=== PATIENT | male | born 1960 | race Two or more races ===

== ENCOUNTER 2024-08-15 16:36 | Inpatient (IN) | payer MEDICAID, OTHER ==
[~2024-08-15] VITALS: Ht 180.3 cm; Wt 87.2 kg
[2024-08-15 18:02] LABS: Basophils # (auto) 0 10 ^3/uL (0-0.2); Basophils % (auto) 0.2 % (0.0-2.0); Eosinophils # (auto) 0.1 10 ^3/uL (0-0.8); Eosinophils % (auto) 0.9 % (0.0-7.0); Hematocrit 41.6 % (41.0-53.0); Hemoglobin 13.6 g/dL (13.5-17.5); Lymphocytes # (auto) 1.8 10 ^3/uL (0.4-5.4); Lymphocytes % (auto) 20.1 % (10.0-50.0); Mean Corpuscular Hemoglobin 27.3 pg (28.0-32.0); Mean Corpuscular Hgb Conc. 32.7 g/dL (32.0-36.0); Mean Corpuscular Volume 83.7 fL (80.0-100.0); Monocytes # (auto) 0.9 10 ^3/uL (0-1.3); Monocytes % (auto) 10.7 % (0.0-12.0); Neutrophils # (auto) 5.9 10 ^3/uL (1.6-8.6); Neutrophils % (auto) 68.1 % (37.0-80.0); Nucleated Red Blood Cells % 0.4 %; Platelet Count (auto) 136 10^3/uL (140-450); Red Blood Cells 4.97 10^6/uL (4.5-5.90); White Blood Cell 8.7 10^3/uL (4.4-10.8)
--- NOTE | 2024-08-15 18:05 | DVH ---
EXAM: XY CHEST PORTABLE TECHNIQUE: Single frontal chest radiograph CLINICAL HISTORY: Shortness of breath COMPARISON: None Findings/Impression: Frontal chest radiograph demonstrates no acute osseous or superficial soft tissue abnormalities. The trachea is midline. The cardiac silhouette and mediastinum are within normal limits. No pneumothorax, pleural effusions, or consolidations.
[2024-08-15 18:17] LABS: Alanine Aminotransferase 30 U/L (7-40); Albumin 3.8 g/dL (3.2-4.8); Alkaline Phosphatase 108 U/L (46-116); Anion Gap 9 (5-15); Aspartate Aminotransferase 27 U/L (13-40); BUN/Creatinine Ratio 26.1 (10.0-20.0); Calcium 9.3 mg/dL (8.7-10.4); Carbon Dioxide 26 mmol/L (20-31); Chloride 103 mmol/L (98-107); Potassium 4.3 mmol/L (3.5-5.1); Sodium 138 mmol/L (136-145)
[2024-08-15 18:18] LABS: Bilirubin, Total 1.1 mg/dL (0.2-1.0); Blood Urea Nitrogen 48 mg/dL (9-23); Glucose 135 mg/dL (74-106); Total Protein 5.9 g/dL (5.7-8.2)
--- NOTE | 2024-08-15 22:53 | ED.PDOC ---
HPI Comments Patient is a obese 63-year-old male who arrives the ED with complaints of chest pain and shortness a breath events that have occurred at night over the past few days. Patient states the daytime the symptoms seemed to resolve. Patient denies any fever nausea or vomiting. Patient denies any history of pulmonary or cardiac concerns. Vital signs were stable on arrival. Chief Complaint: Shortness of Breath Time Seen by MD: 17:34 Reviewed Notes: Nurses Notes Allergies: Coded Allergies: NO KNOWN ALLERGIES (Unverified , 08/15/24) Information Source: Patient Mode of Arrival: Ambulatory Severity: Moderate Timing: Days Duration: Intermittent Prehospital treatment: None Location: Substernal Quality: Pressure, Heavy Onset: At Rest Cardiac Risk Factors: None PE Risk Factors: None History of: None Past Medical History PAST MEDICAL HISTORY: Denies Surgical History: Denies all surgeries Family History Family History: Reviewed,noncontributory to illness, No family hx of Cancer, No family hx of DM, No family hx of Heart pretty, No family hx of HTN, No family hx ofKidney pretty, No family hx of Liver pretty, No family hx of Lung pretty, No family hx of Stroke Social History Smoker: Non-Smoker Alcohol: Denies ETOH Use Drugs: Denies Drug Use Lives In: Home Constitutional: reports: weakness; denies: chills, diaphoresis, fatigue, fever, malaise, sweats, others EENTM: denies: blurred vision, double vision, ear bleeding, ear discharge, ear drainage, ear pain, ear ringing, eye pain, eye redness, hearing loss, mouth pain, mouth swelling, nasal discharge, nose bleeding, nose congestion, nose pain, photophobia, tearing, throat pain, throat swelling, voice changes, others Respiratory: reports: shortness of breath; denies: cough, hemoptysis, orthopnea , SOB at rest, SOB with excertion, stridor, wheezing, others Cardiovascular: reports: chest pain; denies: dizzy spells, diaphoresis, Dyspnea on exertion, edema, irregular heart beat, left arm pain, lightheadedness, palpitations, PND, syncope, others Gastrointestinal: denies: abdomen distended, abdominal pain, blood streaked bowels, constipated, diarrhea, dysphagia, difficulty swallowing, hematemesis, melena, nausea, poor appetite, poor fluid intake, rectal bleeding, rectal pain, vomiting, others Genitourinary: denies: burning, dysuria, flank pain, frequency, hematuria, incontinence, penile discharge, penile sore, pain, testicle pain, testicle swelling, urgency, others Neurological: denies: dizziness, fainting, headache, left sided numbness, left sided weakness, numbness, paresthesia, pre-existing deficit, right sided numbness, right sided weakness, seizure, speech problems, tingling, tremors, weakness, others Musculoskeletal: denies: back pain, gout, joint pain, joint swelling, muscle pain, muscle stiffness, neck pain, others Integumetry: denies: bruises, change in color, change in hair/nails, dryness, laceration, lesions, lumps, rash, wounds, others Allergic/Immunocompromised: denies: Difficulty Healing, Frequent Infections, Hives, Itching, others Hematologic/Lymphatic: denies: anemia, blood clots, easy bleeding, easy bruising, swollen glands, others Endocrine: denies: excessive hunger, excessive sweating, excessive thirst, excessive urination, flushing, intolerance to cold, intolerance to heat, unexplained weight gain, unexplained weight loss, others Psychiatric: denies: anxiety, bipolar disorder, depression, hopeless, panic disorder, schizophrenia, sleepless, suicidal, others Physical Exam General Appearance: Moderate Distress (Patient presents as a tyol-ka-jfecktjviv ill 63-year-old male. Patient does not appear to be in good overall health.), Obese HEENT: Normal ENT Inspection, Pharynx Normal, TMs Normal Neck: Full Range of Motion, Non-Tender, Normal, Normal Inspection Respiratory: Chest Non-Tender, Lungs Clear, No Accessory Muscle Use, No Respiratory Distress, Normal Breath Sounds, Other (Unremarkable auscultation bilateral lung arita.) Cardiovascular: No Edema, No JVD, No Murmur, No Gallop, Normal Peripheral Pulses, Regular Rate/Rhythm, Other (Unremarkable cardiac evaluation.) Breast Exam: Deferred Gastrointestinal: No Organomegaly, Non Tender, No Pulsatile Mass, Normal Bowel Sounds, Soft Genitalia: Deferred Pelvic: Deferred Rectal: Deferred Extremities: No calf tenderness, Normal capillary refill, Normal inspection, Normal range of motion, Non-tender, No pedal edema Neurologic: Alert, No Motor Deficits, Normal Affect, Normal Mood, No Sensory Deficits Cerebellar Function: Normal Reflexes: Normal Skin: Dry, Normal Color, Warm Lymphatic: No Adenopathy Was a procedure done? Was a procedure done?: No CP Differential Dx Differential Diagnosis: A-fib, A-Flutter, Atrial Dysrhythmia, AV Block 1st Degree, Heart Failure, Hyperventilation, DC, Renal Failure Differential Diagnosis: CHF Differential Diagnosis: Angina X-Ray, Labs, Meds, VS Vital Signs Date Time Temp Pulse Resp B/P (MAP) Pulse Ox O2 Delivery O2 Flow Rate FiO2 08/15/24 21:59 98.3 101 19 147/89 (108) 96 98.3 08/15/24 21:59 101 19 96 Room Air 08/15/24 16:54 102 08/15/24 16:49 97.9 109 16 133/74 (93) 96 Lab Test 08/15/24 20:56 08/15/24 18:36 08/15/24 17:36 Range/Units Troponin I High Sensitivity 502 *H 510 *H 495 *H </=54 ng/L White Blood Count 8.7 4.4-10.8 10^3/uL Red Blood Count 4.97 4.5-5.90 10^6/uL Hemoglobin 13.6 13.5-17.5 g/dL Hematocrit 41.6 41.0-53.0 % Mean Corpuscular Volume 83.7 80.0-100.0 fL Mean Corpuscular Hemoglobin 27.3 L 28.0-32.0 pg Mean Corpuscular Hemoglobin Concent 32.7 32.0-36.0 g/dL Red Cell Distribution Width 18.0 H 11.8-14.3 % Platelet Count 136 L 140-450 10^3/uL Mean Platelet Volume 9.0 6.9-10.8 fL Neutrophils (%) (Auto) 68.1 37.0-80.0 % Lymphocytes (%) (Auto) 20.1 10.0-50.0 % Monocytes (%) (Auto) 10.7 0.0-12.0 % Eosinophils (%) (Auto) 0.9 0.0-7.0 % Basophils (%) (Auto) 0.2 0.0-2.0 % Neutrophils # (Auto) 5.9 1.6-8.6 10 ^3/uL Lymphocytes # (Auto) 1.8 0.4-5.4 10 ^3/uL Monocytes # (Auto) 0.9 0-1.3 10 ^3/uL Eosinophils # (Auto) 0.1 0-0.8 10 ^3/uL Basophils # (Auto) 0 0-0.2 10 ^3/uL Nucleated Red Blood Cells 0.4 % Sodium Level 138 136-145 mmol/L Potassium Level 4.3 3.5-5.1 mmol/L Chloride Level 103 98-107 mmol/L Carbon Dioxide Level 26 20-31 mmol/L Anion Gap 9 5-15 Blood Urea Nitrogen 48 H 9-23 mg/dL Creatinine 1.84 H 0.700-1.30 mg/dL Glomerular Filtration Rate Calc 40 >90 mL/min BUN/Creatinine Ratio 26.1 H 10.0-20.0 Serum Glucose 135 H 74-106 mg/dL Calcium Level 9.3 8.7-10.4 mg/dL Total Bilirubin 1.1 H 0.2-1.0 mg/dL Aspartate Amino Transferase (AST) 27 13-40 U/L Alanine Aminotransferase (ALT) 30 7-40 U/L Alkaline Phosphatase 108 46-116 U/L Total Protein 5.9 5.7-8.2 g/dL Albumin 3.8 3.2-4.8 g/dL X-Ray, Labs, Meds, VS Comment All studies performed the ED were evaluated by me personally. Laboratories revealed what appears to be an acute on chronic renal concern as well as an el evated troponin. EKG showed a sinus tachycardia with a rate of 102. Multiple premature complexes in the ventricular and supraventricular areas as well as right bundle-branch block. AR interval of 187 and QT interval 409. Chest x-ray was unremarkable for any consolidation. No pneumothorax or effusions noted. Due to the elevated troponins and questionable EKG, patient will be admitted for cardiac evaluation tomorrow. Time of 1ST Reevaluation: 22:56 Reevaluation 1ST: Improved Consultation: PCP, Cardiology Patient Education/Counseling: Diagnosis, Treatment Family Education/Counseling: Diagnosis, Treatment Departure 1 Departure Time of Disposition: 22:56 Impression: Primary Impression: Acute renal failure superimposed on chronic kidney disease Additional Impressions: Elevated troponin Chest pain Disposition: 09 ADMITTED INPATIENT Condition: Stable Discharged With: Self Critical Care Note Critical Care Time?: No Stability Stability form required: No Heart Score Heart Score: Heart Score Response (Comments) Value History Slightly Suspicious 0 EKG Repolarization Disturb 1 Age 45-64 1 Risk Factors 1 or 2 risk factors 1 Troponin >3 x's Normal limit 2 Total 5 GIANA GRIFFITHS [facility] Aug 15, 2024 22:53
[2024-08-16] MEDS ORDERED: SODIUM CHLORIDE 0.9% 1,000 ML IV SCH (02:00)
[2024-08-16] MEDS ORDERED: ONDANSETRON HCL 4 MG/2 ML VIAL IV PRN (02:00)
[2024-08-16] MEDS ORDERED: DOCUSATE SOD 100 MG CAP PO PRN (02:00)
[2024-08-16] MEDS ORDERED: MORPHINE SULFATE INJ 2 MG/ml SYRG IV PRN ×2 (02:00→02:30)
[2024-08-16] MEDS ORDERED: hydrALAZINE HCL 20 MG/ML VL IV PRN ×2 (02:30→10:00)
[2024-08-16] MEDS ORDERED: NITROGLYCERIN 0.4 MG SL TAB SL PRN (02:30)
[2024-08-16] MEDS ORDERED: DEXTROSE (50%) 50ML SYRG IV PRN (02:30)
--- NOTE | 2024-08-16 02:47 | DVHHP2 ---
History of Present Illness Reason for Visit: Acute chest pain History of Present Illness The patient is a 63 years old male with past medical history of hypertension and diabetes mellitus who presented to [facility] ED with complaint of chest pain. Patient reports symptoms progressively get worse with shortness of b reaths, bilateral lower extremity swelling, generalized weakness, getting worse today that prompted this visit. Patient reports he has been taking Lasix from a friend at home due to lower extremity swelling. Patient was seen and evaluated in the ED, laboratory data shows WBC 8.7, platelets 136, sodium 138, potassium 4.3, BUN 48, creatinine 1.84, GFR 40, glucose 135, troponin 502, blood pressure 147/89, heart rate 101, temperature 98.3 F, O2 saturation 96% on oxygen. Patient was given aspirin 325 mg p.o. x1, please see medication orders section in the computer. On my assessment, patient denied chest pain at this moment, headache, no dizziness, no diaphoresis, no nausea, no vomiting, no fever, no chills. Patient was admitted for further evaluation and medical management. Past Medical History Hypertension, DM Past Surgical History Denies all surgeries Family History Reviewed, noncontributory to the management of this case. Past Social History The patient lives at home, denies smoking, alcohol or illicit drugs abuse. Review of Systems Constitutional: Yes: Weakness; No: Fever, Chills, Sweats, Malaise, Other Eyes: No: Pain, Vision change, Conjunctivae inflammation, Eyelid inflammation, Other, Redness ENT: No: Ear pain, Ear discharge, Nose pain, Nose discharge, Nose congestion, Mouth pain, Mouth swelling, Throat pain, Throat swelling, Other Respiratory: Shortness of breath, SOB with excertion, Other (SOB at rest); No: Cough, Dry, Wheezing, Hemoptysis, Pleuritic Pain, Sputum, Wheezing Cardiovascular: Chest Pain; No: Palpitations, Orthopnea, Paroxysmal Noc. Dyspnea, Edema, Lt Headedness, Other Gastrointestinal: No: Nausea, Vomiting, Abdominal Pain, Diarrhea, Constipation, Melena, Hematochezia, Other Genitourinary: No Dysuria, No Frequency, No Incontinence, No Hematuria, No Retention, No Other Musculoskeletal: No: other, neck pain, shoulder pain, arm pain, back pain, hand pain, leg pain, foot pain Skin: No: Rash, Lesions, Jaundice, Bruising, Other Neurological: No: Weakness, Numbness, Incoordination, Change in speech, Confusion, Seizures, Other Allergies: Coded Allergies: NO KNOWN ALLERGIES (Unverified , 08/15/24) Medications Current Medications Medications Dose Ordered Sig/Luis Armando Route Start Time Stop Time Status Last Admin Dose Admin Aspirin 81 mg DAILY PO 08/16/24 10:00 Atorvastatin Calcium 20 mg HS PO 08/16/24 22:00 Sodium Chloride 1,000 ml @ 60 mls/hr [id number] IV 08/16/24 02:00 Acetaminophen/ Hydrocodone Bitart 1 tab Q4HP PRN PO 08/16/24 02:00 Ondansetron HCl 4 mg Q4HP PRN IV 08/16/24 02:00 Docusate Sodium 100 mg BIDPRN PRN PO 08/16/24 02:00 Acetaminophen 650 mg Q6HP PRN PO 08/16/24 02:00 Morphine Sulfate 2 mg Q4HPRN PRN IV 08/16/24 02:00 Exam Vital Signs Vital Signs Date Time Temp Pulse Resp B/P (MAP) Pulse Ox O2 Delivery O2 Flow Rate FiO2 08/15/24 21:59 98.3 101 19 147/89 (108) 96 98.3 08/15/24 21:59 Room Air General Appearance: Alert, Oriented X3, Cooperative, No acute distress HEENT: Atraumatic, PERRLA, EOMI, Mucous membr. moist/pink Respiratory: Normal air movement, Other (Diminished breath sounds) Cardiovascular: Regular rate, Normal S1, Normal S2, No murmurs Abdominal: Normal bowel sounds, Soft, No tenderness, No hepatospenomegaly, No masses Extremities: No clubbing, No cyanosis, No edema, Normal pulses, No tenderness/swelling Skin: No rashes, No breakdown, No significant lesion Neuro: Normal speech, Normal tone, Sensation intact, Cranial nerves 3-12 NL, Reflexes 2+, Other (Generalized weakness) Psych/Mental Status: Mental status NL, Mood NL Labs/Xrays Labs Test 08/15/24 20:56 08/15/24 17:36 Range/Units Troponin I High Sensitivity 502 *H </=54 ng/L White Blood Count 8.7 4.4-10.8 10^3/uL Red Blood Count 4.97 4.5-5.90 10^6/uL Hemoglobin 13.6 13.5-17.5 g/dL Hematocrit 41.6 41.0-53.0 % Mean Corpuscular Volume 83.7 80.0-100.0 fL Mean Corpuscular Hemoglobin 27.3 L 28.0-32.0 pg Mean Corpuscular Hemoglobin Concent 32.7 32.0-36.0 g/dL Red Cell Distribution Width 18.0 H 11.8-14.3 % Platelet Count 136 L 140-450 10^3/uL Mean Platelet Volume 9.0 6.9-10.8 fL Neutrophils (%) (Auto) 68.1 37.0-80.0 % Lymphocytes (%) (Auto) 20.1 10.0-50.0 % Monocytes (%) (Auto) 10.7 0.0-12.0 % Eosinophils (%) (Auto) 0.9 0.0-7.0 % Basophils (%) (Auto) 0.2 0.0-2.0 % Neutrophils # (Auto) 5.9 1.6-8.6 10 ^3/uL Lymphocytes # (Auto) 1.8 0.4-5.4 10 ^3/uL Monocytes # (Auto) 0.9 0-1.3 10 ^3/uL Eosinophils # (Auto) 0.1 0-0.8 10 ^3/uL Basophils # (Auto) 0 0-0.2 10 ^3/uL Nucleated Red Blood Cells 0.4 % Sodium Level 138 136-145 mmol/L Potassium Level 4.3 3.5-5.1 mmol/L Chloride Level 103 98-107 mmol/L Carbon Dioxide Level 26 20-31 mmol/L Anion Gap 9 5-15 Blood Urea Nitrogen 48 H 9-23 mg/dL Creatinine 1.84 H 0.700-1.30 mg/dL Glomerular Filtration Rate Calc 40 >90 mL/min BUN/Creatinine Ratio 26.1 H 10.0-20.0 Serum Glucose 135 H 74-106 mg/dL Calcium Level 9.3 8.7-10.4 mg/dL Total Bilirubin 1.1 H 0.2-1.0 mg/dL Aspartate Amino Transferase (AST) 27 13-40 U/L Alanine Aminotransferase (ALT) 30 7-40 U/L Alkaline Phosphatase 108 46-116 U/L Total Protein 5.9 5.7-8.2 g/dL Albumin 3.8 3.2-4.8 g/dL PATIENT: ROSALINDA WETZELACCT: [id number] UNIT: [id number] : 1960 LOC: ER ROOM / BED: / AGE / SEX: 63 / M ADM STATUS: REG ER SERVICE [id number] ORDERING PHYSICIAN: GIANA GRIFFITHS PAC PROCEDURE(s): CXRP - CHEST PORTABLE REASON: Shortness of breath ORDER NUMBER(s): [id number], ACCESSION NUMBER(s): [id number] EXAM: XY CHEST PORTABLE TECHNIQUE: Single frontal chest radiograph CLINICAL HISTORY: Shortness of breath COMPARISON: None Findings/Impression: Frontal chest radiograph demonstrates no acute osseous or superficial soft tissue abnormalities. The trachea is midline. The cardiac silhouette and mediastinum are within normal limits. No pneumothorax, pleural effusions, or consolidations. Assessment/Plan Assessment/Plan Elevated troponin Acute chest pain Generalized weakness Acute respiratory distress Acute on chronic renal failure Diabetes mellitus with hyperglycemia Plan 1. Admit to telemetry unit 2. Breathing treatment 3. Pain control management 4. Management of fluids and electrolytes 5. Consultation for cardiology/hospitalist 6. Diagnostic tests chest x-ray 7. DVT prophylaxis on aspirin 8. Repeat labs CBC, CMP in a.m. 9. Continue with current medical management 10. Treatment plan discussed with patient and RN. Patient verbalized understanding. Plan discussed with: Patient, Daughter, Other (RN) My Orders Orders - CHRISTIN DENT DNP Procedure Category Date Status Time Complete Blood Count LAB 08/16/24 Logged 04:00 Comprehensive LAB 08/16/24 Logged Metabolic Panel 04:00 *[facility] CONS 08/16/24 Transmitted -[place] 01:50 * Cardiology Consult CONS 08/16/24 Transmitted 01:50 Aspirin Tablet PHA 08/16/24 In Process 10:00 Atorvastatin (Lipitor) PHA 08/16/24 In Process 22:00 Allergies KATRIN 08/16/24 In Process 01:50 Code Status CODE 08/16/24 Transmitted 01:50 Sodium Chloride 0.9% PHA 08/16/24 In Process 02:00 Oxygen Per Hour RT 08/16/24 Transmitted 01:50 Hydrocodone-Acet PHA 08/16/24 In Process 5/325mg Tab ([place] 02:00 Ondansetron Hcl PHA 08/16/24 In Process (Zofran) 02:00 Docusate Sodium PHA 08/16/24 In Process Capsule (Colace 02:00 Complete Blood Count LAB 08/17/24 Verified 04:00 Comprehensive LAB 08/17/24 Verified Metabolic Panel 04:00 Condition: Serious KATRIN 08/16/24 In Process 01:50 Acetaminophen Tablet PHA 08/16/24 In Process (Tylenol Tablet) 02:00 Bedrest With Bathroom KATRIN 08/16/24 In Process Privileg 01:50 Morphine Sulfate PHA 08/16/24 In Process Injection 02:00 Sequential KATRIN 08/16/24 In Process Compression Device Consistent DIET 08/16/24 Verified Carb(Ccho)Diabetes Breakfast B-Type Natriuretic LAB 08/16/24 Verified Peptide 02:23 Hydralazine Injection PHA 08/16/24 Verified (Apresoline Inject 02:30 Furosemide Injection PHA 08/16/24 Verified (Lasix Injection) 02:30 Furosemide Injection PHA 08/16/24 Verified (Lasix Injection) 10:00 Glucose Blood PHA 08/16/24 Verified (Accu-Chek Comfort 07:00 Mild Sliding Scale PHA 08/16/24 Verified 07:00 Dextrose 50% Syringe PHA 08/16/24 Verified 02:30 Admit ADMIT 08/16/24 Verified 02:23 Sodium Chloride Lock PHA 08/16/24 Verified (Saline Lock Ns) 06:00 Nitroglycerin PHA 08/16/24 Verified Sublingual (Ntrostat 02:30 Morphine Sulfate PHA 08/16/24 Verified Injection 02:30 Notify Md Of Changes [facility] 08/16/24 Verified From Base 02:23 Pilot Can Router For [facility] 08/16/24 Verified 24 Hours 02:23 Emergency Dysrhythmia [facility] 08/16/24 Verified Protocol 02:23 Rhythm Strips Once [facility] 08/16/24 Verified Every Shift 02:23 Oxygen By Nasal RT 08/16/24 Verified Cannula 02:23 Problem List: (1) Acute chest pain (2) Elevated troponin (3) Acute respiratory distress (4) Acute on chronic renal failure (5) Generalized weakness (6) Diabetes mellitus with hyperglycemia Date of Service: Aug 16, 2024 Billing Provider: CHRISTIN DENT DNP Common Visit Codes: [id number] INP/OBS CARE (HIGH) CHRISTIN DENT DNP Aug 16, 2024 02:47
[2024-08-16] MEDS: ASPirin-EC 325mg tab PO ONE (05:25)
[2024-08-16] MEDS: SODIUM CHLOR 0.9% PF (SALINE LOCK) 10ML VIAL/SYR IV SCH (05:43)
[2024-08-16] MEDS: FUROSEMIDE 20 MG/2 ML VIAL IV ONE (05:43)
[2024-08-16] MEDS: InsuLIN REG 1unit/0.01ml Soln (100units/ml) SC SCH (07:00)
[2024-08-16] MEDS: ACCU-CHEK COMFORT CURVE STRIP VI SCH (07:00)
[2024-08-16 07:13] LABS: Basophils # (auto) 0.1 10 ^3/uL (0-0.2); Eosinophils # (auto) 0.1 10 ^3/uL (0-0.8); Eosinophils % (auto) 1.2 % (0.0-7.0); Hematocrit 45.1 % (41.0-53.0); Hemoglobin 14.5 g/dL (13.5-17.5); Lymphocytes # (auto) 1.8 10 ^3/uL (0.4-5.4); Lymphocytes % (auto) 21.6 % (10.0-50.0); Mean Corpuscular Hemoglobin 27.1 pg (28.0-32.0); Mean Corpuscular Hgb Conc. 32.2 g/dL (32.0-36.0); Mean Corpuscular Volume 84.2 fL (80.0-100.0); Monocytes # (auto) 0.8 10 ^3/uL (0-1.3); Monocytes % (auto) 9.9 % (0.0-12.0); Neutrophils # (auto) 5.4 10 ^3/uL (1.6-8.6); Neutrophils % (auto) 66.3 % (37.0-80.0); Nucleated Red Blood Cells % 0.5 %; Platelet Count (auto) 154 10^3/uL (140-450); Red Blood Cells 5.36 10^6/uL (4.5-5.90); Red Cell Distribution Width 18.5 % (11.8-14.3); White Blood Cell 8.2 10^3/uL (4.4-10.8)
[2024-08-16 07:18] LABS: Alanine Aminotransferase 29 U/L (7-40); Alkaline Phosphatase 95 U/L (46-116); Anion Gap 7 (5-15); Aspartate Aminotransferase 30 U/L (13-40); Calcium 9.7 mg/dL (8.7-10.4); Carbon Dioxide 30 mmol/L (20-31); Chloride 101 mmol/L (98-107); Glucose 94 mg/dL (74-106); Potassium 4.2 mmol/L (3.5-5.1); Sodium 138 mmol/L (136-145)
[2024-08-16 07:19] LABS: Total Protein 6.6 g/dL (5.7-8.2)
[2024-08-16 07:21] LABS: Bilirubin, Total 1.4 mg/dL (0.2-1.0); Blood Urea Nitrogen 43 mg/dL (9-23)
--- NOTE | 2024-08-16 08:54 | DVHINCON2 ---
Date Seen: Aug 16, 2024 Referring Physician LIZZIE Tai Reason for Consultation Elevated troponin History of Present Illness This is a 63-year-old male who presented to the emergency room with a chief complaint shortness of breath for two weeks. The patient complains of shortness of breath associated with RIZZO, PND, and bilateral lower extremity edema. Denies orthopnea, chest pain, palpitations, diaphoresis, or syncopal events. He underwent a 12 lead electrocardiogram revealing a sinus rhythm with an associated first-degree atrioventricular block and right bundle branch block. Troponin levels have remained flat in the high 400s- low 500s ng/L. Reports a history of pxi-kgrlzrz-lojxqieek diabetes mellitus and hypertension, nevertheless the patient has not seen a PCP in many years neither taking any home medications in the past three weeks. Past Medical History Past medical history reviewed. No other significant than mentioned above. Past Surgical History Past surgical history reviewed. No other significant than mentioned above. Family History Family history reviewed. Social History Denies the use of illicit drugs, alcohol, or tobacco use. Allergies: Coded Allergies: NO KNOWN ALLERGIES (Unverified , 08/15/24) Home Meds Denies any current home medications. Current Medications Current Medications Medications (Trade) Dose Ordered Sig/Luis Armando Route PRN Reason Start Time Stop Time Status Last Admin Aspirin 81 mg DAILY PO 08/16/24 10:00 Atorvastatin Calcium (Lipitor) 20 mg HS PO 08/16/24 22:00 Sodium Chloride 1,000 ml @ 60 mls/hr [id number] IV 08/16/24 02:00 08/16/24 02:27 DC Acetaminophen/ Hydrocodone Bitart ([place] 5/325MG Tab) 1 tab Q4HP PRN PO MODERATE PAIN (4-6 PAIN SCALE) 08/16/24 02:00 Ondansetron HCl (Zofran) 4 mg Q4HP PRN IV NAUSEA / VOMITING 08/16/24 02:00 Docusate Sodium (Colace Capsule) 100 mg BIDPRN PRN PO FOR CONSTIPATION 08/16/24 02:00 Acetaminophen (Tylenol Tablet) 650 mg Q6HP PRN PO PAIN SCALE 1-3 OR TEMP>100.4 08/16/24 02:00 Morphine Sulfate 2 mg Q4HPRN PRN IV SEVERE PAIN (7-10 PAIN SCALE) 08/16/24 02:00 Hydralazine HCl (Apresoline Injection) 10 mg Q6HP PRN IV SBP>150 08/16/24 02:30 Furosemide (Lasix Injection) 20 mg DAILY IV 08/16/24 10:00 Diagnostic Test (Pha) (Accu-Chek Comfort Curve T) 1 strip ACHS 08/16/24 07:00 08/16/24 07:00 Insulin Human Regular (InsuLIN R) ACHS SC 08/16/24 07:00 Dextrose 50 ml UD PRN IV Blood Sugar LESS THAN 60 08/16/24 02:30 Sodium Chloride (Saline Lock Ns) 10 ml Q8HR IV 08/16/24 06:00 08/16/24 05:43 Nitroglycerin (Ntrostat Sublingual) 0.4 mg Q5MINP PRN SL FOR CHEST PAIN 08/16/24 02:30 Morphine Sulfate 2 mg Q30M PRN IV FOR CHEST PAIN 08/16/24 02:30 Review of Systems Constitutional: No symptom reported Ears, Nose, & Throat: No symptom reported Eyes: No symptom reported Neurological: No symptoms reported Pulmonary/Respiratory: SOB, PND, RIZZO Cardiovascular: BLE edema Gastrointestinal: No symptom reported Genitourinary: No symptom reported Musculoskeletal: No symptom reported Skin: No symptom reported Psychiatric: No symptom reported Endocrine: No symptom reported Hemotologic/Lymphatic: No symptom reported Vital Signs Vital Signs Date Time Temp Pulse Resp B/P (MAP) Pulse Ox O2 Delivery O2 Flow Rate FiO2 08/16/24 08:18 98.7 91 16 130/85 (100) 97 98.7 08/16/24 08:18 Room Air Physical Exam General Appearance: Cooperative. Well developed. Obese. Mild acute distress. Cane at side Head Exam: Normal inspection Neck Exam: Normal inspection. Non-tender. Normal alignment Pulmonary/Respiratory: Chest non-tender. Managed bilateral breath sounds Cardiovascular/Chest: Regular rate and rhythm. S1, S2. Sinus rhythm with first-degree AV block and RBBB. No murmurs. No JVD. Peripheral Pulses: 2+ Radial (R). 2+ Radial (L). 2+ Pedal (R). 2+ Pedal (L) Abdominal Exam: Normal bowel sounds. Soft. Nontender. Ankle Exam: Positive ankle edema Lower extremities: Positive lower extremity edema, L>R Neuro/Mental Status: A&O x4. Coherent Thoughts/Psych: Normal thought pattern. Appropriate mood and affect. Good judgement and insight Appearance: Mild acute distress Skin Exam: Scab to left anterior tibia, erythema present Labs/Diagnostic Data Labs Test 08/16/24 06:28 08/15/24 20:56 Range/Units White Blood Count 8.2 4.4-10.8 10^3/uL Red Blood Count 5.36 4.5-5.90 10^6/uL Hemoglobin 14.5 13.5-17.5 g/dL Hematocrit 45.1 41.0-53.0 % Mean Corpuscular Volume 84.2 80.0-100.0 fL Mean Corpuscular Hemoglobin 27.1 L 28.0-32.0 pg Mean Corpuscular Hemoglobin Concent 32.2 32.0-36.0 g/dL Red Cell Distribution Width 18.5 H 11.8-14.3 % Platelet Count 154 140-450 10^3/uL Mean Platelet Volume 9.8 6.9-10.8 fL Neutrophils (%) (Auto) 66.3 37.0-80.0 % Lymphocytes (%) (Auto) 21.6 10.0-50.0 % Monocytes (%) (Auto) 9.9 0.0-12.0 % Eosinophils (%) (Auto) 1.2 0.0-7.0 % Basophils (%) (Auto) 1.0 0.0-2.0 % Neutrophils # (Auto) 5.4 1.6-8.6 10 ^3/uL Lymphocytes # (Auto) 1.8 0.4-5.4 10 ^3/uL Monocytes # (Auto) 0.8 0-1.3 10 ^3/uL Eosinophils # (Auto) 0.1 0-0.8 10 ^3/uL Basophils # (Auto) 0.1 0-0.2 10 ^3/uL Nucleated Red Blood Cells 0.5 % Sodium Level 138 136-145 mmol/L Potassium Level 4.2 3.5-5.1 mmol/L Chloride Level 101 98-107 mmol/L Carbon Dioxide Level 30 20-31 mmol/L Anion Gap 7 5-15 Blood Urea Nitrogen 43 H 9-23 mg/dL Creatinine 1.87 H 0.700-1.30 mg/dL Glomerular Filtration Rate Calc 40 >90 mL/min BUN/Creatinine Ratio 23.0 H 10.0-20.0 Serum Glucose 94 74-106 mg/dL Calcium Level 9.7 8.7-10.4 mg/dL Total Bilirubin 1.4 H 0.2-1.0 mg/dL Aspartate Amino Transferase (AST) 30 13-40 U/L Alanine Aminotransferase (ALT) 29 7-40 U/L Alkaline Phosphatase 95 46-116 U/L B-Type Natriuretic Peptide 1199.87 0-100 pg/mL Total Protein 6.6 5.7-8.2 g/dL Albumin 4.0 3.2-4.8 g/dL Troponin I High Sensitivity 502 *H </=54 ng/L Assessment Acute on chronic unspecified CHF, NYHA Class III, newly diagnosed NSTEMI, likely type 2 secondary to above Right bundle branch block Suspected cellulitis to LLE Xtz-lcecofc-jyuscfqcl diabetes mellitus Hypertension Likely JAMAR on CKD Obesity Plan/Recommendation (Dr. Fields) The patient presents with newly diagnosed CHF. Obtain a transthoracic echocardiogram to further asses structural function. Initiate preload and afterload reduction as tolerated. Introduce GDMT for CHF as renal function permits. Maintain strict I&Os, daily weight and fluid restriction. Continue with a bilateral lower extremity venous US rule out DVT. Obtain Nephrology and wound care consultations. Initiate broad spectrum abx, consider transition to clindamycin if cellulitis suspected, rest of work-up per primary care team. Monitor ECG changes and notify. Thank you for allowing us to participate in this patient's care. Please call if you have any questions or concerns. This medical document was created using an electronic medical record system with voice recognition software and computerized dictation system. Although this document has been carefully reviewed, there might still be some phonetic and typographical errors. Occasional wrong-word or ``sound-alike substitutions may have occurred due to the inherent limitations of voice recognition software. These areas are purely typographical due to imperfections of the software programs and do not reflect any compromise in the patient's medical care. Please read the chart carefully and recognize, using context, where these substitutions have occurred. Plan discussed with: Patient, Other Date of Service: Aug 16, 2024 Billing Provider: DINESH KRUSE MD Cardiology Common Codes: [id number] INP/OBS CARE (High) ALON AGUILAR LENS BLOCK GAUGER Aug 16, 2024 08:54
[2024-08-16 09:25] VITALS: PULSE 90; RESP 16; O2SAT 97
[2024-08-16 10:27] LABS: Magnesium 2.1 mg/dL (1.6-2.6)
--- NOTE | 2024-08-16 13:57 | DVH ---
Bilateral lower extremity venous duplex Clinical History: Edema Comparison: None Technique: Duplex Doppler evaluation of the deep venous systems of both lower extremities from the common femora l veins to the popliteal veins including color Doppler and spectral/pulsed waveform analysis was perf ormed. Findings: RIGHT SIDE: The common femoral vein demonstrates appropriate compressibility and waveform variability. There is compressibility/patency of the great saphenous vein at the proximal thigh. The femoral vein demonstrates appropriate compressibility and waveform variability. The deep femoral vein demonstrates appropriate compressibility and waveform variability. The popliteal vein demonstrates appropriate compressibility and waveform variability. There is normal compressibility at the tibioperoneal trunk. LEFT SIDE: The common femoral vein demonstrates appropriate compressibility and waveform variability. There is compressibility/patency of the great saphenous vein at the proximal thigh. The femoral vein demonstrates appropriate compressibility and waveform variability. The deep femoral vein demonstrates appropriate compressibility and waveform variability. The popliteal vein demonstrates appropriate compressibility and waveform variability. There is normal compressibility at the tibioperoneal trunk. Impression: 1. No right or left femoropopliteal venous thrombosis. HS:Y
[2024-08-16 14:52] VITALS: BP 118/89; PULSE 80; RESP 18; TEMP 98.4; O2SAT 96
[2024-08-16] MEDS: ASPirin 81 mg TAB PO SCH (16:30)
[2024-08-16] MEDS: FUROSEMIDE 20 MG/2 ML VIAL IV SCH (16:32)
[2024-08-16] MEDS: cefTRIAXone 1GM/50ML D5W 50 ML IV ONE (16:35)
[2024-08-16] MEDS: METOPROLOL TARTRATE 25 MG TAB PO SCH (16:43)
[2024-08-16 17:28] VITALS: BP 123/55; PULSE 73; RESP 18; TEMP 98.9; O2SAT 97
[2024-08-16 19:38] VITALS: PULSE 64; RESP 14; O2SAT 95
[2024-08-16] MEDS: ATORVASTATIN 20 MG TAB PO SCH (22:42)
[2024-08-16 23:05] VITALS: BP 129/89; PULSE 99; RESP 17; TEMP 98.2; O2SAT 95
--- NOTE | 2024-08-16 23:32 | DVHPN2 ---
Subjective 08/16 update- Patient doing well, still gets short of breath,. Legs with significant swelling. Minimal rales. Cardiology following and consulted. Continuing diuresis, echo tomorrow. Continue telemetry. Reviewed: H&P Changes from previous H/P or p: No Changes General: Per HPI Objective Vitals Vital Signs Date Time Temp Pulse Resp B/P (MAP) Pulse Ox O2 Delivery O2 Flow Rate FiO2 08/16/24 22:04 67 14 110/57 (74) 96 08/16/24 19:38 98.1 98.1 08/16/24 19:38 Room Air* 0 21 Exam GEN: Healthy appearing, well-developed, NAD. HEENT: NC/AT; MMM. CV: RRR, no m/r/g. LUNGS: Bibasilar rales ABD: Soft, NT/ND, NBS, no masses or organomegaly. EXT: Bilateral pitting edema 3+ up to shins. NEURO: Ambulating with no limitations. No focal deficits. Medications Current Medications Medications Dose Ordered Sig/Luis Armando Route Start Time Stop Time Status Last Admin Dose Admin Aspirin 81 mg DAILY PO 08/16/24 10:00 08/16/24 16:30 81 MG Atorvastatin Calcium 20 mg HS PO 08/16/24 22:00 08/16/24 22:42 20 MG Acetaminophen/ Hydrocodone Bitart 1 tab Q4HP PRN PO 08/16/24 02:00 Ondansetron HCl 4 mg Q4HP PRN IV 08/16/24 02:00 Docusate Sodium 100 mg BIDPRN PRN PO 08/16/24 02:00 Acetaminophen 650 mg Q6HP PRN PO 08/16/24 02:00 Morphine Sulfate 2 mg Q4HPRN PRN IV 08/16/24 02:00 Hydralazine HCl 10 mg Q6HP PRN IV 08/16/24 02:30 Furosemide 20 mg DAILY IV 08/16/24 10:00 08/16/24 16:32 20 MG Diagnostic Test (Pha) 1 strip ACHS 08/16/24 07:00 08/16/24 22:00 1 STRIP Insulin Human Regular ACHS SC 08/16/24 07:00 08/16/24 22:38 3 UNITS Dextrose 50 ml UD PRN IV 08/16/24 02:30 Sodium Chloride 10 ml Q8HR IV 08/16/24 06:00 1/3/25 22:00 10 ML Nitroglycerin 0.4 mg Q5MINP PRN SL 08/16/24 02:30 Morphine Sulfate 2 mg Q30M PRN IV 08/16/24 02:30 Ceftriaxone Sodium 50 ml @ 100 mls/hr DAILY@09 IV 08/17/24 09:00 Metoprolol Tartrate 25 mg BID PO 08/16/24 10:00 08/16/24 16:43 25 MG Hydralazine HCl 10 mg Q6HP PRN IV 08/16/24 10:00 Laboratory Results Laboratory Tests 08/16/24 06:28 Chemistry Test 08/16/24 06:28 08/16/24 09:54 Albumin 4.0 g/dL (3.2-4.8) Calcium Level 9.7 mg/dL (8.7-10.4) Total Protein 6.6 g/dL (5.7-8.2) Magnesium Level 2.1 mg/dL (1.6-2.6) Lipid panel Test 08/16/24 09:54 Cholesterol Level 160 mg/dL (< 200) HDL Cholesterol 52 mg/dL (40-59) Triglycerides Level 92 mg/dL (< 150) Cardiac Markers Test 08/16/24 06:28 B-Type Natriuretic Peptide 1199.87 pg/mL (0-100) LFT Test 08/16/24 06:28 Alanine Aminotransferase (ALT) 29 U/L (7-40) Alkaline Phosphatase 95 U/L (46-116) Aspartate Amino Transferase (AST) 30 U/L (13-40) Total Bilirubin 1.4 mg/dL (0.2-1.0) H HgA1c, TSH Test 08/16/24 09:54 Hemoglobin A1c 6.7 % A1C (<5.7) H Thyroid Stimulating Hormone (TSH) 1.49 uIU/mL (0.55-4.78) Labs and/or images reviewed: Labs reviewed by me, Image(s) reviewed by me Assessment/Plan Assessment/Plan 08/16 update- Patient doing well, still gets short of breath,. Legs with significant swelling. Minimal rales. Cardiology following and consulted. Continuing diuresis, echo tomorrow. Continue telemetry. # Acute on chronic congestive heart failure, likely diastolic, rule out systolic: # bilateral pitting edema # type 2 NSTEMI - patient presenting with chest pain shortness of breath dyspnea on exertion, orthopnea PND. NYHA worsening 2-3 - on admit DVT ultrasound negative for any DVT bilateral -BNP elevated-CXR showing possible pulmonary vascular congestion was mostly normal x-ray. -on exam patient has minimal bibasilar rales, but significant pitting edema 3+ up to upper shins. - differential includes acute on chronic CHF exacerbation but could also be chronic venous insufficiency, DVT unlikely with a rule out. --cardiology consulted, continue IV diuresis Lasix 20 b.i.d.. -started on beta-kimberly # left weber anterior wound, healing well. Likely venous stasis ulcer-we will get consulted keep dry # JAMAR, possible CKD-nephrology consulted. Diet cardiac DVT prophylaxis Lovenox subQ GI prophylaxis tolerating diet Med tele Full code Plan discussed with: Patient My Orders Orders - DAVID ARORA MD Procedure Category Date Status Time * Dietary Consult CONS 08/16/24 Transmitted 15:25 Apply: KATRIN 08/16/24 In Process 11:00 Date of Service: Aug 16, 2024 Billing Provider: DAVID ARORA MD Common Visit Codes: [id number] INP/OBS CARE(HIGH) DAVID ARORA MD Aug 16, 2024 23:32
[2024-08-17] VITALS (8 sets, daily range): BP systolic 128–140; BP diastolic 66–101; PULSE 61–97; RESP 15–19; TEMP 97.9–98.4; O2SAT 94–100
[2024-08-17 06:14] LABS: Basophils # (auto) 0 10 ^3/uL (0-0.2); Basophils % (auto) 0.2 % (0.0-2.0); Eosinophils # (auto) 0.1 10 ^3/uL (0-0.8); Hemoglobin 13.5 g/dL (13.5-17.5); Lymphocytes # (auto) 1.4 10 ^3/uL (0.4-5.4); Mean Corpuscular Hemoglobin 26.9 pg (28.0-32.0); Monocytes # (auto) 0.7 10 ^3/uL (0-1.3); Red Blood Cells 5.01 10^6/uL (4.5-5.90)
[2024-08-17 06:17] LABS: Eosinophils % (auto) 1.2 % (0.0-7.0); Hematocrit 41.1 % (41.0-53.0); Lymphocytes % (auto) 19.9 % (10.0-50.0); Mean Corpuscular Hgb Conc. 32.7 g/dL (32.0-36.0); Mean Corpuscular Volume 82.1 fL (80.0-100.0); Monocytes % (auto) 10.4 % (0.0-12.0); Neutrophils # (auto) 4.9 10 ^3/uL (1.6-8.6); Neutrophils % (auto) 68.3 % (37.0-80.0); Nucleated Red Blood Cells % 0.3 %; Platelet Count (auto) 144 10^3/uL (140-450); White Blood Cell 7.2 10^3/uL (4.4-10.8)
[2024-08-17 06:34] LABS: Alanine Aminotransferase 23 U/L (7-40); Albumin 3.5 g/dL (3.2-4.8); Alkaline Phosphatase 85 U/L (46-116); Anion Gap 7 (5-15); Aspartate Aminotransferase 21 U/L (13-40); BUN/Creatinine Ratio 23.1 (10.0-20.0); Calcium 9.5 mg/dL (8.7-10.4); Carbon Dioxide 27 mmol/L (20-31); Chloride 102 mmol/L (98-107); Glucose 90 mg/dL (74-106); Potassium 4.2 mmol/L (3.5-5.1); Sodium 136 mmol/L (136-145)
[2024-08-17 06:35] LABS: Bilirubin, Total 1.1 mg/dL (0.2-1.0); Blood Urea Nitrogen 40 mg/dL (9-23); Total Protein 5.7 g/dL (5.7-8.2)
[2024-08-17] MEDS: cefTRIAXone 1GM/50ML D5W 50 ML IV SCH (09:40)
--- NOTE | 2024-08-17 12:33 | DVHPN2 ---
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 No cardiac events reported Objective vital signs Vital Sign Date Time Temp Pulse Resp B/P (MAP) Pulse Ox O2 Delivery O2 Flow Rate FiO2 08/17/24 10:24 140/101 08/17/24 09:53 61 08/17/24 09:00 98.1 15 98 98.1 08/16/24 23:05 Room Air* 0 21 Total Intake and Output 08/16/24 08/16/24 08/17/24 15:00 23:00 07:00 Intake Total 50 ml Output Total 200 ml Balance -150 ml medications Current Medications Medications Dose Ordered Sig/Luis Armando Route Start Time Stop Time Status Last Admin Dose Admin Aspirin 81 mg DAILY PO 08/16/24 10:00 08/17/24 09:54 81 MG Atorvastatin Calcium 20 mg HS PO 08/16/24 22:00 08/16/24 22:42 20 MG Acetaminophen/ Hydrocodone Bitart 1 tab Q4HP PRN PO 08/16/24 02:00 Ondansetron HCl 4 mg Q4HP PRN IV 08/16/24 02:00 Docusate Sodium 100 mg BIDPRN PRN PO 08/16/24 02:00 Acetaminophen 650 mg Q6HP PRN PO 08/16/24 02:00 Morphine Sulfate 2 mg Q4HPRN PRN IV 08/16/24 02:00 Hydralazine HCl 10 mg Q6HP PRN IV 08/16/24 02:30 Furosemide 20 mg DAILY IV 08/16/24 10:00 08/17/24 10:24 20 MG Diagnostic Test (Pha) 1 strip ACHS 08/16/24 07:00 08/17/24 06:15 1 STRIP Insulin Human Regular ACHS SC 08/16/24 07:00 08/16/24 22:38 3 UNITS Dextrose 50 ml UD PRN IV 08/16/24 02:30 Sodium Chloride 10 ml Q8HR IV 08/16/24 06:00 08/17/24 06:14 10 ML Nitroglycerin 0.4 mg Q5MINP PRN SL 08/16/24 02:30 Morphine Sulfate 2 mg Q30M PRN IV 08/16/24 02:30 Ceftriaxone Sodium 50 ml @ 100 mls/hr DAILY@09 IV 08/17/24 09:00 08/17/24 09:40 100 MLS/HR Metoprolol Tartrate 25 mg BID PO 08/16/24 10:00 08/17/24 09:53 25 MG Hydralazine HCl 10 mg Q6HP PRN IV 08/16/24 10:00 Examination: GENERAL:Normal, LUNGS:Normal, CVS:Normal, NEURO:Normal laboratory and microbiology Laboratory Tests 08/17/24 05:43 Test 08/17/24 05:43 Range/Units Serum Glucose 90 74-106 mg/dL Problem List/Assessment/Plan Problem List/Assessment/Plan Acute on chronic decompensated HFrEF, NYHA Class III, newly diagnosed NSTEMI, likely type 2 secondary to above Right bundle branch block Suspected cellulitis to LLE Qxj-dfvrkrc-otvanoqyz diabetes mellitus Hypertension Likely JAMAR on CKD Obesity Plan/Recommendation (Dr. Sharpe) The patient was seen and examined at bedside with . Transthoracic echocardiogram confirms EF less than 20% with severely dilated left ventricle and severe global hypokinesis. Continue GDMT for CHF as renal function permits, creatinine today 1.73 (Hold FELICE/ARB/ARNI and mineral corticoid receptor agonist). Preload and afterload reduction as tolerated. Continue with obtaining daily weights, maintaining fluid restriction, and strict intake and outputs. Cardiac surveillance, monitor for any ECG changes. We will consider possible ischemic workup after patient properly diuresed. Thank you for allowing us to care for this patient. Please call with any questions or concerns. This medical document was created using an electronic medical record system with voice recognition software and computerized dictation system. Although this document has been carefully reviewed, there might still be some phonetic and typographical errors. Occasional wrong-word or ``sound-alike substitutions may have occurred due to the inherent limitations of voice recognition software. These areas are purely typographical due to imperfections of the software programs and do not reflect any compromise in the patient's medical care. Please read the chart carefully and recognize, using context, where these substitutions have occurred. Plan discussed with: Patient Date of Service: Aug 17, 2024 Billing Provider: KRZYSZTOF LEWIS Common Visit Codes: [id number] INP/OBS CARE(HIGH) KRZYSZTOF LEWIS Aug 17, 2024 12:32
--- NOTE | 2024-08-17 13:20 | DVHSR ---
APPROVED REPORT EXAM: Two-dimensional and M-mode echocardiogram with Doppler and color Doppler. Blood Pressure: 128/85 mmHg INDICATION New onset CHF RISK FACTORS Obesity: Height: 5'11", Weight: 229 DIMENSIONS LVDd6.7 (3.8-5.7cm)LA (2D)5.0 (1.9-4.0cm)Aortic Root3.4 (2.0-3.7cm) LVDs6.2 (2.5-4.0cm)LA (MM) (1.9-4.0cm)Aortic Cusp Exc1.8 (1.5-2.0cm) EF (%) 14.0 (55-70%)Rt. Atrium6.0 (1.9-4.0cm)Asc. Aorta cm IVSd1.2 (0.7-1.1cm)RV (D)5.5 (1.8-2.4cm) PWd1.2 (0.7-1.1cm) Mitral Valve MitralMitral Stenosis E wave0.89m/sMV Mean GR.mmHg A wave0.31m/sMV Peak GR.mmHg E/A ratio2.92D MVAcm2 DECEL [id number] 1/2 Timems Aortic Valve Aortic ValveAortic Stenosis V10.49m/Mamadou Mean GR.4mmHg V21.17m/Mamadou Peak GR.5mmHg LVOT Diameter2.3 (1.8-2.4cm)Doppler AVA1.74cm2 Pulmonic Valve V20.82m/s Tricuspid Valve TR Velocity3.38m/s [id number] LEFT VENTRICLE The Left Ventricle is severely dilated. There is normal left ventricular wall thickness. Tissue Doppler imaging reveals moderate diastolic dysfunction. Left ventricle systolic function is severely reduced, The Ejection Fraction is <20%. There is severe global hypokinesis. RIGHT VENTRICLE The right ventricle is mildly to moderately dilated. Systolic function is mildly reduced. ATRIA The left atrium is mildly dilated. The right atrium size is normal. MITRAL VALVE The mitral valve is normal in structure and function. Mitral regurgitation is mild. PULMONIC VALVE The pulmonic valve is normal in structure and function. There is trace pulmonic valvular regurgitation. TRICUSPID VALVE The tricuspid valve is normal. There is mild tricuspid regurgitation. AORTIC VALVE The aortic valve is mildlysclerotic. No aortic regurgitation is present. No significant aortic valve stenosis. GREAT VESSELS The aortic root is normal size. PERICARDIAL EFFUSION The pericardium appears normal. Conclusion The Left Ventricle is severely dilated. There is normal left ventricular wall thickness. Left ventric le systolic function is severely reduced, the Ejection Fraction is <20%. There is severe global hypok inesis. Tissue Doppler imaging reveals moderate diastolic dysfunction. The right ventricle is mildly to moderately dilated. RV systolic function is mildly reduced. The left atrium is mildly dilated. No significant valvular abnormalities. IVC is dilated and collapses > 50% with inspiration. The pericardium appears normal.
--- NOTE | 2024-08-17 17:58 | DVHINCON2 ---
Date of service: Aug 17, 2024 Referring Physician Hospitalist Reason for Consultation JAMAR History of Present Illness 63-year-old male past medical history of hypertension diabetes presents to the hospital complaining of shortness of breath and swelling. Patient was admitted and diagnosed with new onset congestive heart failure with ejection fraction 20%. He has no previous history of kidney disease baseline is unknown. Nephrology consulted due to elevated creatinine level. Past Medical History Diabetes and hypertension Allergies: Coded Allergies: NO KNOWN ALLERGIES (Unverified , 08/15/24) Current Medications Current Medications Medications (Trade) Dose Ordered Sig/Luis Armando Route PRN Reason Start Time Stop Time Status Last Admin Atorvastatin Calcium (Lipitor) 20 mg HS PO 08/16/24 22:00 08/16/24 22:42 Ceftriaxone Sodium 50 ml @ 100 mls/hr DAILY@09 IV 08/17/24 09:00 08/17/24 09:40 Empaglifozin (Jardiance) 10 mg DAILY PO 08/18/24 10:00 Furosemide (Lasix Injection) 20 mg BIDD IV 08/17/24 18:00 Review of Systems Shortness of breath H&P Exam Vital Signs/I&O Vital Sign Date Time Temp Pulse Resp B/P (MAP) Pulse Ox O2 Delivery O2 Flow Rate FiO2 08/17/24 17:00 98.4 75 19 132/95 (107) 100 98.4 08/16/24 23:05 Room Air* 0 21 Intake and Output 08/16/24 08/17/24 19:00 07:00 Intake Total 50 ml Output Total 200 ml Balance -150 ml Intake Oral 50 ml Output Urine Total 200 ml Physical Exam Elderly male Nonacute distress Abdomen is soft Regular rate and rhythm Labs/Diagnostic Data Labs/Diagnostic Data Laboratory Tests Test 08/17/24 05:43 08/16/24 09:54 08/16/24 06:28 08/15/24 20:56 Range/Units White Blood Count 7.2 8.2 4.4-10.8 10^3/uL Red Blood Count 5.01 5.36 4.5-5.90 10^6/uL Hemoglobin 13.5 14.5 13.5-17.5 g/dL Hematocrit 41.1 45.1 41.0-53.0 % Mean Corpuscular Volume 82.1 84.2 80.0-100.0 fL Mean Corpuscular Hemoglobin 26.9 L 27.1 L 28.0-32.0 pg Mean Corpuscular Hemoglobin Concent 32.7 32.2 32.0-36.0 g/dL Red Cell Distribution Width 18.0 H 18.5 H 11.8-14.3 % Platelet Count 144 154 140-450 10^3/uL Mean Platelet Volume 9.0 9.8 6.9-10.8 fL Neutrophils (%) (Auto) 68.3 66.3 37.0-80.0 % Lymphocytes (%) (Auto) 19.9 21.6 10.0-50.0 % Monocytes (%) (Auto) 10.4 9.9 0.0-12.0 % Eosinophils (%) (Auto) 1.2 1.2 0.0-7.0 % Basophils (%) (Auto) 0.2 1.0 0.0-2.0 % Neutrophils # (Auto) 4.9 5.4 1.6-8.6 10 ^3/uL Lymphocytes # (Auto) 1.4 1.8 0.4-5.4 10 ^3/uL Monocytes # (Auto) 0.7 0.8 0-1.3 10 ^3/uL Eosinophils # (Auto) 0.1 0.1 0-0.8 10 ^3/uL Basophils # (Auto) 0 0.1 0-0.2 10 ^3/uL Nucleated Red Blood Cells 0.3 0.5 % Sodium Level 136 138 136-145 mmol/L Potassium Level 4.2 4.2 3.5-5.1 mmol/L Chloride Level 102 101 98-107 mmol/L Carbon Dioxide Level 27 30 20-31 mmol/L Anion Gap 7 7 5-15 Blood Urea Nitrogen 40 H 43 H 9-23 mg/dL Creatinine 1.73 H 1.87 H 0.700-1.30 mg/dL Glomerular Filtration Rate Calc 44 40 >90 mL/min BUN/Creatinine Ratio 23.1 H 23.0 H 10.0-20.0 Serum Glucose 90 94 74-106 mg/dL Calcium Level 9.5 9.7 8.7-10.4 mg/dL Total Bilirubin 1.1 H 1.4 H 0.2-1.0 mg/dL Aspartate Amino Transferase (AST) 21 30 13-40 U/L Alanine Aminotransferase (ALT) 23 29 7-40 U/L Alkaline Phosphatase 85 95 46-116 U/L Total Protein 5.7 6.6 5.7-8.2 g/dL Albumin 3.5 4.0 3.2-4.8 g/dL Hemoglobin A1c 6.7 H <5.7 % A1C Magnesium Level 2.1 1.6-2.6 mg/dL Triglycerides Level 92 < 150 mg/dL Cholesterol Level 160 < 200 mg/dL LDL Cholesterol 96 < 100 mg/dL HDL Cholesterol 52 40-59 mg/dL Thyroid Stimulating Hormone (TSH) 1.49 0.55-4.78 uIU/mL B-Type Natriuretic Peptide 1199.87 0-100 pg/mL Troponin I High Sensitivity 502 *H </=54 ng/L Test 08/15/24 18:36 08/15/24 17:36 Range/Units Troponin I High Sensitivity 510 *H 495 *H </=54 ng/L White Blood Count 8.7 4.4-10.8 10^3/uL Red Blood Count 4.97 4.5-5.90 10^6/uL Hemoglobin 13.6 13.5-17.5 g/dL Hematocrit 41.6 41.0-53.0 % Mean Corpuscular Volume 83.7 80.0-100.0 fL Mean Corpuscular Hemoglobin 27.3 L 28.0-32.0 pg Mean Corpuscular Hemoglobin Concent 32.7 32.0-36.0 g/dL Red Cell Distribution Width 18.0 H 11.8-14.3 % Platelet Count 136 L 140-450 10^3/uL Mean Platelet Volume 9.0 6.9-10.8 fL Neutrophils (%) (Auto) 68.1 37.0-80.0 % Lymphocytes (%) (Auto) 20.1 10.0-50.0 % Monocytes (%) (Auto) 10.7 0.0-12.0 % Eosinophils (%) (Auto) 0.9 0.0-7.0 % Basophils (%) (Auto) 0.2 0.0-2.0 % Neutrophils # (Auto) 5.9 1.6-8.6 10 ^3/uL Lymphocytes # (Auto) 1.8 0.4-5.4 10 ^3/uL Monocytes # (Auto) 0.9 0-1.3 10 ^3/uL Eosinophils # (Auto) 0.1 0-0.8 10 ^3/uL Basophils # (Auto) 0 0-0.2 10 ^3/uL Nucleated Red Blood Cells 0.4 % Sodium Level 138 136-145 mmol/L Potassium Level 4.3 3.5-5.1 mmol/L Chloride Level 103 98-107 mmol/L Carbon Dioxide Level 26 20-31 mmol/L Anion Gap 9 5-15 Blood Urea Nitrogen 48 H 9-23 mg/dL Creatinine 1.84 H 0.700-1.30 mg/dL Glomerular Filtration Rate Calc 40 >90 mL/min BUN/Creatinine Ratio 26.1 H 10.0-20.0 Serum Glucose 135 H 74-106 mg/dL Calcium Level 9.3 8.7-10.4 mg/dL Total Bilirubin 1.1 H 0.2-1.0 mg/dL Aspartate Amino Transferase (AST) 27 13-40 U/L Alanine Aminotransferase (ALT) 30 7-40 U/L Alkaline Phosphatase 108 46-116 U/L Total Protein 5.9 5.7-8.2 g/dL Albumin 3.8 3.2-4.8 g/dL Assessment Acute kidney injury hemodynamically mediated Chronic kidney disease unspecified baseline unknown New onset decompensated systolic heart failure Hypertension Diabetes Obtain urinalysis and urine protein creatinine ratio Fluid restriction Cardiology Diuretics Low-salt diet BP medication optimization If patient creatinine continues to improve then recommend afterload reduction. Rest of care as per primary medical team. Patient will require outpatient renal follow-up Plan discussed with: Patient DENILSON HERRING MD Aug 17, 2024 17:58
[2024-08-17] MEDS: FUROSEMIDE 20 MG/2 ML VIAL IV SCH (18:34)
--- NOTE | 2024-08-17 20:23 | DVHPN2 ---
Subjective 08/16 update- Patient doing well, still gets short of breath,. Legs with significant swelling. Minimal rales. Cardiology following and consulted. Continuing diuresis, echo tomorrow. Continue telemetry. Reviewed: H&P Changes from previous H/P or p: No Changes General: Per HPI Objective Vitals Vital Signs Date Time Temp Pulse Resp B/P (MAP) Pulse Ox O2 Delivery O2 Flow Rate FiO2 08/17/24 18:34 132/95 08/17/24 17:00 98.4 75 19 100 98.4 08/17/24 08:00 Room Air* 0 21 Intake/Output Intake and Output 08/17/24 07:00 Intake Total 50 ml Output Total 200 ml Balance -150 ml Intake Oral 50 ml Output Urine Total 200 ml Exam GEN: Healthy appearing, well-developed, NAD. HEENT: NC/AT; MMM. CV: RRR, no m/r/g. LUNGS: Bibasilar rales ABD: Soft, NT/ND, NBS, no masses or organomegaly. EXT: Bilateral pitting edema 1+ up to shins. NEURO: Ambulating with no limitations. No focal deficits. Medications Current Medications Medications Dose Ordered Sig/Luis Armando Route Start Time Stop Time Status Last Admin Dose Admin Aspirin 81 mg DAILY PO 08/16/24 10:00 08/17/24 09:54 81 MG Atorvastatin Calcium 20 mg HS PO 08/16/24 22:00 08/16/24 22:42 20 MG Acetaminophen/ Hydrocodone Bitart 1 tab Q4HP PRN PO 08/16/24 02:00 Ondansetron HCl 4 mg Q4HP PRN IV 08/16/24 02:00 Docusate Sodium 100 mg BIDPRN PRN PO 08/16/24 02:00 Acetaminophen 650 mg Q6HP PRN PO 08/16/24 02:00 Morphine Sulfate 2 mg Q4HPRN PRN IV 08/16/24 02:00 Hydralazine HCl 10 mg Q6HP PRN IV 08/16/24 02:30 Diagnostic Test (Pha) 1 strip ACHS 08/16/24 07:00 08/17/24 16:36 1 STRIP Insulin Human Regular ACHS SC 08/16/24 07:00 08/17/24 12:56 3 UNITS Dextrose 50 ml UD PRN IV 08/16/24 02:30 Sodium Chloride 10 ml Q8HR IV 08/16/24 06:00 08/17/24 13:35 10 ML Nitroglycerin 0.4 mg Q5MINP PRN SL 08/16/24 02:30 Morphine Sulfate 2 mg Q30M PRN IV 08/16/24 02:30 Ceftriaxone Sodium 50 ml @ 100 mls/hr DAILY@09 IV 08/17/24 09:00 08/17/24 09:40 100 MLS/HR Metoprolol Tartrate 25 mg BID PO 08/16/24 10:00 08/17/24 09:53 25 MG Hydralazine HCl 10 mg Q6HP PRN IV 08/16/24 10:00 Empaglifozin 10 mg DAILY PO 08/18/24 10:00 Furosemide 20 mg BIDD IV 08/17/24 18:00 08/17/24 18:34 20 MG Laboratory Results Laboratory Tests 08/17/24 05:43 Chemistry Test 08/17/24 05:43 Albumin 3.5 g/dL (3.2-4.8) Calcium Level 9.5 mg/dL (8.7-10.4) Total Protein 5.7 g/dL (5.7-8.2) LFT Test 08/17/24 05:43 Alanine Aminotransferase (ALT) 23 U/L (7-40) Alkaline Phosphatase 85 U/L (46-116) Aspartate Amino Transferase (AST) 21 U/L (13-40) Total Bilirubin 1.1 mg/dL (0.2-1.0) H Labs and/or images reviewed: Labs reviewed by me, Image(s) reviewed by me Assessment/Plan Assessment/Plan 08/17 update- Patient doing well, lungs clear, legs improving. echo today and cardiology continues to follow. on tele. # Acute on chronic congestive heart failure, diastolic and systolic, newly diagnosed # bilateral pitting edema # type 2 NSTEMI - patient presenting with chest pain shortness of breath dyspnea on exertion, orthopnea PND. NYHA worsening 2-3 - on admit DVT ultrasound negative for any DVT bilateral -BNP elevated-CXR showing possible pulmonary vascular congestion was mostly normal x-ray. -on exam patient has minimal bibasilar rales, but significant pitting edema 3+ up to upper shins. - echo 08/17 - EF less than 20% with severely dilated left ventricle and severe global hypokinesis. - differential includes acute on chronic CHF exacerbation but could also be chronic venous insufficiency, DVT unlikely with a rule out. --cardiology consulted, continue IV diuresis Lasix 20 b.i.d.. -started on beta-kimberly. start GDMT as telra;cori (renal tox meds held, robbi arb arni, mra) # left weber anterior wound, healing well. Likely venous stasis ulcer-we will get consulted keep dry # JAMAR, possible CKD-nephrology consulted. Diet cardiac DVT prophylaxis Lovenox subQ GI prophylaxis tolerating diet Med tele Full code Plan discussed with: Patient Date of Service: Aug 17, 2024 Billing Provider: DAVID ARORA MD Common Visit Codes: [id number] INP/OBS CARE(HIGH) DAVID ARORA MD Aug 17, 2024 20:23
[2024-08-18] VITALS (8 sets, daily range): BP systolic 113–138; BP diastolic 67–88; PULSE 59–84; RESP 18–20; TEMP 97.9–98.4; O2SAT 87–99
--- NOTE | 2024-08-18 09:23 | DVHPN2 ---
Progress Note Date Seen: Aug 18, 2024 Medical Necessity Reason Pt with a Central, PICC or Fol: No Subjective Patient reports: Feels better Objective vital signs Vital Sign Date Time Temp Pulse Resp B/P (MAP) Pulse Ox O2 Delivery O2 Flow Rate FiO2 08/18/24 05:54 138/86 08/18/24 05:00 98.4 80 20 99 98.4 08/17/24 20:00 Room Air* 0 21 Total Intake and Output 08/17/24 08/17/24 08/18/24 15:00 23:00 07:00 Intake Total 50 ml 260 ml 600 ml Balance 50 ml 260 ml 600 ml medications Current Medications Medications Dose Ordered Sig/Luis Armando Route Start Time Stop Time Status Last Admin Dose Admin Aspirin 81 mg DAILY PO 08/16/24 10:00 08/17/24 09:54 81 MG Atorvastatin Calcium 20 mg HS PO 08/16/24 22:00 08/17/24 22:27 20 MG Acetaminophen/ Hydrocodone Bitart 1 tab Q4HP PRN PO 08/16/24 02:00 Ondansetron HCl 4 mg Q4HP PRN IV 08/16/24 02:00 Docusate Sodium 100 mg BIDPRN PRN PO 08/16/24 02:00 Acetaminophen 650 mg Q6HP PRN PO 08/16/24 02:00 Morphine Sulfate 2 mg Q4HPRN PRN IV 08/16/24 02:00 Hydralazine HCl 10 mg Q6HP PRN IV 08/16/24 02:30 Diagnostic Test (Pha) 1 strip ACHS 08/16/24 07:00 08/18/24 05:49 1 STRIP Insulin Human Regular ACHS SC 08/16/24 07:00 08/17/24 22:34 2 UNITS Dextrose 50 ml UD PRN IV 08/16/24 02:30 Sodium Chloride 10 ml Q8HR IV 08/16/24 06:00 08/18/24 05:54 10 ML Nitroglycerin 0.4 mg Q5MINP PRN SL 08/16/24 02:30 Morphine Sulfate 2 mg Q30M PRN IV 08/16/24 02:30 Ceftriaxone Sodium 50 ml @ 100 mls/hr DAILY@09 IV 08/17/24 09:00 08/17/24 09:40 100 MLS/HR Metoprolol Tartrate 25 mg BID PO 08/16/24 10:00 08/17/24 22:27 25 MG Hydralazine HCl 10 mg Q6HP PRN IV 08/16/24 10:00 Empaglifozin 10 mg DAILY PO 08/18/24 10:00 Furosemide 20 mg BIDD IV 08/17/24 18:00 08/18/24 05:54 20 MG Examination: GENERAL:Normal, LUNGS:Normal, CVS:Abnormal laboratory and microbiology Laboratory Tests 08/17/24 05:43 Test 08/17/24 05:43 Range/Units Serum Glucose 90 74-106 mg/dL Problem List/Assessment/Plan Problem List/Assessment/Plan Acute kidney injury hemodynamically mediated Chronic kidney disease unspecified baseline unknown New onset decompensated systolic heart failure Hypertension Diabetes obtain labs today Obtain urinalysis and urine protein creatinine ratio Fluid restriction Cardiology Diuretics Low-salt diet BP medication optimization If patient creatinine continues to improve then recommend afterload reduction. Rest of care as per primary medical team. Patient will require outpatient renal follow-up Plan discussed with: Patient My Orders My Orders Orders - DENILSON HERRING MD Procedure Category Date Status Time Urine LAB 08/17/24 Logged Protein/Creatinine Dietary Evaluation Review Comments: 1. Continue current diet 2. Consider adding Alberto Bid (180kcal, 5 gpro) if wound worsens Expected Outcomes/Goals: 1. Pt will consume >75% of needs within 3-5 days DENILSON HERRING MD Aug 18, 2024 09:23
[2024-08-18] MEDS: EMPAGLIFLOZIN 10 MG TAB PO SCH (09:36)
[2024-08-18 10:39] LABS: Basophils # (auto) 0 10 ^3/uL (0-0.2); Basophils % (auto) 0.2 % (0.0-2.0); Eosinophils # (auto) 0.1 10 ^3/uL (0-0.8); Lymphocytes # (auto) 1.3 10 ^3/uL (0.4-5.4); Monocytes # (auto) 0.6 10 ^3/uL (0-1.3)
[2024-08-18 10:42] LABS: Eosinophils % (auto) 1.7 % (0.0-7.0); Hematocrit 42.2 % (41.0-53.0); Hemoglobin 13.6 g/dL (13.5-17.5); Lymphocytes % (auto) 20.6 % (10.0-50.0); Mean Corpuscular Hemoglobin 26.7 pg (28.0-32.0); Mean Corpuscular Hgb Conc. 32.1 g/dL (32.0-36.0); Monocytes % (auto) 9.4 % (0.0-12.0); Neutrophils # (auto) 4.3 10 ^3/uL (1.6-8.6); Neutrophils % (auto) 68.1 % (37.0-80.0); Platelet Count (auto) 158 10^3/uL (140-450); Red Blood Cells 5.08 10^6/uL (4.5-5.90); Red Cell Distribution Width 18.8 % (11.8-14.3); White Blood Cell 6.3 10^3/uL (4.4-10.8)
[2024-08-18 11:12] LABS: Alanine Aminotransferase 19 U/L (7-40); Albumin 3.7 g/dL (3.2-4.8); Alkaline Phosphatase 96 U/L (46-116); Anion Gap 8 (5-15); Aspartate Aminotransferase 21 U/L (13-40); Calcium 9.4 mg/dL (8.7-10.4); Carbon Dioxide 28 mmol/L (20-31); Chloride 99 mmol/L (98-107); Potassium 4.2 mmol/L (3.5-5.1)
[2024-08-18 11:13] LABS: Bilirubin, Total 0.9 mg/dL (0.2-1.0); Blood Urea Nitrogen 42 mg/dL (9-23); Glucose 188 mg/dL (74-106); Sodium 135 mmol/L (136-145); Total Protein 6.2 g/dL (5.7-8.2)
[2024-08-18 12:08] LABS: Urine WBC None Seen /hpf (0 - 3)
[2024-08-18 12:22] LABS: Urine Bacteria FEW /hpf (None Seen); Urine Blood Negative /uL (Negative); Urine Clarity Clear (Clear); Urine Color Colorless (Yellow); Urine Protein, UAD Negative (Negative); Urine Specific Gravity 1.007 (1.001-1.035); Urine Squamous Epithelial Cell None Seen /hpf (<5); Urine Urobilinogen Normal (Negative)
[2024-08-18 12:26] LABS: Creatinine, Urine 15.47 mg/dL (30.0-125.0)
[2024-08-18 12:30] LABS: Protein, Urine < 6.0 mg/dL (1-14); Urine Protein/Creatinine Ratio < 0.39
--- NOTE | 2024-08-18 13:55 | DVHPN2 ---
Subjective 08/18 update patient is improved significantly. No leg edema, but there is some rales in lower lobes bilaterally. Shortness of breadth improving RIZZO improving. Echo done showing FF HFrEF, cardiology following and 1 euvolemia before they can decide if patient needs LHC. 08/17 update- Patient doing well, lungs clear, legs improving. echo today and cardiology continues to follow. on tele. 08/16 update- Patient doing well, still gets short of breath,. Legs with significant swelling. Minimal rales. Cardiology following and consulted. Continuing diuresis, echo tomorrow. Continue telemetry. Reviewed: H&P Changes from previous H/P or p: No Changes General: Per HPI Objective Vitals Vital Signs Date Time Temp Pulse Resp B/P (MAP) Pulse Ox O2 Delivery O2 Flow Rate FiO2 08/18/24 09:48 80 129/71 08/18/24 09:00 97.9 20 87 97.9 08/17/24 20:00 Room Air* 0 21 Intake/Output Intake and Output 08/18/24 07:00 Intake Total 910 ml Balance 910 ml Intake Oral 860 ml IV Total 50 ml # Voids 2 Exam GEN: Healthy appearing, well-developed, NAD. HEENT: NC/AT; MMM. CV: RRR, no m/r/g. LUNGS: Bibasilar rales ABD: Soft, NT/ND, NBS, no masses or organomegaly. EXT: Bilateral pitting edema 1+ up to shins. NEURO: Ambulating with no limitations. No focal deficits. Medications Current Medications Medications Dose Ordered Sig/Luis Armando Route Start Time Stop Time Status Last Admin Dose Admin Aspirin 81 mg DAILY PO 08/16/24 10:00 08/18/24 09:36 81 MG Acetaminophen/ Hydrocodone Bitart 1 tab Q4HP PRN PO 08/16/24 02:00 Ondansetron HCl 4 mg Q4HP PRN IV 08/16/24 02:00 Docusate Sodium 100 mg BIDPRN PRN PO 08/16/24 02:00 Acetaminophen 650 mg Q6HP PRN PO 08/16/24 02:00 Morphine Sulfate 2 mg Q4HPRN PRN IV 08/16/24 02:00 Hydralazine HCl 10 mg Q6HP PRN IV 08/16/24 02:30 Diagnostic Test (Pha) 1 strip ACHS 08/16/24 07:00 08/18/24 11:18 1 STRIP Insulin Human Regular ACHS SC 08/16/24 07:00 08/17/24 22:34 2 UNITS Dextrose 50 ml UD PRN IV 08/16/24 02:30 Sodium Chloride 10 ml Q8HR IV 08/16/24 06:00 08/18/24 05:54 10 ML Nitroglycerin 0.4 mg Q5MINP PRN SL 08/16/24 02:30 Morphine Sulfate 2 mg Q30M PRN IV 08/16/24 02:30 Ceftriaxone Sodium 50 ml @ 100 mls/hr DAILY@09 IV 08/17/24 09:00 08/18/24 09:35 100 MLS/HR Metoprolol Tartrate 25 mg BID PO 08/16/24 10:00 08/18/24 09:48 25 MG Hydralazine HCl 10 mg Q6HP PRN IV 08/16/24 10:00 Empaglifozin 10 mg DAILY PO 08/18/24 10:00 08/18/24 09:36 10 MG Furosemide 20 mg BIDD IV 08/17/24 18:00 08/18/24 05:54 20 MG Atorvastatin Calcium 40 mg HS PO 08/18/24 22:00 Hydralazine HCl 25 mg Q8HR PO 08/18/24 14:00 Laboratory Results Laboratory Tests 08/18/24 10:03 Chemistry Test 08/18/24 10:03 Albumin 3.7 g/dL (3.2-4.8) Calcium Level 9.4 mg/dL (8.7-10.4) Total Protein 6.2 g/dL (5.7-8.2) LFT Test 08/18/24 10:03 Alanine Aminotransferase (ALT) 19 U/L (7-40) Alkaline Phosphatase 96 U/L (46-116) Aspartate Amino Transferase (AST) 21 U/L (13-40) Total Bilirubin 0.9 mg/dL (0.2-1.0) Urinalysis Test 08/18/24 11:31 Urine Color Colorless (Yellow) Urine Clarity Clear (Clear) Urine pH 7.0 (5.0-9.0) Urine Specific [place] 1.007 (1.001-1.035) Urine Protein Negative (Negative) Urine Ketones Negative (Negative) Urine Blood Negative /uL (Negative) Urine Nitrite Negative (Negative) Urine Bilirubin Negative (Negative) Urine Urobilinogen Normal mg/dL (Negative) Urine Leukocyte Esterase Negative /uL (Negative) Urine RBC <1 /hpf (0 - 3) Urine WBC None seen /hpf (0 - 3) Urine Squamous Epithelial Cells None seen /hpf (<5) Urine Bacteria Few /hpf (None Seen) H Urine Creatinine 15.47 mg/dL (30.0-125.0) L Urine Protein/Creatinine Ratio < 0.39 Urine Glucose Normal mg/dL (Normal) Urine Total Protein < 6.0 mg/dL (1-14) Labs and/or images reviewed: Labs reviewed by me, Image(s) reviewed by me Assessment/Plan Assessment/Plan 08/18 update patient is improved significantly. No leg edema, but there is some rales in lower lobes bilaterally. Shortness of breadth improving RIZZO improving. Echo done showing FF HFrEF, cardiology following and 1 euvolemia before they can decide if patient needs C. # Acute on chronic congestive heart failure, diastolic and systolic, newly diagnosed # bilateral pitting edema # type 2 NSTEMI - patient presenting with chest pain shortness of breath dyspnea on exertion, orthopnea PND. NYHA worsening 2-3 - on admit DVT ultrasound negative for any DVT bilateral -BNP elevated-CXR showing possible pulmonary vascular congestion was mostly normal x-ray. -on exam patient has minimal bibasilar rales, but significant pitting edema 3+ up to upper shins. - echo 08/17 - EF less than 20% with severely dilated left ventricle and severe global hypokinesis. - differential includes acute on chronic CHF exacerbation but could also be chronic venous insufficiency, DVT unlikely with a rule out. --cardiology consulted, continue IV diuresis Lasix 20 b.i.d.. -started on beta-kimberly. start GDMT as telra;cori (renal tox meds held, robbi arb arni, mra)- currently only on beta-kimberly and SGLT2 inhibitor -continue diuresis, possible LAC inpatient once euvolemic. As per plan of cardiology # left weber anterior wound, healing well. Likely venous stasis ulcer-we will get consulted keep dry # JAMAR, possible CKD-nephrology consulted. Diet cardiac DVT prophylaxis Lovenox subQ GI prophylaxis tolerating diet Med tele Full code Plan discussed with: Patient Date of Service: Aug 18, 2024 Billing Provider: DAVID ARORA MD Common Visit Codes: [id number] INP/OBS CARE(HIGH) DAVID ARORA MD Aug 18, 2024 13:55
[2024-08-18] MEDS: hydrALAZINE HCL 25 MG TAB PO SCH (15:15)
--- NOTE | 2024-08-18 16:29 | DVHPN2 ---
Consult Progress Note Date Seen: Aug 18, 2024 Subjective Review of Systems: CVS:Normal, RESPIRATORY:Normal, NEURO:Normal Other Systems: Denies any further cardiac symptoms Objective vital signs Vital Sign Date Time Temp Pulse Resp B/P (MAP) Pulse Ox O2 Delivery O2 Flow Rate FiO2 08/18/24 15:15 125/75 08/18/24 13:00 98.2 77 20 94 98.2 08/17/24 20:00 Room Air* 0 21 Total Intake and Output 08/17/24 08/17/24 08/18/24 15:00 23:00 07:00 Intake Total 50 ml 260 ml 600 ml Balance 50 ml 260 ml 600 ml medications Current Medications Medications Dose Ordered Sig/Luis Armando Route Start Time Stop Time Status Last Admin Dose Admin Aspirin 81 mg DAILY PO 08/16/24 10:00 08/18/24 09:36 81 MG Acetaminophen/ Hydrocodone Bitart 1 tab Q4HP PRN PO 08/16/24 02:00 Ondansetron HCl 4 mg Q4HP PRN IV 08/16/24 02:00 Docusate Sodium 100 mg BIDPRN PRN PO 08/16/24 02:00 Acetaminophen 650 mg Q6HP PRN PO 08/16/24 02:00 Morphine Sulfate 2 mg Q4HPRN PRN IV 08/16/24 02:00 Hydralazine HCl 10 mg Q6HP PRN IV 08/16/24 02:30 Diagnostic Test (Pha) 1 strip ACHS 08/16/24 07:00 08/18/24 11:18 1 STRIP Insulin Human Regular ACHS SC 08/16/24 07:00 08/17/24 22:34 2 UNITS Dextrose 50 ml UD PRN IV 08/16/24 02:30 Sodium Chloride 10 ml Q8HR IV 08/16/24 06:00 08/18/24 14:00 10 ML Nitroglycerin 0.4 mg Q5MINP PRN SL 08/16/24 02:30 Morphine Sulfate 2 mg Q30M PRN IV 08/16/24 02:30 Ceftriaxone Sodium 50 ml @ 100 mls/hr DAILY@09 IV 08/17/24 09:00 08/18/24 09:35 100 MLS/HR Metoprolol Tartrate 25 mg BID PO 08/16/24 10:00 08/18/24 09:48 25 MG Hydralazine HCl 10 mg Q6HP PRN IV 08/16/24 10:00 Empaglifozin 10 mg DAILY PO 08/18/24 10:00 08/18/24 09:36 10 MG Furosemide 20 mg BIDD IV 08/17/24 18:00 08/18/24 05:54 20 MG Atorvastatin Calcium 40 mg HS PO 08/18/24 22:00 Hydralazine HCl 25 mg Q8HR PO 08/18/24 14:00 08/18/24 15:15 25 MG Examination: GENERAL:Normal, LUNGS:Normal, CVS:Abnormal (BLE edema +, improving), NEURO:Normal laboratory and microbiology Laboratory Tests 08/18/24 10:03 Test 08/18/24 10:03 Range/Units Serum Glucose 188 H 74-106 mg/dL Problem List/Assessment/Plan Problem List/Assessment/Plan Acute on chronic decompensated HFrEF, NYHA Class III, newly diagnosed Rule out coronary artery disease NSTEMI, likely type 2 secondary to above Right bundle branch block Suspected cellulitis to L[place]fe-fxfuyjp-aribfhwtg diabetes mellitus Hypertension Likely JAMAR on CKD Obesity Plan/Recommendation (Dr. Kruse) The patient was seen and examined at bedside with . Transthoracic echocardiogram confirms EF < 20% with severely dilated left ventricle and severe global hypokinesis. Continue GDMT for CHF as renal function permits, creatinine today 1.91 (Hold FELICE/ARB/ARNI, SGLT2i, and mineral corticoid receptor agonist). Preload and afterload reduction as tolerated. Continue daily weights, maintaining fluid restriction, and strict I&Os. Cardiac surveillance, monitor for any ECG changes. We will consider possible ischemic workup after patient properly diuresed and renal function improves. Continue Nephrology recommendations. Thank you for allowing us to care for this patient. Please call with any questions or concerns. This medical document was created using an electronic medical record system with voice recognition software and computerized dictation system. Although this document has been carefully reviewed, there might still be some phonetic and typographical errors. Occasional wrong-word or ``sound-alike substitutions may have occurred due to the inherent limitations of voice recognition software. These areas are purely typographical due to imperfections of the software programs and do not reflect any compromise in the patient's medical care. Please read the chart carefully and recognize, using context, where these substitutions have occurred. Plan discussed with: Patient, Other Dietary Evaluation Review Comments: 1. Continue current diet 2. Consider adding Alberto Bid (180kcal, 5 gpro) if wound worsens Expected Outcomes/Goals: 1. Pt will consume >75% of needs within 3-5 days Date of Service: Aug 18, 2024 Billing Provider: DINESH KRUSE MD Cardiology Common Codes: [id number] [facility] ALON AGUILAR [facility] Aug 18, 2024 16:29
[2024-08-18] MEDS: ATORVASTATIN 20 MG TAB PO SCH (21:30)
[2024-08-19] VITALS (8 sets, daily range): BP systolic 96–126; BP diastolic 60–86; PULSE 64–84; RESP 15–19; TEMP 97.7–99; O2SAT 92–98
[2024-08-19 07:40] LABS: Alanine Aminotransferase 19 U/L (7-40); Alkaline Phosphatase 98 U/L (46-116); Anion Gap 8 (5-15); BUN/Creatinine Ratio 20.1 (10.0-20.0); Carbon Dioxide 29 mmol/L (20-31); Chloride 100 mmol/L (98-107); Potassium 4.5 mmol/L (3.5-5.1); Sodium 137 mmol/L (136-145)
[2024-08-19 07:41] LABS: Albumin 3.9 g/dL (3.2-4.8); Aspartate Aminotransferase 21 U/L (13-40); Total Protein 6.7 g/dL (5.7-8.2)
[2024-08-19 07:50] LABS: Blood Urea Nitrogen 37 mg/dL (9-23); Glucose 113 mg/dL (74-106)
[2024-08-19 08:18] LABS: Basophils # (auto) 0 10 ^3/uL (0-0.2); Basophils % (auto) 0.5 % (0.0-2.0); Eosinophils # (auto) 0.1 10 ^3/uL (0-0.8); Eosinophils % (auto) 1.9 % (0.0-7.0); Lymphocytes # (auto) 1.4 10 ^3/uL (0.4-5.4); Lymphocytes % (auto) 21.2 % (10.0-50.0); Mean Corpuscular Hemoglobin 26.6 pg (28.0-32.0); Mean Corpuscular Hgb Conc. 31.9 g/dL (32.0-36.0); Mean Corpuscular Volume 83.4 fL (80.0-100.0); Monocytes # (auto) 0.7 10 ^3/uL (0-1.3); Monocytes % (auto) 10.9 % (0.0-12.0); Neutrophils # (auto) 4.5 10 ^3/uL (1.6-8.6); Neutrophils % (auto) 65.5 % (37.0-80.0); Nucleated Red Blood Cells % 0.2 %; Platelet Count (auto) 180 10^3/uL (140-450); Red Blood Cells 5.64 10^6/uL (4.5-5.90); Red Cell Distribution Width 18.6 % (11.8-14.3); White Blood Cell 6.8 10^3/uL (4.4-10.8)
[2024-08-19] MEDS: ISOSORBIDE MONONITRATE ER 60 MG TAB PO SCH (10:14)
[2024-08-19] MEDS: FUROSEMIDE 20 MG/2 ML VIAL IV ONE (10:32)
--- NOTE | 2024-08-19 13:50 | ECG ---
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
--- NOTE | 2024-08-19 14:14 | ECG ---
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
--- NOTE | 2024-08-19 14:34 | DVHPN2 ---
Consult Progress Note Date Seen: Aug 19, 2024 Subjective Review of Systems: CVS:Normal, RESPIRATORY:Normal, NEURO:Normal Objective vital signs Vital Sign Date Time Temp Pulse Resp B/P (MAP) Pulse Ox O2 Delivery O2 Flow Rate FiO2 08/19/24 14:15 101/60 08/19/24 13:00 99.0 64 16 98 99.0 08/18/24 20:00 Room Air* 0 21 Total Intake and Output 08/18/24 08/18/24 08/19/24 15:00 23:00 07:00 Intake Total 50 ml 450 ml 300 ml Output Total 400 ml Balance 50 ml 450 ml -100 ml medications Current Medications Medications Dose Ordered Sig/Luis Armando Route Start Time Stop Time Status Last Admin Dose Admin Aspirin 81 mg DAILY PO 08/16/24 10:00 08/19/24 10:14 81 MG Acetaminophen/ Hydrocodone Bitart 1 tab Q4HP PRN PO 08/16/24 02:00 Ondansetron HCl 4 mg Q4HP PRN IV 08/16/24 02:00 Docusate Sodium 100 mg BIDPRN PRN PO 08/16/24 02:00 Acetaminophen 650 mg Q6HP PRN PO 08/16/24 02:00 Morphine Sulfate 2 mg Q4HPRN PRN IV 08/16/24 02:00 Hydralazine HCl 10 mg Q6HP PRN IV 08/16/24 02:30 Diagnostic Test (Pha) 1 strip ACHS 08/16/24 07:00 08/19/24 11:30 1 STRIP Insulin Human Regular ACHS SC 08/16/24 07:00 08/17/24 22:34 2 UNITS Dextrose 50 ml UD PRN IV 08/16/24 02:30 Sodium Chloride 10 ml Q8HR IV 08/16/24 06:00 08/19/24 14:09 10 ML Nitroglycerin 0.4 mg Q5MINP PRN SL 08/16/24 02:30 Morphine Sulfate 2 mg Q30M PRN IV 08/16/24 02:30 Ceftriaxone Sodium 50 ml @ 100 mls/hr DAILY@09 IV 08/17/24 09:00 08/19/24 10:12 100 MLS/HR Metoprolol Tartrate 25 mg BID PO 08/16/24 10:00 08/19/24 10:32 25 MG Atorvastatin Calcium 40 mg HS PO 08/18/24 22:00 08/18/24 21:30 40 MG Hydralazine HCl 25 mg Q8HR PO 08/18/24 14:00 08/19/24 14:15 25 MG Isosorbide Mononitrate 30 mg DAILY PO 08/19/24 10:00 08/19/24 10:14 30 MG Furosemide 40 mg BIDD IV 08/19/24 18:00 Examination: LUNGS:Normal, CVS:Normal (Pedal edema resolved), NEURO:Normal laboratory and microbiology Laboratory Tests 08/19/24 06:29 Test 08/19/24 06:29 Range/Units Serum Glucose 113 H 74-106 mg/dL Problem List/Assessment/Plan Problem List/Assessment/Plan Acute on chronic decompensated HFrEF, NYHA Class III, newly diagnosed Rule out coronary artery disease NSTEMI, likely type 2 secondary to above Right bundle branch block Suspected cellulitis to LLE Xuw-irrejue-woirdcztl diabetes mellitus Hypertension Likely JAMAR on CKD Obesity Plan/Recommendation (Dr. Stanton) The patient was seen and examined at bedside with . Transthoracic echocardiogram revealed EF < 20% with severely dilated left ventricle and severe global hypokinesis. Continue GDMT for CHF as renal function permits, creatinine today 1.84 (Hold FELICE/ARB/ARNI, SGLT2i, and mineral corticoid receptor agonist). Continue preload and afterload reduction as tolerated. Continue daily weights, maintaining fluid restriction, and strict I&Os. Cardiac surveillance, monitor for any ECG changes. Scheduled for coronary angiogram with left cardiac catheterization on 08/21/2024. All risks and benefits of the procedure were discussed with the patient and sister at bedside and agrees to proceed with intervention. Risks discussed included ELIECER with Dr. Stanton aware of renal function and plan for use of minimal contrast. Monitor ECG changes and notify. Continue Nephrology recommendations. Thank you for allowing us to care for this patient. Please call with any questions or concerns. This medical document was created using an electronic medical record system with voice recognition software and computerized dictation system. Although this document has been carefully reviewed, there might still be some phonetic and typographical errors. Occasional wrong-word or ``sound-alike substitutions may have occurred due to the inherent limitations of voice recognition software. These areas are purely typographical due to imperfections of the software programs and do not reflect any compromise in the patient's medical care. Please read the chart carefully and recognize, using context, where these substitutions have occurred. Plan discussed with: Patient, Other Dietary Evaluation Review Comments: 1. Continue current diet 2. Consider adding Alberto Bid (180kcal, 5 gpro) if wound worsens Expected Outcomes/Goals: 1. Pt will consume >75% of needs within 3-5 days Date of Service: Aug 19, 2024 Billing Provider: MARYLOU STANTON MD Cardiology Common Codes: [id number] HOSP CARE(ALON Major [facility] Aug 19, 2024 14:34
[2024-08-19] MEDS: FUROSEMIDE 20 MG/2 ML VIAL IV SCH (17:49)
--- NOTE | 2024-08-19 20:02 | DVHPN2 ---
Subjective 08/19 patient feeling improved, no chest pain. Cardiology following with plan for LHC in 2 days. We will continue to keep patient euvolemic. 08/18 update patient is improved significantly. No leg edema, but there is some rales in lower lobes bilaterally. Shortness of breadth improving RIZZO improving. Echo done showing FF HFrEF, cardiology following and 1 euvolemia before they can decide if patient needs LHC. 08/17 update- Patient doing well, lungs clear, legs improving. echo today and cardiology continues to follow. on tele. 08/16 update- Patient doing well, still gets short of breath,. Legs with significant swelling. Minimal rales. Cardiology following and consulted. Continuing diuresis, echo tomorrow. Continue telemetry. Reviewed: H&P Changes from previous H/P or p: No Changes General: Per HPI Objective Vitals Vital Signs Date Time Temp Pulse Resp B/P (MAP) Pulse Ox O2 Delivery O2 Flow Rate FiO2 08/19/24 17:49 96/66 08/19/24 17:00 98.0 67 15 92 98.0 08/19/24 08:00 Room Air* 0 21 Intake/Output Intake and Output 08/19/24 07:00 Intake Total 800 ml Output Total 400 ml Balance 400 ml Intake Oral 750 ml IV Total 50 ml Output Urine Total 400 ml # Voids 1 Exam GEN: Healthy appearing, well-developed, NAD. HEENT: NC/AT; MMM. CV: RRR, no m/r/g. LUNGS: Bibasilar rales ABD: Soft, NT/ND, NBS, no masses or organomegaly. EXT: Bilateral pitting edema traice-1+ up to shins. NEURO: Ambulating with no limitations. No focal deficits. Medications Current Medications Medications Dose Ordered Sig/Luis Armando Route Start Time Stop Time Status Last Admin Dose Admin Aspirin 81 mg DAILY PO 08/16/24 10:00 08/19/24 10:14 81 MG Acetaminophen/ Hydrocodone Bitart 1 tab Q4HP PRN PO 08/16/24 02:00 Ondansetron HCl 4 mg Q4HP PRN IV 08/16/24 02:00 Docusate Sodium 100 mg BIDPRN PRN PO 08/16/24 02:00 Acetaminophen 650 mg Q6HP PRN PO 08/16/24 02:00 Morphine Sulfate 2 mg Q4HPRN PRN IV 08/16/24 02:00 Hydralazine HCl 10 mg Q6HP PRN IV 08/16/24 02:30 Diagnostic Test (Pha) 1 strip ACHS 08/16/24 07:00 08/19/24 17:00 1 STRIP Insulin Human Regular ACHS SC 08/16/24 07:00 08/17/24 22:34 2 UNITS Dextrose 50 ml UD PRN IV 08/16/24 02:30 Sodium Chloride 10 ml Q8HR IV 08/16/24 06:00 08/19/24 14:09 10 ML Nitroglycerin 0.4 mg Q5MINP PRN SL 08/16/24 02:30 Morphine Sulfate 2 mg Q30M PRN IV 08/16/24 02:30 Ceftriaxone Sodium 50 ml @ 100 mls/hr DAILY@09 IV 08/17/24 09:00 08/19/24 10:12 100 MLS/HR Metoprolol Tartrate 25 mg BID PO 08/16/24 10:00 08/19/24 10:32 25 MG Atorvastatin Calcium 40 mg HS PO 08/18/24 22:00 08/18/24 21:30 40 MG Hydralazine HCl 25 mg Q8HR PO 08/18/24 14:00 08/19/24 14:15 25 MG Isosorbide Mononitrate 30 mg DAILY PO 08/19/24 10:00 08/19/24 10:14 30 MG Furosemide 40 mg BIDD IV 08/19/24 18:00 Laboratory Results Laboratory Tests 08/19/24 06:29 Chemistry Test 08/19/24 06:29 Albumin 3.9 g/dL (3.2-4.8) Calcium Level 10.0 mg/dL (8.7-10.4) Total Protein 6.7 g/dL (5.7-8.2) Cardiac Markers Test 08/19/24 06:29 B-Type Natriuretic Peptide 1572.64 pg/mL (0-100) LFT Test 08/19/24 06:29 Alanine Aminotransferase (ALT) 19 U/L (7-40) Alkaline Phosphatase 98 U/L (46-116) Aspartate Amino Transferase (AST) 21 U/L (13-40) Total Bilirubin 1.0 mg/dL (0.2-1.0) Urinalysis Test 08/18/24 11:31 Urine Color Colorless (Yellow) Urine Clarity Clear (Clear) Urine pH 7.0 (5.0-9.0) Urine Specific [place] 1.007 (1.001-1.035) Urine Protein Negative (Negative) Urine Ketones Negative (Negative) Urine Blood Negative /uL (Negative) Urine Nitrite Negative (Negative) Urine Bilirubin Negative (Negative) Urine Urobilinogen Normal mg/dL (Negative) Urine Leukocyte Esterase Negative /uL (Negative) Urine RBC <1 /hpf (0 - 3) Urine WBC None seen /hpf (0 - 3) Urine Squamous Epithelial Cells None seen /hpf (<5) Urine Bacteria Few /hpf (None Seen) H Urine Creatinine 15.47 mg/dL (30.0-125.0) L Urine Protein/Creatinine Ratio < 0.39 Urine Glucose Normal mg/dL (Normal) Urine Total Protein < 6.0 mg/dL (1-14) Labs and/or images reviewed: Labs reviewed by me, Image(s) reviewed by me Assessment/Plan Assessment/Plan 08/19 patient feeling improved, no chest pain. Cardiology following with plan for LHC in 2 days. We will continue to keep patient euvolemic. # Acute on chronic congestive heart failure, diastolic and systolic, newly diagnosed # HFrEF # bilateral pitting edema # type 2 NSTEMI - patient presenting with chest pain shortness of breath dyspnea on exertion, orthopnea PND. NYHA worsening 2-3 - on admit DVT ultrasound negative for any DVT bilateral -BNP elevated-CXR showing possible pulmonary vascular congestion was mostly normal x-ray. -on exam patient has minimal bibasilar rales, but significant pitting edema 3+ up to upper shins. - echo 08/17 - EF less than 20% with severely dilated left ventricle and severe global hypokinesis. - differential includes acute on chronic CHF exacerbation but could also be chronic venous insufficiency, DVT unlikely with a rule out. --cardiology consulted, continue IV diuresis Lasix 10 qday -started on beta-kimberly. start GDMT as telra;cori (renal tox meds held, robbi arb arni, mra)- currently only on beta-kimberly and SGLT2 inhibitor -continue diuresis, LHC monday. As per plan of cardiology # left weber anterior wound, healing well. Likely venous stasis ulcer-we will get consulted keep dry # JAMAR, possible CKD-nephrology consulted. Diet cardiac DVT prophylaxis Lovenox subQ GI prophylaxis tolerating diet Med tele Full code Plan discussed with: Patient My Orders Orders - DAVID ARORA MD Procedure Category Date Status Time Furosemide Injection PHA 08/19/24 In Process (Lasix Injection) 18:00 Furosemide Injection PHA 08/20/24 Verified (Lasix Injection) 10:00 Date of Service: Aug 19, 2024 Billing Provider: DAVID ARORA MD Common Visit Codes: [id number] INP/OBS CARE(HIGH) DAVID ARORA MD Aug 19, 2024 20:01
[2024-08-20] VITALS (8 sets, daily range): BP systolic 103–115; BP diastolic 59–71; PULSE 71–82; RESP 15–20; TEMP 97.6–98.1; O2SAT 95–98
[2024-08-20 07:29] LABS: Basophils # (auto) 0 10 ^3/uL (0-0.2); Basophils % (auto) 0.3 % (0.0-2.0); Eosinophils # (auto) 0.1 10 ^3/uL (0-0.8); Lymphocytes # (auto) 1.5 10 ^3/uL (0.4-5.4); Lymphocytes % (auto) 22.3 % (10.0-50.0); Mean Corpuscular Hemoglobin 26.5 pg (28.0-32.0); Mean Corpuscular Volume 82.7 fL (80.0-100.0); Monocytes # (auto) 0.8 10 ^3/uL (0-1.3); Monocytes % (auto) 12.4 % (0.0-12.0); Neutrophils # (auto) 4.3 10 ^3/uL (1.6-8.6); Nucleated Red Blood Cells % 0.1 %; Platelet Count (auto) 188 10^3/uL (140-450); Red Blood Cells 5.69 10^6/uL (4.5-5.90); Red Cell Distribution Width 18.5 % (11.8-14.3); White Blood Cell 6.8 10^3/uL (4.4-10.8)
[2024-08-20 08:12] LABS: Alanine Aminotransferase 19 U/L (7-40); Albumin 3.9 g/dL (3.2-4.8); Alkaline Phosphatase 98 U/L (46-116); Anion Gap 11 (5-15); Aspartate Aminotransferase 25 U/L (13-40); BUN/Creatinine Ratio 22.9 (10.0-20.0); Calcium 9.7 mg/dL (8.7-10.4); Carbon Dioxide 25 mmol/L (20-31); Chloride 99 mmol/L (98-107); Glucose 100 mg/dL (74-106); Potassium 4.3 mmol/L (3.5-5.1); Total Protein 6.5 g/dL (5.7-8.2)
[2024-08-20 08:22] LABS: Blood Urea Nitrogen 40 mg/dL (9-23); Sodium 135 mmol/L (136-145)
--- NOTE | 2024-08-20 11:03 | DVHPN2 ---
Consult Progress Note Date Seen: Aug 20, 2024 Subjective Review of Systems: CVS:Normal, RESPIRATORY:Normal, NEURO:Normal Other Systems: Denies any cardiac symptoms Objective vital signs Vital Sign Date Time Temp Pulse Resp B/P (MAP) Pulse Ox O2 Delivery O2 Flow Rate FiO2 08/20/24 09:00 98.1 74 15 109/71 (84) 95 98.1 08/19/24 20:00 Room Air* 0 21 Total Intake and Output 08/19/24 08/19/24 08/20/24 15:00 23:00 07:00 Intake Total 50 ml 850 ml 1600 ml Output Total 3250 ml 5425 ml Balance 50 ml -2400 ml -3825 ml medications Current Medications Medications Dose Ordered Sig/Luis Armando Route Start Time Stop Time Status Last Admin Dose Admin Aspirin 81 mg DAILY PO 08/16/24 10:00 08/19/24 10:14 81 MG Acetaminophen/ Hydrocodone Bitart 1 tab Q4HP PRN PO 08/16/24 02:00 Ondansetron HCl 4 mg Q4HP PRN IV 08/16/24 02:00 Docusate Sodium 100 mg BIDPRN PRN PO 08/16/24 02:00 Acetaminophen 650 mg Q6HP PRN PO 08/16/24 02:00 Morphine Sulfate 2 mg Q4HPRN PRN IV 08/16/24 02:00 Hydralazine HCl 10 mg Q6HP PRN IV 08/16/24 02:30 Diagnostic Test (Pha) 1 strip ACHS 08/16/24 07:00 08/20/24 06:08 1 STRIP Insulin Human Regular ACHS SC 08/16/24 07:00 08/17/24 22:34 2 UNITS Dextrose 50 ml UD PRN IV 08/16/24 02:30 Sodium Chloride 10 ml Q8HR IV 08/16/24 06:00 08/20/24 05:38 10 ML Nitroglycerin 0.4 mg Q5MINP PRN SL 08/16/24 02:30 Morphine Sulfate 2 mg Q30M PRN IV 08/16/24 02:30 Ceftriaxone Sodium 50 ml @ 100 mls/hr DAILY@09 IV 08/17/24 09:00 08/19/24 10:12 100 MLS/HR Metoprolol Tartrate 25 mg BID PO 08/16/24 10:00 08/19/24 21:42 25 MG Atorvastatin Calcium 40 mg HS PO 08/18/24 22:00 08/19/24 21:40 40 MG Hydralazine HCl 25 mg Q8HR PO 08/18/24 14:00 08/20/24 05:38 25 MG Isosorbide Mononitrate 30 mg DAILY PO 08/19/24 10:00 08/19/24 10:14 30 MG Furosemide 10 mg DAILY IV 08/20/24 10:00 Examination: LUNGS:Normal, CVS:Normal (Pedal edema resolved), NEURO:Normal laboratory and microbiology Laboratory Tests 08/20/24 06:22 Test 08/20/24 06:22 Range/Units Serum Glucose 100 74-106 mg/dL Problem List/Assessment/Plan Problem List/Assessment/Plan Acute on chronic decompensated HFrEF, NYHA Class III, newly diagnosed Rule out coronary artery disease NSTEMI, likely type 2 secondary to above Right bundle branch block Suspected cellulitis to LLE Npa-vwazidb-lqkbwgexn diabetes mellitus Hypertension Likely JAMAR on CKD Obesity Plan/Recommendation (Dr. Zamora) The patient was seen and examined at bedside with . Transthoracic echocardiogram revealed EF < 20% with severely dilated left ventricle and severe global hypokinesis. Continue GDMT for CHF as renal function permits, creatinine today 1.75 (Hold FELICE/ARB/ARNI, SGLT2i, and mineral corticoid receptor agonist). Continue preload and afterload reduction as tolerated. Continue daily weights, maintaining fluid restriction, and strict I&Os. Cardiac surveillance, monitor for any ECG changes. Scheduled for coronary angiogram with left cardiac catheterization on 08/21/2024. Patient is aware of risk for ELIECER. Dr. Huang knowledgeable of renal function and plan for use of minimal contrast. Monitor ECG changes and notify. Continue Nephrology recommendations. Thank you for allowing us to care for this patient. Please call with any questions or concerns. This medical document was created using an electronic medical record system with voice recognition software and computerized dictation system. Although this document has been carefully reviewed, there might still be some phonetic and typographical errors. Occasional wrong-word or ``sound-alike substitutions may have occurred due to the inherent limitations of voice recognition software. These areas are purely typographical due to imperfections of the software programs and do not reflect any compromise in the patient's medical care. Please read the chart carefully and recognize, using context, where these substitutions have occurred. Plan discussed with: Patient, Other Dietary Evaluation Review Comments: 1. Continue current diet 2. Consider adding Alberto Bid (180kcal, 5 gpro) if wound worsens Expected Outcomes/Goals: 1. Pt will consume >75% of needs within 3-5 days Date of Service: Aug 20, 2024 Billing Provider: VIOLA ZAMORA Sr., MD Cardiology Common Codes: [id number] HOSP CARE(ALON Major [facility] Aug 20, 2024 11:03
[2024-08-20] MEDS: FUROSEMIDE 20 MG/2 ML VIAL IV SCH (11:34)
--- NOTE | 2024-08-20 12:19 | CONS ---
Pharmacy Clinical Information: CQM HF. Patient is new diagnosed with CHF and was started on metoprolol tartrate a short acting non-EBBB to optimize dosage and monitor the patient for side effects before switching to succinate. Once optimal dose is achieved and patient is stable, please consider switching to succinate. EDWIGE THOMAS PHARMACIST Aug 20, 2024 12:19
--- NOTE | 2024-08-20 16:25 | DVHPN2 ---
Progress Note Date Seen: Aug 20, 2024 Medical Necessity Reason Pt with a Central, PICC or Fol: No Subjective Patient reports: Other (No new complaints) Review of Systems: Deferred Objective vital signs Vital Sign Date Time Temp Pulse Resp B/P (MAP) Pulse Ox O2 Delivery O2 Flow Rate FiO2 08/20/24 14:24 111/67 08/20/24 13:00 97.6 77 16 95 97.6 08/20/24 08:00 Room Air* 0 21 Total Intake and Output 08/19/24 08/19/24 08/20/24 15:00 23:00 07:00 Intake Total 50 ml 850 ml 1600 ml Output Total 3250 ml 5425 ml Balance 50 ml -2400 ml -3825 ml medications Current Medications Medications Dose Ordered Sig/Luis Armando Route Start Time Stop Time Status Last Admin Dose Admin Aspirin 81 mg DAILY PO 08/16/24 10:00 08/20/24 11:34 81 MG Acetaminophen/ Hydrocodone Bitart 1 tab Q4HP PRN PO 08/16/24 02:00 Ondansetron HCl 4 mg Q4HP PRN IV 08/16/24 02:00 Docusate Sodium 100 mg BIDPRN PRN PO 08/16/24 02:00 Acetaminophen 650 mg Q6HP PRN PO 08/16/24 02:00 Morphine Sulfate 2 mg Q4HPRN PRN IV 08/16/24 02:00 Hydralazine HCl 10 mg Q6HP PRN IV 08/16/24 02:30 Diagnostic Test (Pha) 1 strip ACHS 08/16/24 07:00 08/20/24 11:30 1 STRIP Insulin Human Regular ACHS SC 08/16/24 07:00 08/17/24 22:34 2 UNITS Dextrose 50 ml UD PRN IV 08/16/24 02:30 Sodium Chloride 10 ml Q8HR IV 08/16/24 06:00 08/20/24 14:04 10 ML Nitroglycerin 0.4 mg Q5MINP PRN SL 08/16/24 02:30 Morphine Sulfate 2 mg Q30M PRN IV 08/16/24 02:30 Ceftriaxone Sodium 50 ml @ 100 mls/hr DAILY@09 IV 08/17/24 09:00 08/19/24 10:12 100 MLS/HR Metoprolol Tartrate 25 mg BID PO 08/16/24 10:00 1/7/25 11:35 25 MG Atorvastatin Calcium 40 mg HS PO 08/18/24 22:00 08/19/24 21:40 40 MG Hydralazine HCl 25 mg Q8HR PO 08/18/24 14:00 08/20/24 14:24 25 MG Isosorbide Mononitrate 30 mg DAILY PO 08/19/24 10:00 08/20/24 11:36 30 MG Furosemide 10 mg DAILY IV 08/20/24 10:00 08/20/24 11:34 10 MG laboratory and microbiology Laboratory Tests 08/20/24 06:22 Test 08/20/24 06:22 Range/Units Serum Glucose 100 74-106 mg/dL Problem List/Assessment/Plan Problem List/Assessment/Plan Acute kidney injury hemodynamically mediated Chronic kidney disease unspecified baseline unknown New onset decompensated systolic heart failure Hypertension Diabetes Recommendations Plan for cardiac catheterization noted Moderate risk for ELIECER We will follow closely post cardiac catheterization Hold diuretics before procedure Plan discussed with: Patient Dietary Evaluation Review Comments: 1. Continue current diet 2. Consider adding Alberto Bid (180kcal, 5 gpro) if wound worsens Expected Outcomes/Goals: 1. Pt will consume >75% of needs within 3-5 days MICHAEL JAIMES MD Aug 20, 2024 16:25
--- NOTE | 2024-08-20 19:55 | DVHPN2 ---
Subjective 08/20 - LHC tomorrow. patient remains euvolemic, w/o complains. 08/19 patient feeling improved, no chest pain. Cardiology following with plan for LHC in 2 days. We will continue to keep patient euvolemic. 08/18 update patient is improved significantly. No leg edema, but there is some rales in lower lobes bilaterally. Shortness of breadth improving RIZZO improving. Echo done showing FF HFrEF, cardiology following and 1 euvolemia before they can decide if patient needs LHC. 08/17 update- Patient doing well, lungs clear, legs improving. echo today and cardiology continues to follow. on tele. 08/16 update- Patient doing well, still gets short of breath,. Legs with significant swelling. Minimal rales. Cardiology following and consulted. Continuing diuresis, echo tomorrow. Continue telemetry. Reviewed: H&P Changes from previous H/P or p: No Changes General: Per HPI Objective Vitals Vital Signs Date Time Temp Pulse Resp B/P (MAP) Pulse Ox O2 Delivery O2 Flow Rate FiO2 08/20/24 17:00 97.6 79 17 115/70 (85) 96 97.6 08/20/24 08:00 Room Air* 0 21 Intake/Output Intake and Output 08/20/24 07:00 Intake Total 2500 ml Output Total 8675 ml Balance -6175 ml Intake Oral 2450 ml IV Total 50 ml Output Urine Total 8675 ml Exam GEN: Healthy appearing, well-developed, NAD. HEENT: NC/AT; MMM. CV: RRR, no m/r/g. LUNGS: Bibasilar rales ABD: Soft, NT/ND, NBS, no masses or organomegaly. EXT: Bilateral pitting edema traice-1+ up to shins. NEURO: Ambulating with no limitations. No focal deficits. Medications Current Medications Medications Dose Ordered Sig/Luis Armando Route Start Time Stop Time Status Last Admin Dose Admin Aspirin 81 mg DAILY PO 08/16/24 10:00 08/20/24 11:34 81 MG Acetaminophen/ Hydrocodone Bitart 1 tab Q4HP PRN PO 08/16/24 02:00 Ondansetron HCl 4 mg Q4HP PRN IV 08/16/24 02:00 Docusate Sodium 100 mg BIDPRN PRN PO 08/16/24 02:00 Acetaminophen 650 mg Q6HP PRN PO 08/16/24 02:00 Morphine Sulfate 2 mg Q4HPRN PRN IV 08/16/24 02:00 Hydralazine HCl 10 mg Q6HP PRN IV 08/16/24 02:30 Diagnostic Test (Pha) 1 strip ACHS 08/16/24 07:00 08/20/24 17:28 1 STRIP Insulin Human Regular ACHS SC 08/16/24 07:00 08/17/24 22:34 2 UNITS Dextrose 50 ml UD PRN IV 08/16/24 02:30 Sodium Chloride 10 ml Q8HR IV 08/16/24 06:00 08/20/24 14:04 10 ML Nitroglycerin 0.4 mg Q5MINP PRN SL 08/16/24 02:30 Morphine Sulfate 2 mg Q30M PRN IV 08/16/24 02:30 Ceftriaxone Sodium 50 ml @ 100 mls/hr DAILY@09 IV 08/17/24 09:00 08/19/24 10:12 100 MLS/HR Metoprolol Tartrate 25 mg BID PO 08/16/24 10:00 08/20/24 11:35 25 MG Atorvastatin Calcium 40 mg HS PO 08/18/24 22:00 08/19/24 21:40 40 MG Hydralazine HCl 25 mg Q8HR PO 08/18/24 14:00 08/20/24 14:24 25 MG Isosorbide Mononitrate 30 mg DAILY PO 08/19/24 10:00 08/20/24 11:36 30 MG Furosemide 10 mg DAILY IV 08/20/24 10:00 08/20/24 11:34 10 MG Laboratory Results Laboratory Tests 08/20/24 06:22 Chemistry Test 08/20/24 06:22 Albumin 3.9 g/dL (3.2-4.8) Calcium Level 9.7 mg/dL (8.7-10.4) Total Protein 6.5 g/dL (5.7-8.2) LFT Test 08/20/24 06:22 Alanine Aminotransferase (ALT) 19 U/L (7-40) Alkaline Phosphatase 98 U/L (46-116) Aspartate Amino Transferase (AST) 25 U/L (13-40) Total Bilirubin 1.0 mg/dL (0.2-1.0) Urinalysis Test 08/18/24 11:31 Urine Color Colorless (Yellow) Urine Clarity Clear (Clear) Urine pH 7.0 (5.0-9.0) Urine Specific [place] 1.007 (1.001-1.035) Urine Protein Negative (Negative) Urine Ketones Negative (Negative) Urine Blood Negative /uL (Negative) Urine Nitrite Negative (Negative) Urine Bilirubin Negative (Negative) Urine Urobilinogen Normal mg/dL (Negative) Urine Leukocyte Esterase Negative /uL (Negative) Urine RBC <1 /hpf (0 - 3) Urine WBC None seen /hpf (0 - 3) Urine Squamous Epithelial Cells None seen /hpf (<5) Urine Bacteria Few /hpf (None Seen) H Urine Creatinine 15.47 mg/dL (30.0-125.0) L Urine Protein/Creatinine Ratio < 0.39 Urine Glucose Normal mg/dL (Normal) Urine Total Protein < 6.0 mg/dL (1-14) Labs and/or images reviewed: Labs reviewed by me, Image(s) reviewed by me Assessment/Plan Assessment/Plan 08/20 - [facility] tomorrow. patient remains euvolemic, w/o complains. # Acute on chronic congestive heart failure, diastolic and systolic, newly diagnosed # HFrEF # bilateral pitting edema # type 2 NSTEMI - patient presenting with chest pain shortness of breath dyspnea on exertion, orthopnea PND. NYHA worsening 2-3 - on admit DVT ultrasound negative for any DVT bilateral -BNP elevated-CXR showing possible pulmonary vascular congestion was mostly normal x-ray. -on exam patient has minimal bibasilar rales, but significant pitting edema 3+ up to upper shins. - echo 08/17 - EF less than 20% with severely dilated left ventricle and severe global hypokinesis. - differential includes acute on chronic CHF exacerbation but could also be chronic venous insufficiency, DVT unlikely with a rule out. --cardiology consulted, continue IV diuresis Lasix 10 qday -started on beta-kimberly. start GDMT as telra;cori (renal tox meds held, robbi arb arni, mra)- currently only on beta-kimberly and SGLT2 inhibitor -continue diuresis, [facility] monday 08/21 . As per plan of cardiology # left weber anterior wound, healing well. Likely venous stasis ulcer-we will get consulted keep dry # JAMAR, possible CKD-nephrology consulted. Diet cardiac . npo mn DVT prophylaxis Lovenox subQ GI prophylaxis tolerating diet Med tele Full code Plan discussed with: Patient My Orders Orders - DAVID ARORA MD Procedure Category Date Status Time Furosemide Injection PHA 08/20/24 In Process (Lasix Injection) 10:00 Date of Service: Aug 20, 2024 Billing Provider: DAVID ARORA MD Common Visit Codes: [id number] INP/OBS CARE(HIGH) DAVID ARORA MD Aug 20, 2024 19:55
[2024-08-21] VITALS (12 sets, daily range): BP systolic 92–118; BP diastolic 55–68; PULSE 68–97; RESP 12–19; TEMP 97.5–98.1; O2SAT 93–100
[2024-08-21 06:12] LABS: Basophils # (auto) 0 10 ^3/uL (0-0.2); Eosinophils # (auto) 0.1 10 ^3/uL (0-0.8); Nucleated Red Blood Cells % 0.1 %; Red Cell Distribution Width 18.3 % (11.8-14.3)
[2024-08-21 06:14] LABS: Basophils % (auto) 0.2 % (0.0-2.0); Eosinophils % (auto) 1.5 % (0.0-7.0); Hematocrit 44.6 % (41.0-53.0); Hemoglobin 14.7 g/dL (13.5-17.5); Lymphocytes # (auto) 1.4 10 ^3/uL (0.4-5.4); Lymphocytes % (auto) 18.5 % (10.0-50.0); Mean Corpuscular Hemoglobin 27.3 pg (28.0-32.0); Mean Corpuscular Volume 82.7 fL (80.0-100.0); Monocytes # (auto) 0.9 10 ^3/uL (0-1.3); Monocytes % (auto) 12.4 % (0.0-12.0); Neutrophils # (auto) 5.1 10 ^3/uL (1.6-8.6); Neutrophils % (auto) 67.4 % (37.0-80.0); Platelet Count (auto) 182 10^3/uL (140-450); White Blood Cell 7.5 10^3/uL (4.4-10.8)
[2024-08-21 06:35] LABS: INR 1.08 (0.9-1.15); Partial Thromboplastin Time 30.4 SEC (24.5-34.5); Prothrombin Time 11.4 sec (9.3-11.8)
[2024-08-21 06:36] LABS: Alanine Aminotransferase 19 U/L (7-40); Alkaline Phosphatase 92 U/L (46-116); Anion Gap 8 (5-15); Aspartate Aminotransferase 20 U/L (13-40); BUN/Creatinine Ratio 20.9 (10.0-20.0); Calcium 9.7 mg/dL (8.7-10.4); Carbon Dioxide 24 mmol/L (20-31); Chloride 103 mmol/L (98-107); Potassium 4.3 mmol/L (3.5-5.1)
[2024-08-21 06:37] LABS: Total Protein 6.5 g/dL (5.7-8.2)
[2024-08-21 06:41] LABS: Blood Urea Nitrogen 33 mg/dL (9-23); Glucose 106 mg/dL (74-106); Sodium 135 mmol/L (136-145)
--- NOTE | 2024-08-21 06:44 | DVH ---
CHEST RADIOGRAPH Indication: For procedure Technique: Single frontal view of the chest was obtained Comparison: XY CHEST PORTABLE on DOS: 08/15/24 FINDINGS: Lines and Tubes: None Lungs: No focal consolidation. Pleura: No effusion. No pneumothorax. Cardiomediastinal contours: Unremarkable Bones: No acute osseous abnormality. IMPRESSION: 1. No acute cardiopulmonary disease.
[2024-08-21] MEDS: IODIXANOL 320MG/ML 100ML BTL IV ONE (14:12)
[2024-08-21] MEDS: VERAPAMIL 2.5MG/ML INJ 2ML VIAL IV ONE (14:21)
[2024-08-21] MEDS: ANGIOMAX 250 MG VIAL IV ONE (14:21)
[2024-08-21] MEDS: MIDAZOLAM HCL 2MG/2ML 2ml VIAL (1mg/ml) ONE (14:21)
[2024-08-21] MEDS: fentaNYL CITRATE 100 MCG/2 ML VL ONE (14:21)
[2024-08-21] MEDS: LIDOCAINE 2%HCL (LOCAL ANESTH.) INJ 20ML MDV ONE (14:22)
--- NOTE | 2024-08-21 14:27 | ECG ---
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
--- NOTE | 2024-08-21 14:27 | ECG ---
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
--- NOTE | 2024-08-21 15:32 | DVHOP2 ---
Operative Report - 2 Report Details Date: 08/21/24 Preop Diagnosis: Patient presented with acute heart failure exacerbation. Echo showed severe dilated cardiomyopathy with ejection fraction of less than 20%. He was also diagnosed with non ST-elevation myocardial infarction type 1 versus type 2. He has history of diabetes mellitus type 2. Postop Diagnosis: 1. Normal left ventricular end-diastolic pressure. 2. Severe multivessel coronary artery disease and also involves the distal left main. Surgeon: Marylou Stanton MD Anesthesiologist: Patient was deemed an adequate candidate for conscious sedation. Versed and fentanyl were given during the procedure. I was available for continued lpxn-hu-gwbi monitoring throughout the procedure. 1 mg of Versed and25 mcg of fentanyl were given. Anesthesia: Local Consent: The patient was informed of the risks and benefits of the procedure. These include but are not limited to complications of anesthesia, postoperative infection, incomplete relief of symptoms, recurrence of symptoms, damage to blood vessels, nerves and tendons, deep venous thrombosis, pulmonary embolism and possible need for repeat surgery in the future. Estimated Blood Loss: 10 cc Name of Procedure Performed 1. Selective left and right coronary angiography. 2. Left heart catheterization. 3. Moderated sedation. Procedure Details Procedure Details: The patient was brought to the laboratory director in stable condition. He was found to have normal pulses in the right radial artery. The right wrist area was sterilized and draped in a sterile fashion. The skin was anesthetized using 1% lidocaine. Access in the right radial artery was obtained using a Seldinger approach. An 11 cm sheath was placed in the right radial artery. The left h eart catheterization, left coronary angiography, and right coronary angiography were performed using a5 Danish tiger catheter. At the completion of the procedure hemostasis in radial artery was obtained using a TR band. Findings: Hemodynamics: Aortic pressure was 115/70 mm Hg, LVEDP was 8 mm Hg. There is no significant gradient on LV to aorta pullback. Coronary angiography: The left main coronary artery is a normal caliber trifurcating vessel. Distal vessel has an eccentric 60-70% heavily calcified stenosis. The left anterior descending artery is normal caliber vessel that extends to the apex. The vessel has ahmb-pf-uvpnqbrh diffuse disease. Mid vessel has segmental 60-70% stenosis. Diagonal branches are small with no significant stenosis. Ramus intermedius branch is large in size. It has mild diffuse disease. The left circumflex artery is a normal-caliber nondominant vessel. Ostial vessel has 60-70% stenosis. Proximal to mid vessel has diffuse 70-80% calcified stenosis. There is a large left posterolateral branch with no significant disease. The right coronary artery is a normal caliber and dominant vessel. Proximal vessel has discrete 80% stenosis. Mid to distal vessel has mild diffuse disease. Distal vessel has 50% stenosis. RPDA is of normal size with mild diffuse disease. Right posterolateral branches with no significant stenosis. Impressions: 1. Normal left ventricular end-diastolic pressure. 2. Severe heavily calcified distal left main stenosis. 3. Severe stenosis in the proximal to mid left circumflex. 4. Severe stenosis in the proximal RCA. Plan: 1. Patient will be referred for CABG. 2. Optimize medical therapy for coronary artery disease and cardiomyopathy. 3. Risk factors modifications. Condition Stable Disposition Still a Patient MARYLOU STANTON MD Aug 21, 2024 15:31
--- NOTE | 2024-08-21 16:51 | DVHPN2 ---
Consult Progress Note Date Seen: Aug 21, 2024 Subjective Review of Systems: CVS:Normal, RESPIRATORY:Normal, NEURO:Normal Objective vital signs Vital Sign Date Time Temp Pulse Resp B/P (MAP) Pulse Ox O2 Delivery O2 Flow Rate FiO2 08/21/24 14:00 92/55 08/21/24 13:00 97.9 97 19 96 97.9 08/21/24 08:00 Room Air* 0 21 Total Intake and Output 08/20/24 08/20/24 08/21/24 15:00 23:00 07:00 Intake Total 750 ml 800 ml Output Total 1050 ml 825 ml 650 ml Balance -1050 ml -75 ml 150 ml medications Current Medications Medications Dose Ordered Sig/Luis Armando Route Start Time Stop Time Status Last Admin Dose Admin Aspirin 81 mg DAILY PO 08/16/24 10:00 08/21/24 10:16 81 MG Acetaminophen/ Hydrocodone Bitart 1 tab Q4HP PRN PO 08/16/24 02:00 Ondansetron HCl 4 mg Q4HP PRN IV 08/16/24 02:00 Docusate Sodium 100 mg BIDPRN PRN PO 08/16/24 02:00 Acetaminophen 650 mg Q6HP PRN PO 08/16/24 02:00 Morphine Sulfate 2 mg Q4HPRN PRN IV 08/16/24 02:00 Diagnostic Test (Pha) 1 strip ACHS 08/16/24 07:00 08/21/24 11:30 1 STRIP Insulin Human Regular ACHS SC 08/16/24 07:00 08/17/24 22:34 2 UNITS Dextrose 50 ml UD PRN IV 08/16/24 02:30 Sodium Chloride 10 ml Q8HR IV 08/16/24 06:00 08/21/24 14:00 10 ML Nitroglycerin 0.4 mg Q5MINP PRN SL 08/16/24 02:30 Morphine Sulfate 2 mg Q30M PRN IV 08/16/24 02:30 Ceftriaxone Sodium 50 ml @ 100 mls/hr DAILY@09 IV 08/17/24 09:00 08/19/24 10:12 100 MLS/HR Metoprolol Tartrate 25 mg BID PO 08/16/24 10:00 08/21/24 10:17 25 MG Atorvastatin Calcium 40 mg HS PO 08/18/24 22:00 08/20/24 22:48 40 MG Hydralazine HCl 25 mg Q8HR PO 08/18/24 14:00 08/21/24 05:31 25 MG Isosorbide Mononitrate 30 mg DAILY PO 08/19/24 10:00 08/21/24 10:18 30 MG Furosemide 10 mg DAILY IV 08/20/24 10:00 08/20/24 11:34 10 MG Examination: LUNGS:Normal, CVS:Normal, NEURO:Normal laboratory and microbiology Laboratory Tests 08/21/24 05:28 Test 08/21/24 05:28 Range/Units Serum Glucose 106 74-106 mg/dL Problem List/Assessment/Plan Problem List/Assessment/Plan Acute on chronic decompensated HFrEF, NYHA Class III, newly diagnosed Multivessel coronary artery disease including left main disease NSTEMI, likely type 2 secondary to above Right bundle branch block Suspected cellulitis to LLE Cun-qubmnji-cbrydwlpf diabetes mellitus Hypertension Likely JAMAR on CKD Obesity Plan/Recommendation (Dr. Stanton) Transthoracic echocardiogram revealed EF < 20% with severely dilated left ventricle and severe global hypokinesis. The patient underwent a coronary angiogram with left cardiac catheterization revealing multivessel coronary artery disease including left main disease for which he will be referred to higher level of care for CABG evaluation and initiated on a heparin drip. In the meantime, continue ASA and statin as well as GDMT for CHF as renal function permits, pre-procedural creatinine today 1.58 (Hold FELICE/ARB/ARNI, SGLT2i, and mineral corticoid receptor agonist). Continue preload and afterload reduction as tolerated. Continue daily weights, maintaining fluid restriction, and strict I&Os. Cardiac surveillance, monitor for any ECG changes. Monitor ECG changes and notify. Continue Nephrology recommendations. Thank you for allowing us to care for this patient. Please call with any questions or concerns. This medical document was created using an electronic medical record system with voice recognition software and computerized dictation system. Although this document has been carefully reviewed, there might still be some phonetic and typographical errors. Occasional wrong-word or ``sound-alike substitutions may have occurred due to the inherent limitations of voice recognition software. These areas are purely typographical due to imperfections of the software programs and do not reflect any compromise in the patient's medical care. Please read the chart carefully and recognize, using context, where these substitutions have occurred. Plan discussed with: Patient, Other Dietary Evaluation Review Comments: 1. Continue current diet 2. Consider adding Alberto Bid (180kcal, 5 gpro) if wound worsens Expected Outcomes/Goals: 1. Pt will consume >75% of needs within 3-5 days Date of Service: Aug 21, 2024 Billing Provider: MARYLOU STANTON MD Cardiology Common Codes: [id number] HOSP CARE([facility] ALON AGUILAR [facility] Aug 21, 2024 16:51
--- NOTE | 2024-08-21 17:14 | DVHPN2 ---
Progress Note Date Seen: Aug 21, 2024 Medical Necessity Reason Pt with a Central, PICC or Fol: No Subjective Patient reports: No new complaints, Other Review of Systems: Deferred Objective vital signs Vital Sign Date Time Temp Pulse Resp B/P (MAP) Pulse Ox O2 Delivery O2 Flow Rate FiO2 08/21/24 14:00 92/55 08/21/24 13:00 97.9 97 19 96 97.9 08/21/24 08:00 Room Air* 0 21 Total Intake and Output 08/20/24 08/20/24 08/21/24 15:00 23:00 07:00 Intake Total 750 ml 800 ml Output Total 1050 ml 825 ml 650 ml Balance -1050 ml -75 ml 150 ml medications Current Medications Medications Dose Ordered Sig/Luis Armando Route Start Time Stop Time Status Last Admin Dose Admin Aspirin 81 mg DAILY PO 08/16/24 10:00 08/21/24 10:16 81 MG Acetaminophen/ Hydrocodone Bitart 1 tab Q4HP PRN PO 08/16/24 02:00 Ondansetron HCl 4 mg Q4HP PRN IV 08/16/24 02:00 Docusate Sodium 100 mg BIDPRN PRN PO 08/16/24 02:00 Acetaminophen 650 mg Q6HP PRN PO 08/16/24 02:00 Morphine Sulfate 2 mg Q4HPRN PRN IV 08/16/24 02:00 Diagnostic Test (Pha) 1 strip ACHS 08/16/24 07:00 08/21/24 17:07 1 STRIP Insulin Human Regular ACHS SC 08/16/24 07:00 08/17/24 22:34 2 UNITS Dextrose 50 ml UD PRN IV 08/16/24 02:30 Sodium Chloride 10 ml Q8HR IV 08/16/24 06:00 08/21/24 14:00 10 ML Nitroglycerin 0.4 mg Q5MINP PRN SL 08/16/24 02:30 Morphine Sulfate 2 mg Q30M PRN IV 08/16/24 02:30 Ceftriaxone Sodium 50 ml @ 100 mls/hr DAILY@09 IV 08/17/24 09:00 08/19/24 10:12 100 MLS/HR Metoprolol Tartrate 25 mg BID PO 08/16/24 10:00 08/21/24 10:17 25 MG Atorvastatin Calcium 40 mg HS PO 08/18/24 22:00 08/20/24 22:48 40 MG Hydralazine HCl 25 mg Q8HR PO 08/18/24 14:00 08/21/24 05:31 25 MG Isosorbide Mononitrate 30 mg DAILY PO 08/19/24 10:00 08/21/24 10:18 30 MG Furosemide 10 mg DAILY IV 08/20/24 10:00 08/20/24 11:34 10 MG Heparin Sodium/ Dextrose 250 ml @ 12.48 mls/ hr Q20H2M IV 08/21/24 20:00 UNV Examination: GENERAL:Normal, HEENT:Normal, NECK:Normal, LUNGS:Normal, CVS:Normal, ABDOMEN:Normal, MSK:Abnormal, SKIN:Normal, NEURO:Normal, :Normal laboratory and microbiology Laboratory Tests 08/21/24 05:28 Test 08/21/24 05:28 Range/Units Serum Glucose 106 74-106 mg/dL Problem List/Assessment/Plan Problem List/Assessment/Plan Acute kidney injury hemodynamically mediated Chronic kidney disease unspecified baseline unknown New onset decompensated systolic heart failure Hypertension Diabetes Recommendations Plan for cardiac catheterization noted Moderate risk for ELIECER We will follow closely post cardiac catheterization Hold diuretics before procedure--resume 12 hrs after procedure Plan discussed with: Patient, Other Dietary Evaluation Review Comments: 1. Continue current diet 2. Consider adding Alberto Bid (180kcal, 5 gpro) if wound worsens Expected Outcomes/Goals: 1. Pt will consume >75% of needs within 3-5 days MICHAEL JAIMES MD Aug 21, 2024 17:13
--- NOTE | 2024-08-21 19:27 | DVHPN2 ---
Subjective 08/21 - LHC today. showing multivessel disease, rec CABG. patient remains euvlemic, at his baseline. endorses that he is loking forward to CABG as he had been "barely been living" and wants to feel better. 08/20 - LHC tomorrow. patient remains euvolemic, w/o complains. 08/19 patient feeling improved, no chest pain. Cardiology following with plan for LHC in 2 days. We will continue to keep patient euvolemic. 08/18 update patient is improved significantly. No leg edema, but there is some rales in lower lobes bilaterally. Shortness of breadth improving RIZZO improving. Echo done showing FF HFrEF, cardiology following and 1 euvolemia before they can decide if patient needs LHC. 08/17 update- Patient doing well, lungs clear, legs improving. echo today and cardiology continues to follow. on tele. 08/16 update- Patient doing well, still gets short of breath,. Legs with significant swelling. Minimal rales. Cardiology following and consulted. Continuing diuresis, echo tomorrow. Continue telemetry. Reviewed: H&P Changes from previous H/P or p: No Changes General: Per HPI Objective Vitals Vital Signs Date Time Temp Pulse Resp B/P (MAP) Pulse Ox O2 Delivery O2 Flow Rate FiO2 08/21/24 17:00 98.1 77 17 107/62 (77) 93 98.1 08/21/24 08:00 Room Air* 0 21 Intake/Output Intake and Output 08/21/24 07:00 Intake Total 1550 ml Output Total 2525 ml Balance -975 ml Intake Oral 1550 ml Output Urine Total 2525 ml # Voids 3 Exam GEN: Healthy appearing, well-developed, NAD. HEENT: NC/AT; MMM. CV: RRR, no m/r/g. LUNGS: Bibasilar rales ABD: Soft, NT/ND, NBS, no masses or organomegaly. EXT: Bilateral pitting edema traice-1+ up to shins. NEURO: Ambulating with no limitations. No focal deficits. Medications Current Medications Medications Dose Ordered Sig/Luis Armando Route Start Time Stop Time Status Last Admin Dose Admin Aspirin 81 mg DAILY PO 08/16/24 10:00 08/21/24 10:16 81 MG Acetaminophen/ Hydrocodone Bitart 1 tab Q4HP PRN PO 08/16/24 02:00 Ondansetron HCl 4 mg Q4HP PRN IV 08/16/24 02:00 Docusate Sodium 100 mg BIDPRN PRN PO 08/16/24 02:00 Acetaminophen 650 mg Q6HP PRN PO 08/16/24 02:00 Morphine Sulfate 2 mg Q4HPRN PRN IV 08/16/24 02:00 Diagnostic Test (Pha) 1 strip ACHS 08/16/24 07:00 08/21/24 17:07 1 STRIP Insulin Human Regular ACHS SC 08/16/24 07:00 08/17/24 22:34 2 UNITS Dextrose 50 ml UD PRN IV 08/16/24 02:30 Sodium Chloride 10 ml Q8HR IV 08/16/24 06:00 08/21/24 14:00 10 ML Nitroglycerin 0.4 mg Q5MINP PRN SL 08/16/24 02:30 Morphine Sulfate 2 mg Q30M PRN IV 08/16/24 02:30 Ceftriaxone Sodium 50 ml @ 100 mls/hr DAILY@09 IV 08/17/24 09:00 08/19/24 10:12 100 MLS/HR Metoprolol Tartrate 25 mg BID PO 08/16/24 10:00 08/21/24 10:17 25 MG Atorvastatin Calcium 40 mg HS PO 08/18/24 22:00 08/20/24 22:48 40 MG Hydralazine HCl 25 mg Q8HR PO 08/18/24 14:00 08/21/24 05:31 25 MG Isosorbide Mononitrate 30 mg DAILY PO 08/19/24 10:00 08/21/24 10:18 30 MG Furosemide 10 mg DAILY IV 08/20/24 10:00 08/20/24 11:34 10 MG Heparin Sodium/ Dextrose 250 ml @ 10 mls/hr Q24H IV 08/21/24 20:00 Laboratory Results Laboratory Tests 08/21/24 05:28 Chemistry Test 08/21/24 05:28 Albumin 4.0 g/dL (3.2-4.8) Calcium Level 9.7 mg/dL (8.7-10.4) Total Protein 6.5 g/dL (5.7-8.2) Coagulation Test 08/21/24 05:28 Prothrombin Time 11.4 sec (9.3-11.8) Prothrombin Time INR 1.08 (0.9-1.15) Activated Partial Thromboplast Time 30.4 SEC (24.5-34.5) LFT Test 08/21/24 05:28 Alanine Aminotransferase (ALT) 19 U/L (7-40) Alkaline Phosphatase 92 U/L (46-116) Aspartate Amino Transferase (AST) 20 U/L (13-40) Total Bilirubin 1.0 mg/dL (0.2-1.0) Urinalysis Test 08/18/24 11:31 Urine Color Colorless (Yellow) Urine Clarity Clear (Clear) Urine pH 7.0 (5.0-9.0) Urine Specific [place] 1.007 (1.001-1.035) Urine Protein Negative (Negative) Urine Ketones Negative (Negative) Urine Blood Negative /uL (Negative) Urine Nitrite Negative (Negative) Urine Bilirubin Negative (Negative) Urine Urobilinogen Normal mg/dL (Negative) Urine Leukocyte Esterase Negative /uL (Negative) Urine RBC <1 /hpf (0 - 3) Urine WBC None seen /hpf (0 - 3) Urine Squamous Epithelial Cells None seen /hpf (<5) Urine Bacteria Few /hpf (None Seen) H Urine Creatinine 15.47 mg/dL (30.0-125.0) L Urine Protein/Creatinine Ratio < 0.39 Urine Glucose Normal mg/dL (Normal) Urine Total Protein < 6.0 mg/dL (1-14) Labs and/or images reviewed: Labs reviewed by me, Image(s) reviewed by me Assessment/Plan Assessment/Plan 08/21 - [facility] today. showing multivessel disease, rec CABG. patient remains euvlemic, at his baseline. endorses that he is loking forward to CABG as he had been "barely been living" and wants to feel better. # Acute on chronic congestive heart failure, diastolic and systolic, newly diagnosed # HFrEF # CAD , multivessel disease #ischemic heart disease # bilateral pitting edema # type 2 NSTEMI - patient presenting with chest pain shortness of breath dyspnea on exertion, orthopnea PND. NYHA worsening 2-3 - on admit DVT ultrasound negative for any DVT bilateral -BNP elevated-CXR showing possible pulmonary vascular congestion was mostly normal x-ray. -on exam patient has minimal bibasilar rales, but significant pitting edema 3+ up to upper shins. - echo 08/17 - EF less than 20% with severely dilated left ventricle and severe global hypokinesis. - differential includes acute on chronic CHF exacerbation but could also be chronic venous insufficiency, DVT unlikely with a rule out. --cardiology consulted, continue IV diuresis Lasix 10 qday -started on beta-kimberly. start GDMT as telra;cori (renal tox meds held, robbi arb arni, mra)- currently only on beta-kimberly and SGLT2 inhibitor -continue diuresis, - plan per cardiology: [facility] with multivessel disease - plan for transfer [facility] for CABG. # left weber anterior wound, healing well. Likely venous stasis ulcer-we will get consulted keep dry # JAMAR, possible CKD-nephrology consulted. Diet cardiac . npo mn DVT prophylaxis Lovenox subQ GI prophylaxis tolerating diet Med tele Full code Plan discussed with: Patient Date of Service: Aug 21, 2024 Billing Provider: DAVID ARORA MD Common Visit Codes: [id number] INP/OBS CARE(HIGH) DAVID ARORA MD Aug 21, 2024 19:27
[2024-08-21 20:26] LABS: INR 1.09 (0.9-1.15); Partial Thromboplastin Time 30.4 SEC (24.5-34.5); Prothrombin Time 11.5 sec (9.3-11.8)
[2024-08-21] MEDS: HEPARIN DRIP/D5W 100UNITS/ML 250 ML IV SCH (20:59)
[2024-08-22] VITALS (8 sets, daily range): BP systolic 106–118; BP diastolic 60–76; PULSE 63–85; RESP 17–19; TEMP 97.8–98.4; O2SAT 94–99
[2024-08-22 03:30] LABS: INR 1.13 (0.9-1.15); Partial Thromboplastin Time 42.4 SEC (24.5-34.5); Prothrombin Time 11.9 sec (9.3-11.8)
[2024-08-22] MEDS: HEPARIN DRIP/D5W 100UNITS/ML 250 ML IV SCH (04:19)
[2024-08-22 09:15] LABS: Urine WBC None Seen /hpf (0 - 3)
[2024-08-22] MEDS: METOPROLOL SUCCINATE XL 50 MG TAB PO SCH (09:33)
--- NOTE | 2024-08-22 09:39 | DVHINCON2 ---
Allergies: Coded Allergies: NO KNOWN ALLERGIES (Unverified , 08/15/24) Current Medications Current Medications Medications (Trade) Dose Ordered Sig/Luis Armando Route PRN Reason Start Time Stop Time Status Last Admin Heparin Sodium/ Dextrose 250 ml @ 10 mls/hr Q24H IV 08/21/24 20:00 08/22/24 04:00 DC 08/21/24 20:59 Heparin Sodium/ Dextrose 250 ml @ 12 mls/hr [id number] IV 08/22/24 04:00 08/22/24 04:19 Metoprolol Succinate (Toprol Xl) 25 mg DAILY PO 08/22/24 10:00 08/22/24 09:33 Vital Signs Vital Signs Date Time Temp Pulse Resp B/P (MAP) Pulse Ox O2 Delivery O2 Flow Rate FiO2 08/22/24 09:33 75 118/68 08/22/24 09:00 97.9 18 96 97.9 08/21/24 20:00 Room Air* 0 21 Labs/Diagnostic Data Labs Test 08/22/24 08:50 08/22/24 05:59 08/22/24 02:57 08/21/24 05:28 Range/Units POC Glucose 94 70-106 mg/dl Prothrombin Time 11.9 H 9.3-11.8 sec Prothrombin Time INR 1.13 0.9-1.15 Activated Partial Thromboplast Time 42.4 H 24.5-34.5 SEC White Blood Count 7.5 4.4-10.8 10^3/uL Red Blood Count 5.40 4.5-5.90 10^6/uL Hemoglobin 14.7 13.5-17.5 g/dL Hematocrit 44.6 41.0-53.0 % Mean Corpuscular Volume 82.7 80.0-100.0 fL Mean Corpuscular Hemoglobin 27.3 L 28.0-32.0 pg Mean Corpuscular Hemoglobin Concent 33.0 32.0-36.0 g/dL Red Cell Distribution Width 18.3 H 11.8-14.3 % Platelet Count 182 140-450 10^3/uL Mean Platelet Volume 8.5 6.9-10.8 fL Neutrophils (%) (Auto) 67.4 37.0-80.0 % Lymphocytes (%) (Auto) 18.5 10.0-50.0 % Monocytes (%) (Auto) 12.4 H 0.0-12.0 % Eosinophils (%) (Auto) 1.5 0.0-7.0 % Basophils (%) (Auto) 0.2 0.0-2.0 % Neutrophils # (Auto) 5.1 1.6-8.6 10 ^3/uL Lymphocytes # (Auto) 1.4 0.4-5.4 10 ^3/uL Monocytes # (Auto) 0.9 0-1.3 10 ^3/uL Eosinophils # (Auto) 0.1 0-0.8 10 ^3/uL Basophils # (Auto) 0 0-0.2 10 ^3/uL Nucleated Red Blood Cells 0.1 % Sodium Level 135 L 136-145 mmol/L Potassium Level 4.3 3.5-5.1 mmol/L Chloride Level 103 98-107 mmol/L Carbon Dioxide Level 24 20-31 mmol/L Anion Gap 8 5-15 Blood Urea Nitrogen 33 H 9-23 mg/dL Creatinine 1.58 H 0.700-1.30 mg/dL Glomerular Filtration Rate Calc 49 >90 mL/min BUN/Creatinine Ratio 20.9 H 10.0-20.0 Serum Glucose 106 74-106 mg/dL Calcium Level 9.7 8.7-10.4 mg/dL Total Bilirubin 1.0 0.2-1.0 mg/dL Aspartate Amino Transferase (AST) 20 13-40 U/L Alanine Aminotransferase (ALT) 19 7-40 U/L Alkaline Phosphatase 92 46-116 U/L Total Protein 6.5 5.7-8.2 g/dL Albumin 4.0 3.2-4.8 g/dL Test 08/19/24 06:29 08/18/24 11:31 08/16/24 09:54 08/15/24 20:56 Range/Units B-Type Natriuretic Peptide 1572.64 0-100 pg/mL Urine Creatinine 15.47 L 30.0-125.0 mg/dL Urine Protein/Creatinine Ratio < 0.39 Urine Total Protein < 6.0 1-14 mg/dL Hemoglobin A1c 6.7 H <5.7 % A1C Magnesium Level 2.1 1.6-2.6 mg/dL Triglycerides Level 92 < 150 mg/dL Cholesterol Level 160 < 200 mg/dL LDL Cholesterol 96 < 100 mg/dL HDL Cholesterol 52 40-59 mg/dL Thyroid Stimulating Hormone (TSH) 1.49 0.55-4.78 uIU/mL Troponin I High Sensitivity 502 *H </=54 ng/L [id number] [facility] Aug 22, 2024 09:39
[2024-08-22 09:49] LABS: Urine Bacteria FEW /hpf (None Seen); Urine Blood Negative /uL (Negative); Urine Clarity Clear (Clear); Urine Color Light-Yellow (Yellow); Urine Protein, UAD Negative (Negative); Urine Specific Gravity 1.013 (1.001-1.035); Urine Squamous Epithelial Cell FEW /hpf (<5); Urine Urobilinogen Normal (Negative)
[2024-08-22 10:45] LABS: Basophils # (auto) 0 10 ^3/uL (0-0.2); Basophils % (auto) 0.3 % (0.0-2.0); Eosinophils # (auto) 0.1 10 ^3/uL (0-0.8); Eosinophils % (auto) 1.6 % (0.0-7.0); Hematocrit 45.5 % (41.0-53.0); Hemoglobin 14.7 g/dL (13.5-17.5); Lymphocytes # (auto) 1.2 10 ^3/uL (0.4-5.4); Lymphocytes % (auto) 21.5 % (10.0-50.0); Mean Corpuscular Hemoglobin 26.8 pg (28.0-32.0); Mean Corpuscular Hgb Conc. 32.3 g/dL (32.0-36.0); Monocytes # (auto) 0.7 10 ^3/uL (0-1.3); Monocytes % (auto) 12.4 % (0.0-12.0); Neutrophils # (auto) 3.7 10 ^3/uL (1.6-8.6); Neutrophils % (auto) 64.2 % (37.0-80.0); Nucleated Red Blood Cells % 0.1 %; Platelet Count (auto) 182 10^3/uL (140-450); Red Blood Cells 5.49 10^6/uL (4.5-5.90); Red Cell Distribution Width 18.7 % (11.8-14.3); White Blood Cell 5.7 10^3/uL (4.4-10.8)
[2024-08-22 11:03] LABS: Alanine Aminotransferase 17 U/L (7-40); Alkaline Phosphatase 91 U/L (46-116); Anion Gap 7 (5-15); Aspartate Aminotransferase 25 U/L (13-40); BUN/Creatinine Ratio 19.4 (10.0-20.0); Calcium 9.4 mg/dL (8.7-10.4); Carbon Dioxide 21 mmol/L (20-31); Chloride 107 mmol/L (98-107); Potassium 4.1 mmol/L (3.5-5.1)
[2024-08-22 11:04] LABS: Bilirubin, Total 1.1 mg/dL (0.2-1.0); Blood Urea Nitrogen 28 mg/dL (9-23); Glucose 162 mg/dL (74-106); Sodium 135 mmol/L (136-145); Total Protein 6.7 g/dL (5.7-8.2)
[2024-08-22 12:42] LABS: INR 1.09 (0.9-1.15); Prothrombin Time 11.5 sec (9.3-11.8)
--- NOTE | 2024-08-22 12:52 | DVHPN2 ---
Consult Progress Note Subjective Other Systems: Patient remains in normal sinus rhythm on analyzer sales. No cardiac events reported overnight Objective vital signs Vital Sign Date Time Temp Pulse Resp B/P (MAP) Pulse Ox O2 Delivery O2 Flow Rate FiO2 08/22/24 09:33 75 118/68 08/22/24 09:00 97.9 18 96 97.9 08/22/24 08:00 Room Air* 0 21 Total Intake and Output 08/21/24 08/21/24 08/22/24 15:00 23:00 07:00 Intake Total 700 ml 174 ml Output Total 540 ml 350 ml 1100 ml Balance -540 ml 350 ml -926 ml medications Current Medications Medications Dose Ordered Sig/Luis Armando Route Start Time Stop Time Status Last Admin Dose Admin Aspirin 81 mg DAILY PO 08/16/24 10:00 08/22/24 09:31 81 MG Acetaminophen/ Hydrocodone Bitart 1 tab Q4HP PRN PO 08/16/24 02:00 Ondansetron HCl 4 mg Q4HP PRN IV 08/16/24 02:00 Docusate Sodium 100 mg BIDPRN PRN PO 08/16/24 02:00 Acetaminophen 650 mg Q6HP PRN PO 08/16/24 02:00 Morphine Sulfate 2 mg Q4HPRN PRN IV 08/16/24 02:00 Diagnostic Test (Pha) 1 strip ACHS 08/16/24 07:00 08/22/24 06:02 1 STRIP Insulin Human Regular ACHS SC 08/16/24 07:00 08/17/24 22:34 2 UNITS Dextrose 50 ml UD PRN IV 08/16/24 02:30 Sodium Chloride 10 ml Q8HR IV 08/16/24 06:00 08/22/24 06:01 10 ML Nitroglycerin 0.4 mg Q5MINP PRN SL 08/16/24 02:30 Morphine Sulfate 2 mg Q30M PRN IV 08/16/24 02:30 Ceftriaxone Sodium 50 ml @ 100 mls/hr DAILY@09 IV 08/17/24 09:00 08/22/24 09:31 100 MLS/HR Atorvastatin Calcium 40 mg HS PO 08/18/24 22:00 08/21/24 22:02 40 MG Hydralazine HCl 25 mg Q8HR PO 08/18/24 14:00 08/22/24 06:01 25 MG Isosorbide Mononitrate 30 mg DAILY PO 08/19/24 10:00 08/22/24 09:32 30 MG Furosemide 10 mg DAILY IV 08/20/24 10:00 08/22/24 09:31 10 MG Heparin Sodium/ Dextrose 250 ml @ 12 mls/hr [id number] IV 08/22/24 04:00 08/22/24 04:19 12 MLS/HR Metoprolol Succinate 25 mg DAILY PO 08/22/24 10:00 08/22/24 09:33 25 MG Examination: GENERAL:Normal, LUNGS:Normal, CVS:Normal, NEURO:Normal laboratory and microbiology Laboratory Tests 08/22/24 10:18 Test 08/22/24 10:18 Range/Units Serum Glucose 162 H 74-106 mg/dL Problem List/Assessment/Plan Problem List/Assessment/Plan Acute on chronic decompensated HFrEF, NYHA Class III, newly diagnosed 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 Stanton) Transthoracic echocardiogram revealed EF < 20% with severely dilated left ventricle and severe global hypokinesis. The patient underwent a coronary angiogram with left cardiac catheterization revealing multivessel coronary artery disease including left main disease for which he will be referred to higher level of care for CABG evaluation. We are currently pending acceptance to facility for possible CABG. In the meantime, continue heparin drip, continue ASA and statin as well as GDMT for CHF as renal function permits (creatinine today 1.44), (Hold FELICE/ARB/ARNI, SGLT2i, and mineral corticoid receptor agonist). Continue preload and afterload reduction as tolerated. Continue daily weights, maintaining fluid restriction, and strict I&Os. Cardiac surveillance, monitor for any ECG changes. Monitor ECG changes and notify. Continue Nephrology recommendations. Thank you for allowing us to care for this patient. Please call with any questions or concerns. This medical document was created using an electronic medical record system with voice recognition software and computerized dictation system. Although this document has been carefully reviewed, there might still be some phonetic and typographical errors. Occasional wrong-word or ``sound-alike substitutions may have occurred due to the inherent limitations of voice recognition software. These areas are purely typographical due to imperfections of the software programs and do not reflect any compromise in the patient's medical care. Please read the chart carefully and recognize, using context, where these substitutions have occurred. Plan discussed with: Patient Dietary Evaluation Review Comments: 1. Continue current diet 2. Consider adding Alberto Bid (180kcal, 5 gpro) if wound worsens Expected Outcomes/Goals: 1. Pt will consume >75% of needs within 3-5 days Date of Service: Aug 22, 2024 Billing Provider: MARYLOU STANTON MD Common Visit Codes: [id number] INP/OBS CARE(HIGH) KRZYSZTOF LEWIS HEARING AID REPAIRER Aug 22, 2024 12:52
--- NOTE | 2024-08-22 13:46 | DVHDS2 ---
Discharge Summary Date of Admission Aug 16, 2024 at 02:23 Date of Discharge: Aug 22, 2024 Labs/Diagnostic Data: Laboratory Results Test 08/22/24 11:42 08/22/24 10:18 08/22/24 08:50 08/19/24 06:29 POC Glucose 124 mg/dl (70-106) White Blood Count 5.7 10^3/uL (4.4-10.8) Red Blood Count 5.49 10^6/uL (4.5-5.90) Hemoglobin 14.7 g/dL (13.5-17.5) Hematocrit 45.5 % (41.0-53.0) Mean Corpuscular Volume 83.0 fL (80.0-100.0) Mean Corpuscular Hemoglobin 26.8 pg (28.0-32.0) Mean Corpuscular Hemoglobin Concent 32.3 g/dL (32.0-36.0) Red Cell Distribution Width 18.7 % (11.8-14.3) Platelet Count 182 10^3/uL (140-450) Mean Platelet Volume 8.6 fL (6.9-10.8) Neutrophils (%) (Auto) 64.2 % (37.0-80.0) Lymphocytes (%) (Auto) 21.5 % (10.0-50.0) Monocytes (%) (Auto) 12.4 % (0.0-12.0) Eosinophils (%) (Auto) 1.6 % (0.0-7.0) Basophils (%) (Auto) 0.3 % (0.0-2.0) Neutrophils # (Auto) 3.7 10 ^3/uL (1.6-8.6) Lymphocytes # (Auto) 1.2 10 ^3/uL (0.4-5.4) Monocytes # (Auto) 0.7 10 ^3/uL (0-1.3) Eosinophils # (Auto) 0.1 10 ^3/uL (0-0.8) Basophils # (Auto) 0 10 ^3/uL (0-0.2) Nucleated Red Blood Cells 0.1 % Prothrombin Time 11.5 sec (9.3-11.8) Prothrombin Time INR 1.09 (0.9-1.15) Activated Partial Thromboplast Time 59.0 SEC (24.5-34.5) Sodium Level 135 mmol/L (136-145) Potassium Level 4.1 mmol/L (3.5-5.1) Chloride Level 107 mmol/L (98-107) Carbon Dioxide Level 21 mmol/L (20-31) Anion Gap 7 (5-15) Blood Urea Nitrogen 28 mg/dL (9-23) Creatinine 1.44 mg/dL (0.700-1.30) Glomerular Filtration Rate Calc 54 mL/min (>90) BUN/Creatinine Ratio 19.4 (10.0-20.0) Serum Glucose 162 mg/dL (74-106) Calcium Level 9.4 mg/dL (8.7-10.4) Total Bilirubin 1.1 mg/dL (0.2-1.0) Aspartate Amino Transferase (AST) 25 U/L (13-40) Alanine Aminotransferase (ALT) 17 U/L (7-40) Alkaline Phosphatase 91 U/L (46-116) Total Protein 6.7 g/dL (5.7-8.2) Albumin 4.0 g/dL (3.2-4.8) Urine Color Light-yellow (Yellow) Urine Clarity Clear (Clear) Urine pH 7.0 (5.0-9.0) Urine Specific [place] 1.013 (1.001-1.035) Urine Protein Negative (Negative) Urine Ketones Negative (Negative) Urine Blood Negative /uL (Negative) Urine Nitrite Negative (Negative) Urine Bilirubin Negative (Negative) Urine Urobilinogen Normal mg/dL (Negative) Urine Leukocyte Esterase Negative /uL (Negative) Urine RBC None seen /hpf (0 - 3) Urine WBC None seen /hpf (0 - 3) Urine Squamous Epithelial Cells Few /hpf (<5) Urine Bacteria Few /hpf (None Seen) Urine Glucose Normal mg/dL (Normal) B-Type Natriuretic Peptide 1572.64 pg/mL (0-100) Test 08/18/24 11:31 08/16/24 09:54 08/15/24 20:56 Urine Creatinine 15.47 mg/dL (30.0-125.0) Urine Protein/Creatinine Ratio < 0.39 Urine Total Protein < 6.0 mg/dL (1-14) Hemoglobin A1c 6.7 % A1C (<5.7) Magnesium Level 2.1 mg/dL (1.6-2.6) Triglycerides Level 92 mg/dL (< 150) Cholesterol Level 160 mg/dL (< 200) LDL Cholesterol 96 mg/dL (< 100) HDL Cholesterol 52 mg/dL (40-59) Thyroid Stimulating Hormone (TSH) 1.49 uIU/mL (0.55-4.78) Troponin I High Sensitivity 502 ng/L (</=54) Other Laboratory Tests 08/22/24 10:18 Brief Hx & Hospital Course: 63 years old male with past medical history of hypertension and diabetes mellitus who presented to [facility] ED with complaint of chest pain. Patient reports symptoms progressively get worse with shortness of breaths, bilateral lower extremity swelling, generalized weakness, getting worse today that prompted this visit. Patient reports he has been taking Lasix from a friend at home due to lower extremity swelling. patient presenting with chest pain shortness of breath dyspnea on exertion, orthopnea PND. NYHA worsening 2-3. on admit DVT ultrasound negative for any DVT bilateral. BNP elevated, Cr elevated but appears stable. CXR showing possible pulmonary vascular congestion was mostly normal x-ray. on exam patient has minimal bibasilar rales, but significant pitting edema 3+ up to upper shins. a dmitted for newly diagnosed acute CHF exacerbation, unknown systolic and/or diastolic.. Echo TTE on 08/17/24 - EF less than 20% with severely dilated left ventricle and severe global hypokinesis. started on lasix IV BID, diuresed to euvolemia by 08/19/24. on 08/21 taken to center medical and lab director and [facility] angiogram shows multivessel disease: Severe heavily calcified distal left main stenosis, Severe stenosis in the proximal to mid left circumflex, Severe stenosis in the proximal RCA. given multivessel disease patient meets CABG criteria and needs specialist eval. cardiology recommend medical management, GDMT optimization and transfer [facility] for CABG eval. In the meantime, continue heparin drip, continue ASA and statin as well as GDMT for CHF as renal function permits (creatinine today 1.44), (Hold FELICE/ARB/ARNI, SGLT2i, and mineral corticoid receptor agonist). discharge and transfer to [facility] when facility and bed available. transfer plan as below, stable for transfer. Diagnosis: new diagnosed CAD, multivessel disease including left main disease, transfer to [facility] to eval for CABG; ischemic cardiomyopathy, new diagnosis; new diagnosed HFrEF, NYHA 3; acute on chronic systolic and diastolic heart failure exacerbation; NSTEMI; RBBB; JAMAR on CKD likely chronic cardiorenal; CAP g- /g+/atypical possible; LLE cellulitis suspected, stable; NIDDM, HTN discharge/transfer plan: - transfer to [facility] for CABG eval, per cardiology eval and recommendations. continue heparin gtt, continue po asa 81, lipitor 40, - for HFrEF GDMIT - metorpolol XL 25; conitnue lasix 20 po daily, imdur 30 with hydralazine 25 tid; held FELICE/ARB/MRA for jamar on ckd likely chronic cardiorenal. nephrology was following. - for DM , mild sliding scale insulin, - no antibiotics, s/p empiric ceftriaxone for possible pneumonia. Condition at Discharge: Higher Level of Care Final Diagnosis/Problems List new diagnosed CAD, multivessel disease including left main disease, transfer to [facility] to eval for CABG; new diagnosed HFrEF, NYHA 3; acute on chronic systolic and diastolic heart failure exacerbation; NSTEMI; RBBB; JAMAR on CKD likely chronic cardiorenal; CAP g-/g+/atypical possible; LLE cellulitis suspected, stable; NIDDM, HTN Discharge Disposition: Acute Care Facility Discharge Instruct/Medications Diet: Cardiac 2g Na,low cholest Activity: Light activity Follow Up/Referral: below Medications: below Discharge Statement: "Patient was advised to return to the ER or call 911 if any headaches, dizziness, shortness of breath, chest pain, abdominal pain, bleeding, fevers, or worsening of medical condition. Patient was counseled about treatment plan, medications, possible side effects, patientverbalized understanding. All questions were answered to the best of my ability. This discharge took greater then 30 minutes in planning, reviewing documentation, counseling the patient, and discussing with other team members." ASSESSMENT ASSESSMENT Assessment new diagnosed CAD, multivessel disease including left main disease, transfer to [facility] to eval for CABG; new diagnosed HFrEF, NYHA 3; acute on chronic systolic and diastolic heart failure exacerbation; NSTEMI; RBBB; JAMAR on CKD likely chronic cardiorenal; CAP g-/g+/atypical possible; LLE cellulitis suspected, stable; NIDDM, HTN Date of Service: Aug 22, 2024 Billing Provider: DAVID ARORA MD Common Visit Codes: [id number] DISCH DAY >30min DAVID ARORA MD Aug 22, 2024 13:46
--- NOTE | 2024-08-22 13:51 | DVHPN2 ---
Progress Note Date Seen: Aug 22, 2024 Medical Necessity Reason Pt with a Central, PICC or Fol: No Subjective Patient reports: No new complaints Review of Systems: Deferred Objective vital signs Vital Sign Date Time Temp Pulse Resp B/P (MAP) Pulse Ox O2 Delivery O2 Flow Rate FiO2 08/22/24 09:33 75 118/68 08/22/24 09:00 97.9 18 96 97.9 08/22/24 08:00 Room Air* 0 21 Total Intake and Output 08/21/24 08/21/24 08/22/24 15:00 23:00 07:00 Intake Total 700 ml 174 ml Output Total 540 ml 350 ml 1100 ml Balance -540 ml 350 ml -926 ml medications Current Medications Medications Dose Ordered Sig/Luis Armando Route Start Time Stop Time Status Last Admin Dose Admin Aspirin 81 mg DAILY PO 08/16/24 10:00 08/22/24 09:31 81 MG Acetaminophen/ Hydrocodone Bitart 1 tab Q4HP PRN PO 08/16/24 02:00 Ondansetron HCl 4 mg Q4HP PRN IV 08/16/24 02:00 Docusate Sodium 100 mg BIDPRN PRN PO 08/16/24 02:00 Acetaminophen 650 mg Q6HP PRN PO 08/16/24 02:00 Morphine Sulfate 2 mg Q4HPRN PRN IV 08/16/24 02:00 Diagnostic Test (Pha) 1 strip ACHS 08/16/24 07:00 08/22/24 12:57 1 STRIP Insulin Human Regular ACHS SC 08/16/24 07:00 08/17/24 22:34 2 UNITS Dextrose 50 ml UD PRN IV 08/16/24 02:30 Sodium Chloride 10 ml Q8HR IV 08/16/24 06:00 08/22/24 06:01 10 ML Nitroglycerin 0.4 mg Q5MINP PRN SL 08/16/24 02:30 Morphine Sulfate 2 mg Q30M PRN IV 08/16/24 02:30 Atorvastatin Calcium 40 mg HS PO 08/18/24 22:00 08/21/24 22:02 40 MG Hydralazine HCl 25 mg Q8HR PO 08/18/24 14:00 08/22/24 06:01 25 MG Isosorbide Mononitrate 30 mg DAILY PO 08/19/24 10:00 08/22/24 09:32 30 MG Heparin Sodium/ Dextrose 250 ml @ 12 mls/hr [id number] IV 08/22/24 04:00 08/22/24 04:19 12 MLS/HR Metoprolol Succinate 25 mg DAILY PO 08/22/24 10:00 08/22/24 09:33 25 MG Furosemide 20 mg DAILY PO 08/23/24 10:00 laboratory and microbiology Laboratory Tests 08/22/24 10:18 Test 08/22/24 10:18 Range/Units Serum Glucose 162 H 74-106 mg/dL Problem List/Assessment/Plan Problem List/Assessment/Plan Acute kidney injury hemodynamically mediated Chronic kidney disease unspecified baseline unknown New onset decompensated systolic heart failure Hypertension Diabetes Recommendations ok to resume diuretics per cardiology renal function better-- i will sign off this case/pls reconsult as needed Plan discussed with: Patient Dietary Evaluation Review Comments: 1. Continue current diet 2. Consider adding Alberto Bid (180kcal, 5 gpro) if wound worsens Expected Outcomes/Goals: 1. Pt will consume >75% of needs within 3-5 days MICHAEL JAIMES MD Aug 22, 2024 13:51
[2024-08-22 19:30] LABS: INR 1.11 (0.9-1.15); Partial Thromboplastin Time 62.6 SEC (24.5-34.5); Prothrombin Time 11.7 sec (9.3-11.8)
[2024-08-23] VITALS (8 sets, daily range): BP systolic 106–133; BP diastolic 52–83; PULSE 68–89; RESP 16–19; TEMP 97.9–98.6; O2SAT 95–100
[2024-08-23 00:53] LABS: INR 1.11 (0.9-1.15); Partial Thromboplastin Time 63.3 SEC (24.5-34.5); Prothrombin Time 11.7 sec (9.3-11.8)
[2024-08-23 08:44] LABS: Basophils # (auto) 0 10 ^3/uL (0-0.2); Basophils % (auto) 0.3 % (0.0-2.0); Eosinophils # (auto) 0.1 10 ^3/uL (0-0.8); Hemoglobin 14.2 g/dL (13.5-17.5); Lymphocytes # (auto) 1.6 10 ^3/uL (0.4-5.4); Monocytes # (auto) 0.8 10 ^3/uL (0-1.3); Neutrophils # (auto) 3.4 10 ^3/uL (1.6-8.6)
[2024-08-23 08:47] LABS: INR 1.13 (0.9-1.15); Partial Thromboplastin Time 67.9 SEC (24.5-34.5); Prothrombin Time 11.9 sec (9.3-11.8)
[2024-08-23 08:48] LABS: Eosinophils % (auto) 1.9 % (0.0-7.0); Hematocrit 43.9 % (41.0-53.0); Lymphocytes % (auto) 26.7 % (10.0-50.0); Mean Corpuscular Hemoglobin 26.7 pg (28.0-32.0); Mean Corpuscular Hgb Conc. 32.4 g/dL (32.0-36.0); Mean Corpuscular Volume 82.3 fL (80.0-100.0); Monocytes % (auto) 13.5 % (0.0-12.0); Neutrophils % (auto) 57.6 % (37.0-80.0); Nucleated Red Blood Cells % 0.1 %; Platelet Count (auto) 170 10^3/uL (140-450); Red Blood Cells 5.33 10^6/uL (4.5-5.90); Red Cell Distribution Width 18.5 % (11.8-14.3); White Blood Cell 5.9 10^3/uL (4.4-10.8)
[2024-08-23] MEDS: FUROSEMIDE 20 MG TAB PO SCH (09:00)
--- NOTE | 2024-08-23 11:57 | DVHPN2 ---
Subjective 08/23 - doing well. no issues. euvolemia. continue CABG eval need, continue transfer plan. discharge plan in place from 08/22/24. 08/22 - doing well. no issues. continue CABG eval plan 08/21 - LHC today. showing multivessel disease, rec CABG. patient remains euvlemic, at his baseline. endorses that he is loking forward to CABG as he had been "barely been living" and wants to feel better. 08/20 - LHC tomorrow. patient remains euvolemic, w/o complains. 08/19 patient feeling improved, no chest pain. Cardiology following with plan for LHC in 2 days. We will continue to keep patient euvolemic. 08/18 update patient is improved significantly. No leg edema, but there is some rales in lower lobes bilaterally. Shortness of breadth improving RIZZO improving. Echo done showing FF HFrEF, cardiology following and 1 euvolemia before they can decide if patient needs LHC. 08/17 update- Patient doing well, lungs clear, legs improving. echo today and cardiology continues to follow. on tele. 08/16 update- Patient doing well, still gets short of breath,. Legs with significant swelling. Minimal rales. Cardiology following and consulted. Continuing diuresis, echo tomorrow. Continue telemetry. Reviewed: H&P Changes from previous H/P or p: No Changes General: Per HPI Objective Vitals Vital Signs Date Time Temp Pulse Resp B/P (MAP) Pulse Ox O2 Delivery O2 Flow Rate FiO2 08/23/24 09:00 122/67 08/23/24 08:59 68 08/23/24 08:32 97.9 16 98 97.9 08/23/24 08:00 Room Air* 0 21 Intake/Output Intake and Output 08/23/24 07:00 Intake Total 1839 ml Output Total 2250 ml Balance -411 ml Intake Oral 1660 ml IV Total 179 ml Output Urine Total 2250 ml Exam GEN: Healthy appearing, well-developed, NAD. HEENT: NC/AT; MMM. CV: RRR, no m/r/g. LUNGS: Bibasilar rales ABD: Soft, NT/ND, NBS, no masses or organomegaly. EXT: Bilateral pitting edema traice-1+ up to shins. NEURO: Ambulating with no limitations. No focal deficits. Medications Current Medications Medications Dose Ordered Sig/Luis Armando Route Start Time Stop Time Status Last Admin Dose Admin Aspirin 81 mg DAILY PO 08/16/24 10:00 08/23/24 09:01 81 MG Acetaminophen/ Hydrocodone Bitart 1 tab Q4HP PRN PO 08/16/24 02:00 Ondansetron HCl 4 mg Q4HP PRN IV 08/16/24 02:00 Docusate Sodium 100 mg BIDPRN PRN PO 08/16/24 02:00 Acetaminophen 650 mg Q6HP PRN PO 08/16/24 02:00 Morphine Sulfate 2 mg Q4HPRN PRN IV 08/16/24 02:00 Diagnostic Test (Pha) 1 strip ACHS 08/16/24 07:00 08/23/24 05:42 1 STRIP Insulin Human Regular ACHS SC 08/16/24 07:00 08/22/24 21:55 2 UNITS Dextrose 50 ml UD PRN IV 08/16/24 02:30 Sodium Chloride 10 ml Q8HR IV 08/16/24 06:00 08/23/24 05:37 10 ML Nitroglycerin 0.4 mg Q5MINP PRN SL 08/16/24 02:30 Morphine Sulfate 2 mg Q30M PRN IV 08/16/24 02:30 Atorvastatin Calcium 40 mg HS PO 08/18/24 22:00 08/22/24 21:39 40 MG Hydralazine HCl 25 mg Q8HR PO 08/18/24 14:00 08/23/24 05:37 25 MG Isosorbide Mononitrate 30 mg DAILY PO 08/19/24 10:00 08/23/24 09:00 30 MG Heparin Sodium/ Dextrose 250 ml @ 12 mls/hr [id number] IV 08/22/24 04:00 08/22/24 18:02 12 MLS/HR Metoprolol Succinate 25 mg DAILY PO 08/22/24 10:00 08/23/24 08:59 25 MG Furosemide 20 mg DAILY PO 08/23/24 10:00 08/23/24 09:00 20 MG Laboratory Results Laboratory Tests 08/22/24 10:18 08/23/24 07:37 Coagulation Test 08/22/24 18:34 08/23/24 00:18 08/23/24 07:37 Prothrombin Time 11.7 sec (9.3-11.8) 11.7 sec (9.3-11.8) 11.9 sec (9.3-11.8) H Prothrombin Time INR 1.11 (0.9-1.15) 1.11 (0.9-1.15) 1.13 (0.9-1.15) Activated Partial Thromboplast Time 62.6 SEC (24.5-34.5) H 63.3 SEC (24.5-34.5) H 67.9 SEC (24.5-34.5) H Urinalysis Test 08/18/24 11:31 08/22/24 08:50 Urine Creatinine 15.47 mg/dL (30.0-125.0) L Urine Protein/Creatinine Ratio < 0.39 Urine Total Protein < 6.0 mg/dL (1-14) Urine Color Light-yellow (Yellow) Urine Clarity Clear (Clear) Urine pH 7.0 (5.0-9.0) Urine Specific [place] 1.013 (1.001-1.035) Urine Protein Negative (Negative) Urine Ketones Negative (Negative) Urine Blood Negative /uL (Negative) Urine Nitrite Negative (Negative) Urine Bilirubin Negative (Negative) Urine Urobilinogen Normal mg/dL (Negative) Urine Leukocyte Esterase Negative /uL (Negative) Urine RBC None seen /hpf (0 - 3) Urine WBC None seen /hpf (0 - 3) Urine Squamous Epithelial Cells Few /hpf (<5) Urine Bacteria Few /hpf (None Seen) H Urine Glucose Normal mg/dL (Normal) Labs and/or images reviewed: Labs reviewed by me, Image(s) reviewed by me Assessment/Plan Assessment/Plan 08/23 - doing well. no issues. euvolemia. continue CABG eval need, continue transfer plan. discharge plan in place from 08/22/24. # Acute on chronic congestive heart failure, diastolic and systolic, newly diagnosed # HFrEF # CAD , multivessel disease #ischemic heart disease # bilateral pitting edema # type 2 NSTEMI - patient presenting with chest pain shortness of breath dyspnea on exertion, orthopnea PND. NYHA worsening 2-3 - on admit DVT ultrasound negative for any DVT bilateral -BNP elevated-CXR showing possible pulmonary vascular congestion was mostly normal x-ray. -on exam patient has minimal bibasilar rales, but significant pitting edema 3+ up to upper shins. - echo / - EF less than 20% with severely dilated left ventricle and severe global hypokinesis. - differential includes acute on chronic CHF exacerbation but could also be chronic venous insufficiency, DVT unlikely with a rule out. --cardiology consulted, continue lasix 20 po qday. -started on beta-kimberly. start GDMT as telra;cori (renal tox meds held, robbi arb arni, mra)- currently only on beta-kimberly and SGLT2 inhibitor -continue diuresis, - plan per cardiology: [facility] with multivessel disease - plan for transfer [facility] for CABG. cont heparin gtt # left weber anterior wound, healing well. Likely venous stasis ulcer-we will get consulted keep dry # JAMAR, possible CKD-nephrology consulted. Diet cardiac DVT prophylaxis Lovenox subQ GI prophylaxis tolerating diet Med tele Full code Plan discussed with: Patient My Orders Orders - DAVID ARORA MD Procedure Category Date Status Time Furosemide Tablet PHA 08/23/24 In Process (Lasix Tablet) 10:00 Discharge DISCHARGE 08/22/24 Transmitted 13:40 Date of Service: Aug 23, 2024 Billing Provider: DAVID ARORA MD Common Visit Codes: [id number] INP/OBS CARE(MOD) DAVID ARORA MD Aug 23, 2024 11:57
[2024-08-23] MEDS ORDERED: ALPRAZolam 0.25 MG TAB PO PRN (14:15)
--- NOTE | 2024-08-23 14:25 | DVHPN2 ---
Consult Progress Note Subjective Other Systems: Actual time of assessment: 1215 Patient in normal sinus rhythm at time of assessment The patient remains on heparin drip Objective vital signs Vital Sign Date Time Temp Pulse Resp B/P (MAP) Pulse Ox O2 Delivery O2 Flow Rate FiO2 08/23/24 13:08 106/64 08/23/24 13:00 98.0 78 16 98 98.0 08/23/24 08:00 Room Air* 0 21 Total Intake and Output 08/22/24 08/22/24 08/23/24 15:00 23:00 07:00 Intake Total 479 ml 610 ml 750 ml Output Total 1050 ml 1200 ml Balance 479 ml -440 ml -450 ml medications Current Medications Medications Dose Ordered Sig/Luis Armando Route Start Time Stop Time Status Last Admin Dose Admin Aspirin 81 mg DAILY PO 08/16/24 10:00 08/23/24 09:01 81 MG Acetaminophen/ Hydrocodone Bitart 1 tab Q4HP PRN PO 08/16/24 02:00 Ondansetron HCl 4 mg Q4HP PRN IV 08/16/24 02:00 Docusate Sodium 100 mg BIDPRN PRN PO 08/16/24 02:00 Acetaminophen 650 mg Q6HP PRN PO 08/16/24 02:00 Morphine Sulfate 2 mg Q4HPRN PRN IV 08/16/24 02:00 Diagnostic Test (Pha) 1 strip ACHS 08/16/24 07:00 08/23/24 11:30 1 STRIP Insulin Human Regular ACHS SC 08/16/24 07:00 08/22/24 21:55 2 UNITS Dextrose 50 ml UD PRN IV 08/16/24 02:30 Sodium Chloride 10 ml Q8HR IV 08/16/24 06:00 08/23/24 14:16 10 ML Nitroglycerin 0.4 mg Q5MINP PRN SL 08/16/24 02:30 Morphine Sulfate 2 mg Q30M PRN IV 08/16/24 02:30 Atorvastatin Calcium 40 mg HS PO 08/18/24 22:00 08/22/24 21:39 40 MG Hydralazine HCl 25 mg Q8HR PO 08/18/24 14:00 08/23/24 05:37 25 MG Isosorbide Mononitrate 30 mg DAILY PO 08/19/24 10:00 08/23/24 09:00 30 MG Heparin Sodium/ Dextrose 250 ml @ 12 mls/hr [id number] IV 08/22/24 04:00 08/22/24 18:02 12 MLS/HR Metoprolol Succinate 25 mg DAILY PO 08/22/24 10:00 08/23/24 08:59 25 MG Furosemide 20 mg DAILY PO 08/23/24 10:00 08/23/24 09:00 20 MG Alprazolam 0.25 mg Q6HR PRN PO 08/23/24 14:15 Examination: GENERAL:Normal, LUNGS:Normal, CVS:Normal, NEURO:Normal laboratory and microbiology Laboratory Tests 08/23/24 07:37 08/22/24 10:18 Test 08/22/24 10:18 Range/Units Serum Glucose 162 H 74-106 mg/dL Problem List/Assessment/Plan Problem List/Assessment/Plan Acute on chronic decompensated HFrEF, NYHA Class III, newly diagnosed Multivessel coronary artery disease including left main disease NSTEMI Right bundle branch block Suspected cellulitis to LLE Edh-bovvppu-usjafjfie diabetes mellitus Hypertension Likely JAMAR on CKD Obesity Plan/Recommendation (Dr. Clayton) Transthoracic echocardiogram revealed EF < 20% with severely dilated left ventricle and severe global hypokinesis. The patient underwent a coronary angiogram with left cardiac catheterization revealing multivessel coronary artery disease including left main disease for which he will be referred to higher level of care for CABG evaluation. We are currently pending acceptance to facility for possible CABG. In the meantime, continue heparin drip, continue ASA and statin as well as GDMT for CHF as renal function permits, (Hold FELICE/ARB/ARNI, SGLT2i, and mineral corticoid receptor agonist). Continue preload and afterload reduction as tolerated. Continue daily weights, maintaining fluid restriction, and strict I&Os. Cardiac surveillance, monitor for any ECG changes. Monitor ECG changes and notify. Patient notified RN that he would like to leave against medical advice. Went to speak with the patient at bedside and had an extensive conversation regarding risks of leaving against medical advice. Patient states he wants to talk to his family about leaving and will make a final decision after speaking with his family members. Thank you for allowing us to care for this patient. Please call with any questions or concerns. This medical document was created using an electronic medical record system with voice recognition software and computerized dictation system. Although this document has been carefully reviewed, there might still be some phonetic and typographical errors. Occasional wrong-word or ``sound-alike substitutions may have occurred due to the inherent limitations of voice recognition software. These areas are purely typographical due to imperfections of the software programs and do not reflect any compromise in the patient's medical care. Please read the chart carefully and recognize, using context, where these substitutions have occurred. Plan discussed with: Patient Dietary Evaluation Review Comments: 1. Continue current diet 2. Consider adding Alberto Bid (180kcal, 5 gpro) if wound worsens Expected Outcomes/Goals: 1. Pt will consume >75% of needs within 3-5 days Date of Service: Aug 23, 2024 Billing Provider: KRZYSZTOF LEWIS Common Visit Codes: [id number] INP/OBS CARE(HIGH) KRZYSZTOF LEWIS Aug 23, 2024 14:25
--- NOTE | 2024-08-23 19:17 | DVHPN2 ---
Consult Progress Note Subjective Other Systems: Patient was seen and evaluated in follow up. Patient is complaining of generalized pain. Patient is currently in NSR. Patient remains on a heparin drip. Telemetry reviewed. Objective vital signs Vital Sign Date Time Temp Pulse Resp B/P (MAP) Pulse Ox O2 Delivery O2 Flow Rate FiO2 08/23/24 16:38 98.2 89 16 118/62 (80) 98 98.2 08/23/24 08:00 Room Air* 0 21 Total Intake and Output 08/22/24 08/22/24 08/23/24 15:00 23:00 07:00 Intake Total 479 ml 610 ml 750 ml Output Total 1050 ml 1200 ml Balance 479 ml -440 ml -450 ml medications Current Medications Medications Dose Ordered Sig/Luis Armando Route Start Time Stop Time Status Last Admin Dose Admin Aspirin 81 mg DAILY PO 08/16/24 10:00 08/23/24 09:01 81 MG Acetaminophen/ Hydrocodone Bitart 1 tab Q4HP PRN PO 08/16/24 02:00 Ondansetron HCl 4 mg Q4HP PRN IV 08/16/24 02:00 Docusate Sodium 100 mg BIDPRN PRN PO 08/16/24 02:00 Acetaminophen 650 mg Q6HP PRN PO 08/16/24 02:00 Morphine Sulfate 2 mg Q4HPRN PRN IV 08/16/24 02:00 Diagnostic Test (Pha) 1 strip ACHS 08/16/24 07:00 08/23/24 17:14 1 STRIP Insulin Human Regular ACHS SC 08/16/24 07:00 08/22/24 21:55 2 UNITS Dextrose 50 ml UD PRN IV 08/16/24 02:30 Sodium Chloride 10 ml Q8HR IV 08/16/24 06:00 08/23/24 14:16 10 ML Nitroglycerin 0.4 mg Q5MINP PRN SL 08/16/24 02:30 Morphine Sulfate 2 mg Q30M PRN IV 08/16/24 02:30 Atorvastatin Calcium 40 mg HS PO 08/18/24 22:00 08/22/24 21:39 40 MG Hydralazine HCl 25 mg Q8HR PO 08/18/24 14:00 08/23/24 05:37 25 MG Isosorbide Mononitrate 30 mg DAILY PO 08/19/24 10:00 08/23/24 09:00 30 MG Heparin Sodium/ Dextrose 250 ml @ 12 mls/hr [id number] IV 08/22/24 04:00 08/23/24 16:30 12 MLS/HR Metoprolol Succinate 25 mg DAILY PO 08/22/24 10:00 08/23/24 08:59 25 MG Furosemide 20 mg DAILY PO 08/23/24 10:00 08/23/24 09:00 20 MG Alprazolam 0.25 mg Q6HR PRN PO 08/23/24 14:15 Empaglifozin 10 mg DAILY PO 08/24/24 10:00 Examination: GENERAL:Normal, HEENT:Normal, NECK:Normal, LUNGS:Normal, CVS:Normal, ABDOMEN:Normal, MSK:Normal, SKIN:Normal, NEURO:Normal laboratory and microbiology Laboratory Tests 08/23/24 07:37 08/22/24 10:18 Test 08/22/24 10:18 Range/Units Serum Glucose 162 H 74-106 mg/dL Problem List/Assessment/Plan Problem List/Assessment/Plan Acute on chronic decompensated HFrEF, NYHA Class III, newly diagnosed. Multivessel coronary artery disease including left main disease. NSTEMI. Right bundle branch block. Suspected cellulitis to LLE. Rfr-qmibpjs-rwwbojsht diabetes mellitus. Hypertension. Likely JAMAR on CKD. Obesity. Plan/Recommendation Continued all current supportive medical care. Patient has been seen by /Ashly Lua NP on my behalf, her and I discussed the plan with the patient. Transthoracic echocardiogram revealed EF < 20% with severely dilated left ventricle and severe global hypokinesis. The patient underwent a coronary angiogram with left cardiac catheterization revealing multivessel coronary artery disease including left main disease for which he will be referred to higher level of care for CABG evaluation. We are currently pending acceptance to facility for possible CABG. In the meantime, continue heparin drip, continue ASA and statin as well as GDMT for CHF as renal function permits, (Hold FELICE/ARB/ARNI, SGLT2i, and mineral corticoid receptor agonist). Continue preload and afterload reduction as tolerated. Continue daily weights, maintaining fluid restriction, and strict I&Os. Cardiac surveillance, monitor for any ECG changes. Monitor ECG changes and notify. Additional plan as per the hospital course. Plan discussed with: Patient Dietary Evaluation Review Comments: 1. Continue current diet 2. Consider adding Alberto Bid (180kcal, 5 gpro) if wound worsens Expected Outcomes/Goals: 1. Pt will consume >75% of needs within 3-5 days Date of Service: Aug 23, 2024 Billing Provider: PHOEBE MATSON MD Cardiology Common Codes: [id number] HOSP CARE(High PHOEBE MATSON MD Aug 23, 2024 17:40
[2024-08-24] VITALS (8 sets, daily range): BP systolic 98–153; BP diastolic 50–95; PULSE 53–93; RESP 16–19; TEMP 85–98.6; O2SAT 93–98
[2024-08-24] MEDS: ACETAMINOPHEN 325 MG TAB PO PRN (06:00)
[2024-08-24 06:42] LABS: Basophils # (auto) 0 10 ^3/uL (0-0.2); Basophils % (auto) 0.2 % (0.0-2.0); Eosinophils # (auto) 0.1 10 ^3/uL (0-0.8); Eosinophils % (auto) 1.9 % (0.0-7.0); Hematocrit 44.1 % (41.0-53.0); Hemoglobin 14.6 g/dL (13.5-17.5); Lymphocytes # (auto) 1.3 10 ^3/uL (0.4-5.4); Lymphocytes % (auto) 18.5 % (10.0-50.0); Mean Corpuscular Hemoglobin 27.3 pg (28.0-32.0); Mean Corpuscular Hgb Conc. 33.1 g/dL (32.0-36.0); Mean Corpuscular Volume 82.4 fL (80.0-100.0); Monocytes # (auto) 0.9 10 ^3/uL (0-1.3); Monocytes % (auto) 12.6 % (0.0-12.0); Neutrophils # (auto) 4.7 10 ^3/uL (1.6-8.6); Neutrophils % (auto) 66.8 % (37.0-80.0); Nucleated Red Blood Cells % 0.2 %; Platelet Count (auto) 165 10^3/uL (140-450); Red Blood Cells 5.35 10^6/uL (4.5-5.90); Red Cell Distribution Width 18.5 % (11.8-14.3)
[2024-08-24 07:03] LABS: INR 1.11 (0.9-1.15); Prothrombin Time 11.7 sec (9.3-11.8)
[2024-08-24 07:26] LABS: Partial Thromboplastin Time 72.7 SEC (24.5-34.5)
[2024-08-24] MEDS: HYDROcodone-ACET 5/325MG TAB PO PRN (09:31)
[2024-08-24] MEDS: EMPAGLIFLOZIN 10 MG TAB PO SCH (09:31)
[2024-08-24] MEDS: HEPARIN SODIUM (PORCINE) 5000 UNITS/ML 1ML VIAL ONE (11:36)
--- NOTE | 2024-08-24 12:35 | DVHPN2 ---
Consult Progress Note Subjective Patient reports: No new complaints Review of Systems: CVS:Normal (Denies chest pain, palpitations), RESPIRATORY:Abnormal (Improving, overnight orthopnea), MSK:Abnormal (Left hand pain) Objective vital signs Vital Sign Date Time Temp Pulse Resp B/P (MAP) Pulse Ox O2 Delivery O2 Flow Rate FiO2 08/24/24 09:31 116/58 08/24/24 09:30 75 08/24/24 08:56 98.0 18 93 98.0 08/24/24 08:00 Room Air* 0 21 Total Intake and Output 08/23/24 08/23/24 08/24/24 15:00 23:00 07:00 Intake Total 72 ml 1362 ml 640 ml Output Total 1800 ml 1750 ml Balance 72 ml -438 ml -1110 ml medications Current Medications Medications Dose Ordered Sig/Luis Armando Route Start Time Stop Time Status Last Admin Dose Admin Aspirin 81 mg DAILY PO 08/16/24 10:00 08/24/24 09:31 81 MG Acetaminophen/ Hydrocodone Bitart 1 tab Q4HP PRN PO 08/16/24 02:00 08/24/24 09:31 1 TAB Ondansetron HCl 4 mg Q4HP PRN IV 08/16/24 02:00 Docusate Sodium 100 mg BIDPRN PRN PO 08/16/24 02:00 Acetaminophen 650 mg Q6HP PRN PO 08/16/24 02:00 08/24/24 06:00 650 MG Morphine Sulfate 2 mg Q4HPRN PRN IV 08/16/24 02:00 Diagnostic Test (Pha) 1 strip ACHS 08/16/24 07:00 08/24/24 11:35 1 STRIP Insulin Human Regular ACHS SC 08/16/24 07:00 08/24/24 11:41 2 UNITS Dextrose 50 ml UD PRN IV 08/16/24 02:30 Sodium Chloride 10 ml Q8HR IV 08/16/24 06:00 08/24/24 11:43 10 ML Nitroglycerin 0.4 mg Q5MINP PRN SL 08/16/24 02:30 Morphine Sulfate 2 mg Q30M PRN IV 08/16/24 02:30 Atorvastatin Calcium 40 mg HS PO 08/18/24 22:00 08/23/24 21:33 40 MG Hydralazine HCl 25 mg Q8HR PO 08/18/24 14:00 08/24/24 05:58 25 MG Isosorbide Mononitrate 30 mg DAILY PO 08/19/24 10:00 08/24/24 09:30 30 MG Heparin Sodium/ Dextrose 250 ml @ 12 mls/hr [id number] IV 08/22/24 04:00 08/23/24 16:30 12 MLS/HR Metoprolol Succinate 25 mg DAILY PO 08/22/24 10:00 08/24/24 09:30 25 MG Furosemide 20 mg DAILY PO 08/23/24 10:00 08/24/24 09:31 20 MG Alprazolam 0.25 mg Q6HR PRN PO 08/23/24 14:15 Empaglifozin 10 mg DAILY PO 08/24/24 10:00 08/24/24 09:31 10 MG Examination: CVS:Normal (Telemetry consistent with sinus rhythm at 75 beats per minute, no overnight events noted on tele review.) laboratory and microbiology Laboratory Tests 08/24/24 05:59 08/22/24 10:18 Test 08/22/24 10:18 Range/Units Serum Glucose 162 H 74-106 mg/dL Problem List/Assessment/Plan Problem List/Assessment/Plan Problem List/Assessment/Plan Acute on chronic decompensated HFrEF, NYHA Class III, newly diagnosed Multivessel coronary artery disease including left main disease NSTEMI Right bundle branch block Suspected cellulitis to LLE Ghn-bzotehm-qwygmkexz diabetes mellitus Hypertension Likely JAMAR on CKD Obesity Plan/Recommendation (Dr. Clayton) * Transthoracic echocardiogram with EF < 20% , severely dilated left ventricle and severe global hypokinesis. * S/p coronary angiogram with left cardiac catheterization revealing multivessel coronary artery disease including left main disease. Plan for transfer to [facility] for CABG evaluation. Pending acceptance to facility for possible CABG, patient prefers [facility]. * Continue heparin drip, ASA and statin . * Continue GDMT with metoprolol Jardiance and Lasix. Derik/Arb will be held in setting of JAMAR. * Continue preload and afterload reduction as tolerated. Continue daily weights, maintaining fluid restriction, and strict I&Os. * Cardiac surveillance, monitor for any ECG changes. Monitor ECG changes and notify. Patient notified RN that he would like to leave against medical advice. Went to speak with the patient at bedside and had an extensive conversation regarding risks of leaving against medical advice. Patient states he wants to talk to his family about leaving and will make a final decision after speaking with his family members. Case Discussed with Dr Clayton. Continuing treatment as above. Denies any active overnight cardiac symptoms of chest pain palpitations. Breathing better though states stone able to lay flat. Diuresing well. Awaiting facility acceptance for [facility] transfer This medical document was created using an electronic medical record system with voice recognition software and computerized dictation system. Although this document has been carefully reviewed, there might still be some phonetic and typographical errors. Occasional wrong-word or ``sound-alike substitutions may have occurred due to the inherent limitations of voice recognition software. These areas are purely typographical due to imperfections of the software programs and do not reflect any compromise in the patient's medical care. Please read the chart carefully and recognize, using context, where these substitutions have occurred. Thank you for allowing me to participate in the management of this patient. The treatment plan was discussed with and agreed upon by patient/family including requesting consultants and ordering of imaging/procedures. Plan discussed with: Patient Dietary Evaluation Review Comments: 1. Continue current diet 2. Consider adding Alberto Bid (180kcal, 5 gpro) if wound worsens Expected Outcomes/Goals: 1. Pt will consume >75% of needs within 3-5 days Date of Service: Aug 24, 2024 Billing Provider: HERI ODEN Common Visit Codes: [id number] INP/OBS CARE(HIGH) HERI ODEN Aug 24, 2024 12:35
--- NOTE | 2024-08-24 14:04 | DVH ---
CLINICAL INDICATION: left hand pain and swelling TECHNIQUE: XY L HAND 2V XRAY Comparison: None FINDINGS/IMPRESSION: : There is no evidence of acute fracture or dislocation. Soft tissues are unremarkable.
--- NOTE | 2024-08-24 17:21 | DVHPN2 ---
Subjective 08/24 patient has left hand pain today. Otherwise no shortness of breath, no chest pain. We will evaluate the hand pain. 08/23 - doing well. no issues. euvolemia. continue CABG eval need, continue transfer plan. discharge plan in place from 08/22/24. 08/22 - doing well. no issues. continue CABG eval plan 08/21 - LHC today. showing multivessel disease, rec CABG. patient remains euvlemic, at his baseline. endorses that he is loking forward to CABG as he had been "barely been living" and wants to feel better. 08/20 - LHC tomorrow. patient remains euvolemic, w/o complains. 08/19 patient feeling improved, no chest pain. Cardiology following with plan for LHC in 2 days. We will continue to keep patient euvolemic. 08/18 update patient is improved significantly. No leg edema, but there is some rales in lower lobes bilaterally. Shortness of breadth improving RIZZO improving. Echo done showing FF HFrEF, cardiology following and 1 euvolemia before they can decide if patient needs LHC. 08/17 update- Patient doing well, lungs clear, legs improving. echo today and cardiology continues to follow. on tele. 08/16 update- Patient doing well, still gets short of breath,. Legs with significant swelling. Minimal rales. Cardiology following and consulted. Continuing diuresis, echo tomorrow. Continue telemetry. Reviewed: H&P Changes from previous H/P or p: No Changes General: Per HPI Objective Vitals Vital Signs Date Time Temp Pulse Resp B/P (MAP) Pulse Ox O2 Delivery O2 Flow Rate FiO2 08/24/24 17:09 98.1 93 19 140/95 (110) 97 98.1 08/24/24 08:00 Room Air* 0 21 Intake/Output Intake and Output 08/24/24 07:00 Intake Total 2074 ml Output Total 3550 ml Balance -1476 ml Intake Oral 1930 ml IV Total 144 ml Output Urine Total 3550 ml Exam GEN: Healthy appearing, well-developed, NAD. HEENT: NC/AT; MMM. CV: RRR, no m/r/g. LUNGS: Bibasilar rales ABD: Soft, NT/ND, NBS, no masses or organomegaly. EXT: Bilateral pitting edema traice-1+ up to shins. NEURO: Ambulating with no limitations. No focal deficits. Medications Current Medications Medications Dose Ordered Sig/Luis Armando Route Start Time Stop Time Status Last Admin Dose Admin Aspirin 81 mg DAILY PO 08/16/24 10:00 08/24/24 09:31 81 MG Acetaminophen/ Hydrocodone Bitart 1 tab Q4HP PRN PO 08/16/24 02:00 08/24/24 09:31 1 TAB Ondansetron HCl 4 mg Q4HP PRN IV 08/16/24 02:00 Docusate Sodium 100 mg BIDPRN PRN PO 08/16/24 02:00 Acetaminophen 650 mg Q6HP PRN PO 08/16/24 02:00 08/24/24 06:00 650 MG Morphine Sulfate 2 mg Q4HPRN PRN IV 08/16/24 02:00 Diagnostic Test (Pha) 1 strip ACHS 08/16/24 07:00 08/24/24 16:49 1 STRIP Insulin Human Regular ACHS SC 08/16/24 07:00 08/24/24 11:41 2 UNITS Dextrose 50 ml UD PRN IV 08/16/24 02:30 Sodium Chloride 10 ml Q8HR IV 08/16/24 06:00 08/24/24 11:43 10 ML Nitroglycerin 0.4 mg Q5MINP PRN SL 08/16/24 02:30 Morphine Sulfate 2 mg Q30M PRN IV 08/16/24 02:30 Atorvastatin Calcium 40 mg HS PO 08/18/24 22:00 08/23/24 21:33 40 MG Hydralazine HCl 25 mg Q8HR PO 08/18/24 14:00 08/24/24 14:44 25 MG Isosorbide Mononitrate 30 mg DAILY PO 08/19/24 10:00 08/24/24 09:30 30 MG Heparin Sodium/ Dextrose 250 ml @ 12 mls/hr [id number] IV 08/22/24 04:00 08/23/24 16:30 12 MLS/HR Metoprolol Succinate 25 mg DAILY PO 08/22/24 10:00 08/24/24 09:30 25 MG Furosemide 20 mg DAILY PO 08/23/24 10:00 08/24/24 09:31 20 MG Alprazolam 0.25 mg Q6HR PRN PO 08/23/24 14:15 Empaglifozin 10 mg DAILY PO 08/24/24 10:00 08/24/24 09:31 10 MG Patient Own Medication 1 BID PO 08/24/24 22:00 Laboratory Results Laboratory Tests 08/22/24 10:18 08/24/24 05:59 Coagulation Test 08/24/24 05:59 Prothrombin Time 11.7 sec (9.3-11.8) Prothrombin Time INR 1.11 (0.9-1.15) Activated Partial Thromboplast Time 72.7 SEC (24.5-34.5) *H Urinalysis Test 08/18/24 11:31 08/22/24 08:50 Urine Creatinine 15.47 mg/dL (30.0-125.0) L Urine Protein/Creatinine Ratio < 0.39 Urine Total Protein < 6.0 mg/dL (1-14) Urine Color Light-yellow (Yellow) Urine Clarity Clear (Clear) Urine pH 7.0 (5.0-9.0) Urine Specific [place] 1.013 (1.001-1.035) Urine Protein Negative (Negative) Urine Ketones Negative (Negative) Urine Blood Negative /uL (Negative) Urine Nitrite Negative (Negative) Urine Bilirubin Negative (Negative) Urine Urobilinogen Normal mg/dL (Negative) Urine Leukocyte Esterase Negative /uL (Negative) Urine RBC None seen /hpf (0 - 3) Urine WBC None seen /hpf (0 - 3) Urine Squamous Epithelial Cells Few /hpf (<5) Urine Bacteria Few /hpf (None Seen) H Urine Glucose Normal mg/dL (Normal) Labs and/or images reviewed: Labs reviewed by me, Image(s) reviewed by me Assessment/Plan Assessment/Plan 08/24 patient has left hand pain today. Otherwise no shortness of breath, no chest pain. We will evaluate the hand pain. # Acute on chronic congestive heart failure, diastolic and systolic, newly diagnosed # HFrEF # CAD , multivessel disease #ischemic heart disease # bilateral pitting edema # type 2 NSTEMI - patient presenting with chest pain shortness of breath dyspnea on exertion, orthopnea PND. NYHA worsening 2-3 - on admit DVT ultrasound negative for any DVT bilateral -BNP elevated-CXR showing possible pulmonary vascular congestion was mostly normal x-ray. -on exam patient has minimal bibasilar rales, but significant pitting edema 3+ up to upper shins. - echo 08/17 - EF less than 20% with severely dilated left ventricle and severe global hypokinesis. - differential includes acute on chronic CHF exacerbation but could also be chronic venous insufficiency, DVT unlikely with a rule out. --cardiology consulted, continue lasix 20 po qday. -started on beta-kimberly. start GDMT as telra;cori (renal tox meds held, robbi arb arni, mra)- currently only on beta-kimberly and SGLT2 inhibitor -continue diuresis, - plan per cardiology: [facility] with multivessel disease - plan for transfer [facility] for CABG. cont heparin gtt # left weber anterior wound, healing well. Likely venous stasis ulcer-we will get consulted keep dry # JAMAR, possible CKD-nephrology consulted. Diet cardiac DVT prophylaxis Lovenox subQ GI prophylaxis tolerating diet Med tele Full code Plan discussed with: Patient My Orders Orders - DAVID ARORA MD Procedure Category Date Status Time L Hand 2v Xray XY 08/24/24 Resulted 13:04 Patients Own PHA 08/24/24 In Process Medication 22:00 Date of Service: Aug 24, 2024 Billing Provider: DAVID ARORA MD Common Visit Codes: [id number] SAME DATE (HIGH) DAVID ARORA MD Aug 24, 2024 17:21
--- NOTE | 2024-08-24 20:10 | DVHPN2 ---
Consult Progress Note Subjective Other Systems: Patient was seen and evaluated in follow up. Patient is complaining of left hand pain. Denies any chest pain. Reports overnight orthopnea is improving. Left hand x-ray is unremarkable. Plan for transfer to [facility] for CABG evaluation. Pending acceptance to facility for possible CABG, patient prefers [place]. Objective vital signs Vital Sign Date Time Temp Pulse Resp B/P (MAP) Pulse Ox O2 Delivery O2 Flow Rate FiO2 08/24/24 17:09 98.1 93 19 140/95 (110) 97 98.1 08/24/24 08:00 Room Air* 0 21 Total Intake and Output 08/23/24 08/23/24 08/24/24 15:00 23:00 07:00 Intake Total 72 ml 1362 ml 640 ml Output Total 1800 ml 1750 ml Balance 72 ml -438 ml -1110 ml medications Current Medications Medications Dose Ordered Sig/Luis Armando Route Start Time Stop Time Status Last Admin Dose Admin Aspirin 81 mg DAILY PO 08/16/24 10:00 08/24/24 09:31 81 MG Acetaminophen/ Hydrocodone Bitart 1 tab Q4HP PRN PO 08/16/24 02:00 08/24/24 09:31 1 TAB Ondansetron HCl 4 mg Q4HP PRN IV 08/16/24 02:00 Docusate Sodium 100 mg BIDPRN PRN PO 08/16/24 02:00 Acetaminophen 650 mg Q6HP PRN PO 08/16/24 02:00 08/24/24 06:00 650 MG Morphine Sulfate 2 mg Q4HPRN PRN IV 08/16/24 02:00 Diagnostic Test (Pha) 1 strip ACHS 08/16/24 07:00 08/24/24 16:49 1 STRIP Insulin Human Regular ACHS SC 08/16/24 07:00 08/24/24 11:41 2 UNITS Dextrose 50 ml UD PRN IV 08/16/24 02:30 Sodium Chloride 10 ml Q8HR IV 08/16/24 06:00 08/24/24 11:43 10 ML Nitroglycerin 0.4 mg Q5MINP PRN SL 08/16/24 02:30 Morphine Sulfate 2 mg Q30M PRN IV 08/16/24 02:30 Atorvastatin Calcium 40 mg HS PO 08/18/24 22:00 08/23/24 21:33 40 MG Hydralazine HCl 25 mg Q8HR PO 08/18/24 14:00 08/24/24 14:44 25 MG Isosorbide Mononitrate 30 mg DAILY PO 08/19/24 10:00 08/24/24 09:30 30 MG Heparin Sodium/ Dextrose 250 ml @ 12 mls/hr [id number] IV 08/22/24 04:00 08/23/24 16:30 12 MLS/HR Metoprolol Succinate 25 mg DAILY PO 08/22/24 10:00 08/24/24 09:30 25 MG Furosemide 20 mg DAILY PO 08/23/24 10:00 08/24/24 09:31 20 MG Alprazolam 0.25 mg Q6HR PRN PO 08/23/24 14:15 Empaglifozin 10 mg DAILY PO 08/24/24 10:00 08/24/24 09:31 10 MG Patient Own Medication 1 BID PO 08/24/24 22:00 Examination: GENERAL:Normal, HEENT:Normal, NECK:Normal, LUNGS:Abnormal, ABDOMEN:Normal, MSK:Abnormal, SKIN:Normal, NEURO:Normal laboratory and microbiology Laboratory Tests 08/24/24 05:59 08/22/24 10:18 Test 08/22/24 10:18 Range/Units Serum Glucose 162 H 74-106 mg/dL Problem List/Assessment/Plan Problem List/Assessment/Plan Acute on chronic decompensated HFrEF, NYHA Class III, newly diagnosed. Multivessel coronary artery disease including left main disease. NSTEMI. Right bundle branch block. Suspected cellulitis to LLE. Yxi-qrhnzux-gateophyf diabetes mellitus. Hypertension. Likely JAMAR on CKD. Obesity. Plan/Recommendation Continued all current supportive medical care. Patient has been seen by Milton Boles NP on my behalf, him and I discussed the plan with the patient. Transthoracic echocardiogram with EF < 20% , severely dilated left ventricle and severe global hypokinesis. S/p coronary angiogram with left cardiac catheterization revealing multivessel coronary artery disease including left main disease. Plan for transfer to [facility] for CABG evaluation. Pending acceptance to facility for possible CABG, patient prefers [place]. Continue heparin drip, ASA and statin. Continue GDMT with metoprolol Jardiance and Lasix. Derik/Arb will be held in setting of JAMAR. Continue preload and afterload reduction as tolerated. Continue daily weights, maintaining fluid restriction, and strict I&Os. Cardiac surveillance, monitor for any ECG changes. Monitor ECG changes and notify. Patient notified RN that he would like to leave against medical advice. Went to speak with the patient at bedside and had an extensive conversation regarding risks of leaving against medical advice. Patient states he wants to talk to his family about leaving and will make a final decision after speaking with his family members. Additional plan as per the hospital course. Plan discussed with: Patient Dietary Evaluation Review Comments: 1. Continue current diet 2. Consider adding Alberto Bid (180kcal, 5 gpro) if wound worsens Expected Outcomes/Goals: 1. Pt will consume >75% of needs within 3-5 days Date of Service: Aug 24, 2024 Billing Provider: PHOEBE MATSON MD Cardiology Common Codes: [id number] HOSP CARE(High PHOEBE MATSON MD Aug 24, 2024 17:17
[2024-08-24] MEDS: VOLTAREN GEL PO SCH (21:30)
[2024-08-25] VITALS (7 sets, daily range): BP systolic 106–135; BP diastolic 51–71; PULSE 60–90; RESP 16–18; TEMP 98–98.4; O2SAT 94–99
[2024-08-25 10:40] LABS: Basophils # (auto) 0 10 ^3/uL (0-0.2); Eosinophils # (auto) 0.1 10 ^3/uL (0-0.8); Eosinophils % (auto) 2.4 % (0.0-7.0); Hemoglobin 14.4 g/dL (13.5-17.5); Lymphocytes # (auto) 1.3 10 ^3/uL (0.4-5.4); Neutrophils # (auto) 3.6 10 ^3/uL (1.6-8.6); White Blood Cell 5.7 10^3/uL (4.4-10.8)
[2024-08-25 10:43] LABS: Basophils % (auto) 0.4 % (0.0-2.0); Hematocrit 44.2 % (41.0-53.0); Lymphocytes % (auto) 22.8 % (10.0-50.0); Mean Corpuscular Hemoglobin 26.8 pg (28.0-32.0); Mean Corpuscular Hgb Conc. 32.6 g/dL (32.0-36.0); Mean Corpuscular Volume 82.3 fL (80.0-100.0); Monocytes # (auto) 0.7 10 ^3/uL (0-1.3); Monocytes % (auto) 11.6 % (0.0-12.0); Neutrophils % (auto) 62.8 % (37.0-80.0); Nucleated Red Blood Cells % 0.1 %; Platelet Count (auto) 170 10^3/uL (140-450); Red Blood Cells 5.37 10^6/uL (4.5-5.90); Red Cell Distribution Width 18.5 % (11.8-14.3)
[2024-08-25 10:56] LABS: Chloride 104 mmol/L (98-107); Potassium 4.2 mmol/L (3.5-5.1)
[2024-08-25 10:57] LABS: Anion Gap 7 (5-15); Carbon Dioxide 22 mmol/L (20-31)
[2024-08-25 10:58] LABS: Calcium 9.6 mg/dL (8.7-10.4)
[2024-08-25 10:59] LABS: Sodium 133 mmol/L (136-145)
[2024-08-25 11:03] LABS: BUN/Creatinine Ratio 20.6 (10.0-20.0); Magnesium 2.2 mg/dL (1.6-2.6)
[2024-08-25 11:04] LABS: Blood Urea Nitrogen 27 mg/dL (9-23); Glucose 155 mg/dL (74-106); INR 1.07 (0.9-1.15); Partial Thromboplastin Time 62.5 SEC (24.5-34.5); Prothrombin Time 11.5 sec (9.3-11.8)
--- NOTE | 2024-08-25 18:13 | DVHPN2 ---
Subjective 08/25 patient is doing well today, left hand pain has resolved. No other positive ROS. Hand x-ray yesterday was negative for any fractures on left hand. [facility] is denying CABG. We will continue to assess with other facilities. We will update in facility cardiology. 08/24 patient has left hand pain today. Otherwise no shortness of breath, no chest pain. We will evaluate the hand pain. 08/23 - doing well. no issues. euvolemia. continue CABG eval need, continue transfer plan. discharge plan in place from 08/22/24. 08/22 - doing well. no issues. continue CABG eval plan 08/21 - LHC today. showing multivessel disease, rec CABG. patient remains euvlemic, at his baseline. endorses that he is loking forward to CABG as he had been "barely been living" and wants to feel better. 08/20 - LHC tomorrow. patient remains euvolemic, w/o complains. 08/19 patient feeling improved, no chest pain. Cardiology following with plan for LHC in 2 days. We will continue to keep patient euvolemic. 08/18 update patient is improved significantly. No leg edema, but there is some rales in lower lobes bilaterally. Shortness of breadth improving RIZZO improving. Echo done showing FF HFrEF, cardiology following and 1 euvolemia before they can decide if patient needs LHC. 08/17 update- Patient doing well, lungs clear, legs improving. echo today and cardiology continues to follow. on tele. 08/16 update- Patient doing well, still gets short of breath,. Legs with significant swelling. Minimal rales. Cardiology following and consulted. Continuing diuresis, echo tomorrow. Continue telemetry. Reviewed: H&P Changes from previous H/P or p: No Changes General: Per HPI Objective Vitals Vital Signs Date Time Temp Pulse Resp B/P (MAP) Pulse Ox O2 Delivery O2 Flow Rate FiO2 08/25/24 17:00 98.0 87 18 117/71 (86) 97 98.0 08/25/24 08:00 Room Air* 0 21 Intake/Output Intake and Output 08/25/24 07:00 Intake Total 2472 ml Output Total 2660 ml Balance -188 ml Intake Oral 2328 ml IV Total 144 ml Output Urine Total 2660 ml Exam GEN: Healthy appearing, well-developed, NAD. HEENT: NC/AT; MMM. CV: RRR, no m/r/g. LUNGS: Bibasilar rales ABD: Soft, NT/ND, NBS, no masses or organomegaly. EXT: Bilateral pitting edema traice-1+ up to shins. NEURO: Ambulating with no limitations. No focal deficits. Medications Current Medications Medications Dose Ordered Sig/Luis Armando Route Start Time Stop Time Status Last Admin Dose Admin Aspirin 81 mg DAILY PO 08/16/24 10:00 08/25/24 10:02 81 MG Ondansetron HCl 4 mg Q4HP PRN IV 08/16/24 02:00 Docusate Sodium 100 mg BIDPRN PRN PO 08/16/24 02:00 Acetaminophen 650 mg Q6HP PRN PO 08/16/24 02:00 08/24/24 06:00 650 MG Diagnostic Test (Pha) 1 strip ACHS 08/16/24 07:00 08/25/24 17:03 1 STRIP Insulin Human Regular ACHS SC 08/16/24 07:00 08/24/24 21:52 2 UNITS Dextrose 50 ml UD PRN IV 08/16/24 02:30 Sodium Chloride 10 ml Q8HR IV 08/16/24 06:00 08/25/24 13:47 10 ML Nitroglycerin 0.4 mg Q5MINP PRN SL 08/16/24 02:30 Atorvastatin Calcium 40 mg HS PO 08/18/24 22:00 08/24/24 21:26 40 MG Hydralazine HCl 25 mg Q8HR PO 08/18/24 14:00 08/25/24 13:47 25 MG Isosorbide Mononitrate 30 mg DAILY PO 08/19/24 10:00 08/24/24 09:30 30 MG Heparin Sodium/ Dextrose 250 ml @ 12 mls/hr [id number] IV 08/22/24 04:00 08/25/24 16:43 12 MLS/HR Metoprolol Succinate 25 mg DAILY PO 08/22/24 10:00 08/24/24 09:30 25 MG Furosemide 20 mg DAILY PO 08/23/24 10:00 08/24/24 09:31 20 MG Alprazolam 0.25 mg Q6HR PRN PO 08/23/24 14:15 Empaglifozin 10 mg DAILY PO 08/24/24 10:00 08/25/24 10:02 10 MG Patient Own Medication 1 BID PO 08/24/24 22:00 Laboratory Results Laboratory Tests 08/25/24 10:00 Chemistry Test 08/25/24 10:00 Calcium Level 9.6 mg/dL (8.7-10.4) Magnesium Level 2.2 mg/dL (1.6-2.6) Coagulation Test 08/25/24 10:00 Prothrombin Time 11.5 sec (9.3-11.8) Prothrombin Time INR 1.07 (0.9-1.15) Activated Partial Thromboplast Time 62.5 SEC (24.5-34.5) H Urinalysis Test 08/18/24 11:31 08/22/24 08:50 Urine Creatinine 15.47 mg/dL (30.0-125.0) L Urine Protein/Creatinine Ratio < 0.39 Urine Total Protein < 6.0 mg/dL (1-14) Urine Color Light-yellow (Yellow) Urine Clarity Clear (Clear) Urine pH 7.0 (5.0-9.0) Urine Specific Hye 1.013 (1.001-1.035) Urine Protein Negative (Negative) Urine Ketones Negative (Negative) Urine Blood Negative /uL (Negative) Urine Nitrite Negative (Negative) Urine Bilirubin Negative (Negative) Urine Urobilinogen Normal mg/dL (Negative) Urine Leukocyte Esterase Negative /uL (Negative) Urine RBC None seen /hpf (0 - 3) Urine WBC None seen /hpf (0 - 3) Urine Squamous Epithelial Cells Few /hpf (<5) Urine Bacteria Few /hpf (None Seen) H Urine Glucose Normal mg/dL (Normal) Labs and/or images reviewed: Labs reviewed by me, Image(s) reviewed by me Assessment/Plan Assessment/Plan 08/25 patient is doing well today, left hand pain has resolved. No other positive ROS. Hand x-ray yesterday was negative for any fractures on left hand. [facility] is denying CABG. We will continue to assess with other facilities. We will update in facility cardiology. # Acute on chronic congestive heart failure, diastolic and systolic, newly diagnosed # HFrEF # CAD , multivessel disease #ischemic heart disease # bilateral pitting edema # type 2 NSTEMI - patient presenting with chest pain shortness of breath dyspnea on exertion, orthopnea PND. NYHA worsening 2-3 - on admit DVT ultrasound negative for any DVT bilateral -BNP elevated-CXR showing possible pulmonary vascular congestion was mostly normal x-ray. -on exam patient has minimal bibasilar rales, but significant pitting edema 3+ up to upper shins. - echo 08/17 - EF less than 20% with severely dilated left ventricle and severe global hypokinesis. - differential includes acute on chronic CHF exacerbation but could also be chronic venous insufficiency, DVT unlikely with a rule out. --cardiology consulted, continue lasix 20 po qday. -started on beta-kimberly. start GDMT as telra;cori (renal tox meds held, robbi arb arni, mra)- currently only on beta-kimberly and SGLT2 inhibitor -continue diuresis, - plan per cardiology: [facility] with multivessel disease - plan for transfer [facility] for CABG. cont heparin gtt (phan castillo, cont. referral other facilities) # left weber anterior wound, healing well. Likely venous stasis ulcer-we will get consulted keep dry # JAMAR, possible CKD-nephrology consulted. Diet cardiac DVT prophylaxis Lovenox subQ GI prophylaxis tolerating diet Med tele Full code Plan discussed with: Patient Date of Service: Aug 25, 2024 Billing Provider: DAVID ARORA MD Common Visit Codes: [id number] INP/OBS CARE(MOD) DAVID ARORA MD Aug 25, 2024 18:13
--- NOTE | 2024-08-25 23:04 | DVHPN2 ---
Progress Note - Dictate Date Seen: Aug 25, 2024 Medical Necessity Reason Pt with a Central, PICC or Fol: No Subjective Patient was seen and evaluated in follow-up. Patient denies any current complaints. CM is working on HLOC transfer. 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 Patient remains on heparin drip. Telemetry reviewed. vital signs Vital Sign Date Time Temp Pulse Resp B/P (MAP) Pulse Ox O2 Delivery O2 Flow Rate FiO2 08/25/24 17:00 98.0 87 18 117/71 (86) 97 98.0 08/25/24 08:00 Room Air* 0 21 Total Intake and Output 08/24/24 08/24/24 08/25/24 15:00 23:00 07:00 Intake Total 1160 ml 1094 ml 218 ml Output Total 800 ml 1860 ml Balance 1160 ml 294 ml -1642 ml medications Current Medications Medications Dose Ordered Sig/Luis Armando Route Start Time Stop Time Status Last Admin Dose Admin Aspirin 81 mg DAILY PO 08/16/24 10:00 08/25/24 10:02 81 MG Ondansetron HCl 4 mg Q4HP PRN IV 08/16/24 02:00 Docusate Sodium 100 mg BIDPRN PRN PO 08/16/24 02:00 Acetaminophen 650 mg Q6HP PRN PO 08/16/24 02:00 08/24/24 06:00 650 MG Diagnostic Test (Pha) 1 strip ACHS 08/16/24 07:00 08/25/24 17:03 1 STRIP Insulin Human Regular ACHS SC 08/16/24 07:00 08/24/24 21:52 2 UNITS Dextrose 50 ml UD PRN IV 08/16/24 02:30 Sodium Chloride 10 ml Q8HR IV 08/16/24 06:00 08/25/24 13:47 10 ML Nitroglycerin 0.4 mg Q5MINP PRN SL 08/16/24 02:30 Atorvastatin Calcium 40 mg HS PO 08/18/24 22:00 08/24/24 21:26 40 MG Hydralazine HCl 25 mg Q8HR PO 08/18/24 14:00 08/25/24 13:47 25 MG Isosorbide Mononitrate 30 mg DAILY PO 08/19/24 10:00 08/24/24 09:30 30 MG Heparin Sodium/ Dextrose 250 ml @ 12 mls/hr [id number] IV 08/22/24 04:00 08/25/24 16:43 12 MLS/HR Metoprolol Succinate 25 mg DAILY PO 08/22/24 10:00 08/24/24 09:30 25 MG Furosemide 20 mg DAILY PO 08/23/24 10:00 08/24/24 09:31 20 MG Alprazolam 0.25 mg Q6HR PRN PO 08/23/24 14:15 Empaglifozin 10 mg DAILY PO 08/24/24 10:00 08/25/24 10:02 10 MG Patient Own Medication 1 BID PO 08/24/24 22:00 objective GENERAL: Awake, alert, oriented. LUNGS: Clear. CARDIOVASCULAR: Heart sounds are good. ABDOMEN: Soft. laboratory and microbiology Laboratory Tests 08/25/24 10:00 Test 08/25/24 10:00 Range/Units Serum Glucose 155 H 74-106 mg/dL Problem List Acute on chronic decompensated HFrEF, NYHA Class III, newly diagnosed. Multivessel coronary artery disease including left main disease. NSTEMI. Right bundle branch block. Suspected cellulitis to LLE. Vom-kykvaiq-kcprwqrki diabetes mellitus. Hypertension. Likely JAMAR on CKD. Obesity. Assessment/Plan Continued all current supportive medical care. Aspirin, Lipitor, Metoprolol. Jardiance. Diuretics with Lasix. Heparin drip per protocol. Hydralazine. Additional plan as per the hospital course. Dietary Evaluation Review Comments: 1. Continue current diet 2. Consider adding Alberto Bid (180kcal, 5 gpro) if wound worsens Expected Outcomes/Goals: 1. Pt will consume >75% of needs within 3-5 days Plan discussed with: Patient PHOEBE MATSON MD Aug 25, 2024 19:12
[2024-08-26] VITALS (7 sets, daily range): BP systolic 100–133; BP diastolic 54–66; PULSE 50–84; RESP 16–20; TEMP 97.3–98.1; O2SAT 91–97
[2024-08-26 07:11] LABS: INR 1.13 (0.9-1.15); Partial Thromboplastin Time 57.8 SEC (24.5-34.5); Prothrombin Time 11.9 sec (9.3-11.8)
[2024-08-26 07:26] LABS: Alanine Aminotransferase 28 U/L (7-40); Alkaline Phosphatase 92 U/L (46-116); Anion Gap 9 (5-15); BUN/Creatinine Ratio 17.1 (10.0-20.0); Calcium 9.6 mg/dL (8.7-10.4); Carbon Dioxide 22 mmol/L (20-31); Chloride 104 mmol/L (98-107); Glucose 81 mg/dL (74-106); Potassium 4.4 mmol/L (3.5-5.1)
[2024-08-26 07:27] LABS: Albumin 3.9 g/dL (3.2-4.8); Aspartate Aminotransferase 38 U/L (13-40); Bilirubin, Total 0.8 mg/dL (0.2-1.0); Total Protein 6.7 g/dL (5.7-8.2)
[2024-08-26 07:29] LABS: Blood Urea Nitrogen 25 mg/dL (9-23); Sodium 135 mmol/L (136-145)
[2024-08-26 09:03] LABS: Basophils # (auto) 0 10 ^3/uL (0-0.2); Eosinophils # (auto) 0.2 10 ^3/uL (0-0.8); Lymphocytes # (auto) 1.5 10 ^3/uL (0.4-5.4); Mean Corpuscular Hemoglobin 26.6 pg (28.0-32.0); Monocytes # (auto) 0.7 10 ^3/uL (0-1.3); Neutrophils # (auto) 3.7 10 ^3/uL (1.6-8.6)
[2024-08-26 09:06] LABS: Basophils % (auto) 0.4 % (0.0-2.0); Hematocrit 44.7 % (41.0-53.0); Hemoglobin 14.3 g/dL (13.5-17.5); Lymphocytes % (auto) 24.6 % (10.0-50.0); Monocytes % (auto) 11.9 % (0.0-12.0); Neutrophils % (auto) 60.1 % (37.0-80.0); Nucleated Red Blood Cells % 0.1 %; Platelet Count (auto) 171 10^3/uL (140-450); Red Blood Cells 5.38 10^6/uL (4.5-5.90); Red Cell Distribution Width 18.5 % (11.8-14.3); White Blood Cell 6.2 10^3/uL (4.4-10.8)
--- NOTE | 2024-08-26 11:22 | DVHPN2 ---
Consult Progress Note Subjective Other Systems: Denies cardiac complaints at time of assessment. Patient remains on heparin drip, pending transfer to higher level of care Objective vital signs Vital Sign Date Time Temp Pulse Resp B/P (MAP) Pulse Ox O2 Delivery O2 Flow Rate FiO2 08/26/24 10:13 133/66 08/26/24 10:12 67 08/26/24 08:30 97.3 16 94 97.3 08/26/24 07:53 Room Air* 0 21 Total Intake and Output 08/25/24 08/25/24 08/26/24 15:00 23:00 07:00 Intake Total 350 ml 744 ml 150 ml Output Total 1200 ml 1600 ml Balance 350 ml -456 ml -1450 ml medications Current Medications Medications Dose Ordered Sig/Luis Armando Route Start Time Stop Time Status Last Admin Dose Admin Aspirin 81 mg DAILY PO 08/16/24 10:00 08/26/24 10:11 81 MG Ondansetron HCl 4 mg Q4HP PRN IV 08/16/24 02:00 Docusate Sodium 100 mg BIDPRN PRN PO 08/16/24 02:00 Acetaminophen 650 mg Q6HP PRN PO 08/16/24 02:00 08/24/24 06:00 650 MG Diagnostic Test (Pha) 1 strip ACHS 08/16/24 07:00 08/26/24 06:43 1 STRIP Insulin Human Regular ACHS SC 08/16/24 07:00 08/25/24 21:44 6 UNITS Dextrose 50 ml UD PRN IV 08/16/24 02:30 Sodium Chloride 10 ml Q8HR IV 08/16/24 06:00 08/26/24 05:29 10 ML Nitroglycerin 0.4 mg Q5MINP PRN SL 08/16/24 02:30 Atorvastatin Calcium 40 mg HS PO 08/18/24 22:00 08/25/24 21:27 40 MG Hydralazine HCl 25 mg Q8HR PO 08/18/24 14:00 08/26/24 05:29 25 MG Isosorbide Mononitrate 30 mg DAILY PO 08/19/24 10:00 08/26/24 10:13 30 MG Heparin Sodium/ Dextrose 250 ml @ 12 mls/hr [id number] IV 08/22/24 04:00 08/25/24 16:43 12 MLS/HR Metoprolol Succinate 25 mg DAILY PO 08/22/24 10:00 08/26/24 10:12 25 MG Furosemide 20 mg DAILY PO 08/23/24 10:00 08/26/24 10:11 20 MG Alprazolam 0.25 mg Q6HR PRN PO 08/23/24 14:15 Empaglifozin 10 mg DAILY PO 08/24/24 10:00 08/26/24 10:12 10 MG Patient Own Medication 1 BID PO 08/24/24 22:00 08/26/24 10:13 1 Examination: GENERAL:Normal, LUNGS:Normal, CVS:Normal, NEURO:Normal laboratory and microbiology Laboratory Tests 08/26/24 05:36 Test 08/26/24 05:36 Range/Units Serum Glucose 81 74-106 mg/dL Problem List/Assessment/Plan Problem List/Assessment/Plan Acute on chronic decompensated HFrEF, NYHA Class III, newly diagnosed Multivessel coronary artery disease including left main disease NSTEMI Right bundle branch block Suspected cellulitis to LLE Oxr-wwcodiy-ziumpyizt diabetes mellitus Hypertension Likely JAMAR on CKD Obesity Plan/Recommendation (Dr. Stanton) Transthoracic echocardiogram revealed EF < 20% with severely dilated left ventricle and severe global hypokinesis. The patient underwent a coronary angiogram with left cardiac catheterization revealing multivessel coronary artery disease including left main disease for which he will be referred to higher level of care for CABG evaluation. We are currently pending acceptance to facility for possible CABG. In the meantime, continue heparin drip, continue ASA and statin as well as GDMT for CHF as renal function permits , (Hold FELICE/ARB/ARNI, SGLT2i, and mineral corticoid receptor agonist). Continue preload and afterload reduction as tolerated. Continue daily weights, maintaining fluid restriction, and strict I&Os. Cardiac surveillance, monitor for any ECG changes. Monitor ECG changes and notify. Continue Nephrology recommendations. Thank you for allowing us to care for this patient. Please call with any questions or concerns. This medical document was created using an electronic medical record system with voice recognition software and computerized dictation system. Although this document has been carefully reviewed, there might still be some phonetic and typographical errors. Occasional wrong-word or ``sound-alike substitutions may have occurred due to the inherent limitations of voice recognition software. These areas are purely typographical due to imperfections of the software programs and do not reflect any compromise in the patient's medical care. Please read the chart carefully and recognize, using context, where these substitutions have occurred. Plan discussed with: Patient Dietary Evaluation Review Comments: 1. Continue current diet 2. Consider adding Alberto Bid (180kcal, 5 gpro) if wound worsens Expected Outcomes/Goals: 1. Pt will consume >75% of needs within 3-5 days Date of Service: Aug 26, 2024 Billing Provider: MARYLOU STANTON MD Common Visit Codes: [id number] INP/OBS CARE(HIGH) KRZYSZTOF LEWIS SKIMMER Aug 26, 2024 11:22
[2024-08-26] MEDS: LACTATED RINGER'S 1,000 ML IV ONE ×2 (13:45→15:59)
[2024-08-26] MEDS: METOPROLOL TARTRATE 1MG/1ML-5ML VIAL IV ONE (16:40)
[2024-08-26] MEDS: METOPROLOL SUCCINATE XL 50 MG TAB PO ONE (17:28)
--- NOTE | 2024-08-26 19:56 | DVHPN2 ---
Subjective 08/26 - patient is well. still pending decision on CABG. tachycarda today with cards fllowing. 08/25 patient is doing well today, left hand pain has resolved. No other positive ROS. Hand x-ray yesterday was negative for any fractures on left hand. Lai Castillo is denying CABG. We will continue to assess with other facilities. We will update in facility cardiology. 08/24 patient has left hand pain today. Otherwise no shortness of breath, no chest pain. We will evaluate the hand pain. 08/23 - doing well. no issues. euvolemia. continue CABG eval need, continue transfer plan. discharge plan in place from 08/22/24. 08/22 - doing well. no issues. continue CABG eval plan 08/21 - LHC today. showing multivessel disease, rec CABG. patient remains euvlemic, at his baseline. endorses that he is loking forward to CABG as he had been "barely been living" and wants to feel better. 08/20 - LHC tomorrow. patient remains euvolemic, w/o complains. 08/19 patient feeling improved, no chest pain. Cardiology following with plan for LHC in 2 days. We will continue to keep patient euvolemic. 08/18 update patient is improved significantly. No leg edema, but there is some rales in lower lobes bilaterally. Shortness of breadth improving RIZZO improving. Echo done showing FF HFrEF, cardiology following and 1 euvolemia before they can decide if patient needs LHC. 08/17 update- Patient doing well, lungs clear, legs improving. echo today and cardiology continues to follow. on tele. 08/16 update- Patient doing well, still gets short of breath,. Legs with significant swelling. Minimal rales. Cardiology following and consulted. Continuing diuresis, echo tomorrow. Continue telemetry. Reviewed: H&P Changes from previous H/P or p: No Changes General: Per HPI Objective Vitals Vital Signs Date Time Temp Pulse Resp B/P (MAP) Pulse Ox O2 Delivery O2 Flow Rate FiO2 08/26/24 17:40 103 123/73 08/26/24 12:53 97.5 17 95 97.5 08/26/24 07:53 Room Air* 0 21 Intake/Output Intake and Output 08/26/24 07:00 Intake Total 1244 ml Output Total 2800 ml Balance -1556 ml Intake Oral 1100 ml IV Total 144 ml Output Urine Total 2800 ml Stool Total 0 ml # Voids 7 Exam GEN: Healthy appearing, well-developed, NAD. HEENT: NC/AT; MMM. CV: RRR, no m/r/g. LUNGS: Bibasilar rales ABD: Soft, NT/ND, NBS, no masses or organomegaly. EXT: left weber wound, otherwise dry extrem, pulses palpable. NEURO: Ambulating with no limitations. No focal deficits. Medications Current Medications Medications Dose Ordered Sig/Luis Armando Route Start Time Stop Time Status Last Admin Dose Admin Aspirin 81 mg DAILY PO 08/16/24 10:00 08/26/24 10:11 81 MG Ondansetron HCl 4 mg Q4HP PRN IV 08/16/24 02:00 Docusate Sodium 100 mg BIDPRN PRN PO 08/16/24 02:00 Acetaminophen 650 mg Q6HP PRN PO 08/16/24 02:00 08/24/24 06:00 650 MG Diagnostic Test (Pha) 1 strip ACHS 08/16/24 07:00 08/26/24 17:00 1 STRIP Insulin Human Regular ACHS SC 08/16/24 07:00 08/26/24 18:26 3 UNITS Dextrose 50 ml UD PRN IV 08/16/24 02:30 Sodium Chloride 10 ml Q8HR IV 08/16/24 06:00 08/26/24 12:19 10 ML Nitroglycerin 0.4 mg Q5MINP PRN SL 08/16/24 02:30 Atorvastatin Calcium 40 mg HS PO 08/18/24 22:00 08/25/24 21:27 40 MG Hydralazine HCl 25 mg Q8HR PO 08/18/24 14:00 08/26/24 14:19 25 MG Isosorbide Mononitrate 30 mg DAILY PO 08/19/24 10:00 08/26/24 10:13 30 MG Heparin Sodium/ Dextrose 250 ml @ 12 mls/hr [id number] IV 08/22/24 04:00 08/26/24 12:18 12 MLS/HR Furosemide 20 mg DAILY PO 08/23/24 10:00 08/26/24 10:11 20 MG Alprazolam 0.25 mg Q6HR PRN PO 08/23/24 14:15 Empaglifozin 10 mg DAILY PO 08/24/24 10:00 08/26/24 10:12 10 MG Patient Own Medication 1 BID PO 08/24/24 22:00 08/26/24 10:13 1 Metoprolol Succinate 50 mg DAILY PO 08/27/24 10:00 Laboratory Results Laboratory Tests 08/26/24 05:36 Chemistry Test 08/26/24 05:36 Albumin 3.9 g/dL (3.2-4.8) Calcium Level 9.6 mg/dL (8.7-10.4) Total Protein 6.7 g/dL (5.7-8.2) Coagulation Test 08/26/24 05:36 Prothrombin Time 11.9 sec (9.3-11.8) H Prothrombin Time INR 1.13 (0.9-1.15) Activated Partial Thromboplast Time 57.8 SEC (24.5-34.5) H LFT Test 08/26/24 05:36 Alanine Aminotransferase (ALT) 28 U/L (7-40) Alkaline Phosphatase 92 U/L (46-116) Aspartate Amino Transferase (AST) 38 U/L (13-40) Total Bilirubin 0.8 mg/dL (0.2-1.0) Urinalysis Test 08/18/24 11:31 08/22/24 08:50 Urine Creatinine 15.47 mg/dL (30.0-125.0) L Urine Protein/Creatinine Ratio < 0.39 Urine Total Protein < 6.0 mg/dL (1-14) Urine Color Light-yellow (Yellow) Urine Clarity Clear (Clear) Urine pH 7.0 (5.0-9.0) Urine Specific [place] 1.013 (1.001-1.035) Urine Protein Negative (Negative) Urine Ketones Negative (Negative) Urine Blood Negative /uL (Negative) Urine Nitrite Negative (Negative) Urine Bilirubin Negative (Negative) Urine Urobilinogen Normal mg/dL (Negative) Urine Leukocyte Esterase Negative /uL (Negative) Urine RBC None seen /hpf (0 - 3) Urine WBC None seen /hpf (0 - 3) Urine Squamous Epithelial Cells Few /hpf (<5) Urine Bacteria Few /hpf (None Seen) H Urine Glucose Normal mg/dL (Normal) Labs and/or images reviewed: Labs reviewed by me, Image(s) reviewed by me Assessment/Plan Assessment/Plan 08/26 - patient is well. still pending decision on CABG. tachycardia today with cards following. # Acute on chronic congestive heart failure, diastolic and systolic, newly diagnosed # HFrEF # CAD , multivessel disease #ischemic heart disease # bilateral pitting edema # type 2 NSTEMI - patient presenting with chest pain shortness of breath dyspnea on exertion, orthopnea PND. NYHA worsening 2-3 - on admit DVT ultrasound negative for any DVT bilateral -BNP elevated-CXR showing possible pulmonary vascular congestion was mostly normal x-ray. -on exam patient has minimal bibasilar rales, but significant pitting edema 3+ up to upper shins. - echo 08/17 - EF less than 20% with severely dilated left ventricle and severe global hypokinesis. - differential includes acute on chronic CHF exacerbation but could also be chronic venous insufficiency, DVT unlikely with a rule out. --cardiology consulted, continue lasix 20 po qday. -started on beta-kimberly. start GDMT as telra;cori (renal tox meds held, robbi arb arni, mra)- currently only on beta-kimberly and SGLT2 inhibitor -continue diuresis, - plan per cardiology: [facility] with multivessel disease - plan for transfer HLOC for CABG. cont heparin gtt (phan castillo, cont. referral other facilities) tachycardia - on 08/26 - aflut vs junctinoal tach - trial metoprolol 12.5 qday # left weber anterior wound, healing well. Likely venous stasis ulcer-we will get consulted keep dry # JAMAR, possible CKD-nephrology consulted. Diet cardiac DVT prophylaxis Lovenox subQ GI prophylaxis tolerating diet Med tele Full code Plan discussed with: Patient My Orders Orders - DAVID ARORA MD Procedure Category Date Status Time Electrocardigram EKG 08/26/24 Logged 12:46 Date of Service: Aug 26, 2024 Billing Provider: DAVID ARORA MD Common Visit Codes: [id number] INP/OBS CARE(HIGH) DAVID ARORA MD Aug 26, 2024 19:56
[2024-08-27 01:00] VITALS: BP_SYST 108; BP_SYST 112; BP_DIAS 67; BP_DIAS 71; PULSE 70; PULSE 77; RESP 20; TEMP 97.7; TEMP 97.8; O2SAT 97; O2SAT 98
[2024-08-27 05:00] VITALS: BP 108/71; PULSE 77; RESP 20; TEMP 97.8; O2SAT 98
[2024-08-27 06:29] LABS: Basophils # (auto) 0 10 ^3/uL (0-0.2); Basophils % (auto) 0.2 % (0.0-2.0); Eosinophils # (auto) 0.2 10 ^3/uL (0-0.8); Eosinophils % (auto) 3.6 % (0.0-7.0); Hemoglobin 14.2 g/dL (13.5-17.5); Lymphocytes # (auto) 1.5 10 ^3/uL (0.4-5.4); Lymphocytes % (auto) 28.7 % (10.0-50.0); Mean Corpuscular Hemoglobin 27.1 pg (28.0-32.0); Mean Corpuscular Volume 82.2 fL (80.0-100.0); Monocytes # (auto) 0.6 10 ^3/uL (0-1.3); Monocytes % (auto) 11.9 % (0.0-12.0); Neutrophils # (auto) 2.9 10 ^3/uL (1.6-8.6); Neutrophils % (auto) 55.6 % (37.0-80.0); Nucleated Red Blood Cells % 0.1 %; Platelet Count (auto) 162 10^3/uL (140-450); Red Blood Cells 5.23 10^6/uL (4.5-5.90); White Blood Cell 5.2 10^3/uL (4.4-10.8)
[2024-08-27 07:02] LABS: INR 1.08 (0.9-1.15); Prothrombin Time 11.4 sec (9.3-11.8)
[2024-08-27 07:39] LABS: Partial Thromboplastin Time 85.5 SEC (24.5-34.5)
[2024-08-27 08:00] VITALS: PULSE 84
[2024-08-27 08:27] LABS: Chloride 104 mmol/L (98-107); Potassium 4.4 mmol/L (3.5-5.1)
[2024-08-27 08:28] LABS: Anion Gap 7 (5-15); Carbon Dioxide 24 mmol/L (20-31)
[2024-08-27 08:29] LABS: Calcium 9.5 mg/dL (8.7-10.4)
[2024-08-27 08:34] LABS: BUN/Creatinine Ratio 17.2 (10.0-20.0); Glucose 89 mg/dL (74-106)
[2024-08-27 08:38] LABS: Blood Urea Nitrogen 26 mg/dL (9-23); Sodium 135 mmol/L (136-145)
[2024-08-27] MEDS: HEPARIN DRIP/D5W 100UNITS/ML 250 ML IV SCH (08:45)
[2024-08-27 09:00] VITALS: BP_SYST 119; BP_SYST 128; BP_DIAS 61; BP_DIAS 62; PULSE 80; PULSE 89; RESP 18; RESP 20; O2SAT 84; O2SAT 95
--- NOTE | 2024-08-27 09:33 | ECG ---
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
[2024-08-27] MEDS: METOPROLOL SUCCINATE XL 50 MG TAB PO SCH (09:57)
[2024-08-27 13:00] VITALS: BP 115/71; PULSE 72; RESP 20; TEMP 98.1; O2SAT 95
[2024-08-27 15:10] LABS: INR 1.06 (0.9-1.15); Partial Thromboplastin Time 49.4 SEC (24.5-34.5); Prothrombin Time 11.2 sec (9.3-11.8)
[2024-08-27 17:00] VITALS: BP 144/75; PULSE 77; RESP 20; TEMP 98.3; O2SAT 94
--- NOTE | 2024-08-27 17:02 | DVHPN2 ---
Subjective 08/27 lai castillo declined w reason 'por surgical candidate' . [employer] declination reason unclear. [facility] transfer center connects to [facility], who approve for transfer for CABG. 08/26 - patient is well. still pending decision on CABG. tachycarda today with cards fllowing. 08/25 patient is doing well today, left hand pain has resolved. No other positive ROS. Hand x-ray yesterday was negative for any fractures on left hand. Lai Castillo is denying CABG. We will continue to assess with other facilities. We will update in facility cardiology. 08/24 patient has left hand pain today. Otherwise no shortness of breath, no chest pain. We will evaluate the hand pain. 08/23 - doing well. no issues. euvolemia. continue CABG eval need, continue transfer plan. discharge plan in place from 08/22/24. 08/22 - doing well. no issues. continue CABG eval plan 08/21 - LHC today. showing multivessel disease, rec CABG. patient remains euvlemic, at his baseline. endorses that he is loking forward to CABG as he had been "barely been living" and wants to feel better. 08/20 - LHC tomorrow. patient remains euvolemic, w/o complains. 08/19 patient feeling improved, no chest pain. Cardiology following with plan for LHC in 2 days. We will continue to keep patient euvolemic. 08/18 update patient is improved significantly. No leg edema, but there is some rales in lower lobes bilaterally. Shortness of breadth improving RIZZO improving. Echo done showing FF HFrEF, cardiology following and 1 euvolemia before they can decide if patient needs LHC. 08/17 update- Patient doing well, lungs clear, legs improving. echo today and cardiology continues to follow. on tele. 08/16 update- Patient doing well, still gets short of breath,. Legs with significant swelling. Minimal rales. Cardiology following and consulted. Continuing diuresis, echo tomorrow. Continue telemetry. Reviewed: H&P Changes from previous H/P or p: No Changes General: Per HPI Objective Vitals Vital Signs Date Time Temp Pulse Resp B/P (MAP) Pulse Ox O2 Delivery O2 Flow Rate FiO2 08/27/24 14:01 128/72 08/27/24 13:00 98.1 72 20 95 98.1 08/27/24 08:00 Room Air* 0 21 Intake/Output Intake and Output 08/27/24 07:00 Intake Total 1668 ml Output Total 650 ml Balance 1018 ml Intake Oral 1168 ml IV Total 500 ml Output Urine Total 650 ml # Voids 8 # Bowel Movements 2 Exam GEN: Healthy appearing, well-developed, NAD. HEENT: NC/AT; MMM. CV: RRR, no m/r/g. LUNGS: Bibasilar rales ABD: Soft, NT/ND, NBS, no masses or organomegaly. EXT: left weber wound, otherwise dry extrem, pulses palpable. NEURO: Ambulating with no limitations. No focal deficits. Medications Current Medications Medications Dose Ordered Sig/Luis Armando Route Start Time Stop Time Status Last Admin Dose Admin Aspirin 81 mg DAILY PO 08/16/24 10:00 08/27/24 09:55 81 MG Ondansetron HCl 4 mg Q4HP PRN IV 08/16/24 02:00 Docusate Sodium 100 mg BIDPRN PRN PO 08/16/24 02:00 Acetaminophen 650 mg Q6HP PRN PO 08/16/24 02:00 08/24/24 06:00 650 MG Diagnostic Test (Pha) 1 strip ACHS 08/16/24 07:00 08/27/24 11:33 1 STRIP Insulin Human Regular ACHS SC 08/16/24 07:00 08/26/24 22:00 3 UNITS Dextrose 50 ml UD PRN IV 08/16/24 02:30 Sodium Chloride 10 ml Q8HR IV 08/16/24 06:00 08/27/24 14:00 10 ML Nitroglycerin 0.4 mg Q5MINP PRN SL 08/16/24 02:30 Atorvastatin Calcium 40 mg HS PO 08/18/24 22:00 08/26/24 21:49 40 MG Hydralazine HCl 25 mg Q8HR PO 08/18/24 14:00 08/27/24 14:01 25 MG Isosorbide Mononitrate 30 mg DAILY PO 08/19/24 10:00 08/26/24 10:13 30 MG Furosemide 20 mg DAILY PO 08/23/24 10:00 08/27/24 09:56 20 MG Alprazolam 0.25 mg Q6HR PRN PO 08/23/24 14:15 Empaglifozin 10 mg DAILY PO 08/24/24 10:00 08/27/24 09:55 10 MG Patient Own Medication 1 BID PO 08/24/24 22:00 08/27/24 09:58 1 Metoprolol Succinate 50 mg DAILY PO 08/27/24 10:00 Heparin Sodium/ Dextrose 250 ml @ 10 mls/hr Q24H IV 08/27/24 08:45 Laboratory Results Laboratory Tests 08/27/24 05:50 Chemistry Test 08/27/24 05:50 Calcium Level 9.5 mg/dL (8.7-10.4) Coagulation Test 08/27/24 05:50 08/27/24 14:23 Prothrombin Time 11.4 sec (9.3-11.8) 11.2 sec (9.3-11.8) Prothrombin Time INR 1.08 (0.9-1.15) 1.06 (0.9-1.15) Activated Partial Thromboplast Time 85.5 SEC (24.5-34.5) *H 49.4 SEC (24.5-34.5) H Urinalysis Test 08/18/24 11:31 08/22/24 08:50 Urine Creatinine 15.47 mg/dL (30.0-125.0) L Urine Protein/Creatinine Ratio < 0.39 Urine Total Protein < 6.0 mg/dL (-) Urine Color Light-yellow (Yellow) Urine Clarity Clear (Clear) Urine pH 7.0 (5.0-9.0) Urine Specific [place] 1.013 (1.001-1.035) Urine Protein Negative (Negative) Urine Ketones Negative (Negative) Urine Blood Negative /uL (Negative) Urine Nitrite Negative (Negative) Urine Bilirubin Negative (Negative) Urine Urobilinogen Normal mg/dL (Negative) Urine Leukocyte Esterase Negative /uL (Negative) Urine RBC None seen /hpf (0 - 3) Urine WBC None seen /hpf (0 - 3) Urine Squamous Epithelial Cells Few /hpf (<5) Urine Bacteria Few /hpf (None Seen) H Urine Glucose Normal mg/dL (Normal) Labs and/or images reviewed: Labs reviewed by me, Image(s) reviewed by me Assessment/Plan Assessment/Plan 08/27 lai castillo declined w reason 'por surgical candidate' . [employer] declination reason unclear. [facility] transfer center connects to [facility], who approve for transfer for CABG. # Acute on chronic congestive heart failure, diastolic and systolic, newly diagnosed # HFrEF # CAD , multivessel disease #ischemic heart disease # bilateral pitting edema # type 2 NSTEMI - patient presenting with chest pain shortness of breath dyspnea on exertion, orthopnea PND. NYHA worsening 2-3 - on admit DVT ultrasound negative for any DVT bilateral -BNP elevated-CXR showing possible pulmonary vascular congestion was mostly normal x-ray. -on exam patient has minimal bibasilar rales, but significant pitting edema 3+ up to upper shins. - echo 08/17 - EF less than 20% with severely dilated left ventricle and severe global hypokinesis. - differential includes acute on chronic CHF exacerbation but could also be chronic venous insufficiency, DVT unlikely with a rule out. --cardiology consulted, continue lasix 20 po qday. -started on beta-kimberly. start GDMT as telra;cori (renal tox meds held, robbi arb arni, mra)- currently only on beta-kimberly and SGLT2 inhibitor -continue diuresis, - plan per cardiology: [facility] with multivessel disease - plan for transfer HLOC for CABG. cont heparin gtt (phan castillo, cont. referral other facilities) tachycardia - on 08/26 - aflut vs junctinoal tach - 08/27 - rate 80s. contnue metoprolol - metoprolol 12.5 qday # left weber anterior wound, healing well. Likely venous stasis ulcer-we will get consulted keep dry # JAMAR, possible CKD-nephrology consulted. Diet cardiac DVT prophylaxis Lovenox subQ GI prophylaxis tolerating diet Med tele Full code Plan discussed with: Patient Date of Service: Aug 27, 2024 Billing Provider: DAVID ARORA MD Common Visit Codes: [id number] INP/OBS CARE(MOD) DAVID ARORA MD Aug 27, 2024 17:02
--- NOTE | 2024-08-27 17:28 | DVHPN2 ---
Consult Progress Note Subjective Other Systems: Patient was accepted at [facility]. Patient remains on heparin drip No cardiac complaints at time of assessment Objective vital signs Vital Sign Date Time Temp Pulse Resp B/P (MAP) Pulse Ox O2 Delivery O2 Flow Rate FiO2 08/27/24 17:00 98.3 77 20 144/75 (98) 94 98.3 08/27/24 08:00 Room Air* 0 21 Total Intake and Output 08/26/24 08/26/24 08/27/24 15:00 23:00 07:00 Intake Total 1428 ml 240 ml Output Total 650 ml Balance 1428 ml -410 ml medications Current Medications Medications Dose Ordered Sig/Luis Armando Route Start Time Stop Time Status Last Admin Dose Admin Aspirin 81 mg DAILY PO 08/16/24 10:00 08/27/24 09:55 81 MG Ondansetron HCl 4 mg Q4HP PRN IV 08/16/24 02:00 Docusate Sodium 100 mg BIDPRN PRN PO 08/16/24 02:00 Acetaminophen 650 mg Q6HP PRN PO 08/16/24 02:00 08/24/24 06:00 650 MG Diagnostic Test (Pha) 1 strip ACHS 08/16/24 07:00 08/27/24 11:33 1 STRIP Insulin Human Regular ACHS SC 08/16/24 07:00 08/26/24 22:00 3 UNITS Dextrose 50 ml UD PRN IV 08/16/24 02:30 Sodium Chloride 10 ml Q8HR IV 08/16/24 06:00 08/27/24 14:00 10 ML Nitroglycerin 0.4 mg Q5MINP PRN SL 08/16/24 02:30 Atorvastatin Calcium 40 mg HS PO 08/18/24 22:00 08/26/24 21:49 40 MG Hydralazine HCl 25 mg Q8HR PO 08/18/24 14:00 08/27/24 14:01 25 MG Isosorbide Mononitrate 30 mg DAILY PO 08/19/24 10:00 08/26/24 10:13 30 MG Furosemide 20 mg DAILY PO 08/23/24 10:00 08/27/24 09:56 20 MG Alprazolam 0.25 mg Q6HR PRN PO 08/23/24 14:15 Empaglifozin 10 mg DAILY PO 08/24/24 10:00 08/27/24 09:55 10 MG Patient Own Medication 1 BID PO 08/24/24 22:00 08/27/24 09:58 1 Metoprolol Succinate 50 mg DAILY PO 08/27/24 10:00 Heparin Sodium/ Dextrose 250 ml @ 10 mls/hr Q24H IV 08/27/24 08:45 Examination: GENERAL:Normal, LUNGS:Normal, CVS:Normal, NEURO:Normal laboratory and microbiology Laboratory Tests 08/27/24 05:50 Test 08/27/24 05:50 Range/Units Serum Glucose 89 74-106 mg/dL Problem List/Assessment/Plan Problem List/Assessment/Plan Acute on chronic decompensated HFrEF, NYHA Class III, newly diagnosed Multivessel coronary artery disease including left main disease A-Flutter, new onset NSTEMI Right bundle branch block Suspected cellulitis to LLE Ndy-tkvxyrb-hdoyzufke diabetes mellitus Hypertension Likely JAMAR on CKD Obesity Plan/Recommendation (Dr. Stanton) Transthoracic echocardiogram revealed EF < 20% with severely dilated left ventricle and severe global hypokinesis. The patient underwent a coronary angiogram with left cardiac catheterization revealing multivessel coronary artery disease including left main disease for which he will be referred to higher level of care for CABG evaluation. As of today, the patient was recently accepted to [facility]. 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 In the meantime, continue heparin drip, continue ASA and statin as well as GDMT for CHF as renal function permits , (Hold FELICE/ARB/ARNI, SGLT2i, and mineral corticoid receptor agonist). Continue preload and afterload reduction as tolerated. Continue daily weights, maintaining fluid restriction, and strict I&Os. Cardiac surveillance, monitor for any ECG changes. Of note, the patient was confirmed to go into an atrial flutter rhythm on child monitor. [id number] VASc score: 4 points, HAS-BLED score: 1 point. The patient will benefit from NOAC therapy in the future (unable to start at this time given current heparin gtt and plans for CABG). Monitor ECG changes and notify. Continue Nephrology recommendations. Thank you for allowing us to care for this patient. Please call with any questions or concerns. This medical document was created using an electronic medical record system with voice recognition software and computerized dictation system. Although this document has been carefully reviewed, there might still be some phonetic and typographical errors. Occasional wrong-word or ``sound-alike substitutions may have occurred due to the inherent limitations of voice recognition software. These areas are purely typographical due to imperfections of the software programs and do not reflect any compromise in the patient's medical care. Please read the chart carefully and recognize, using context, where these substitutions have occurred. Plan discussed with: Patient, Other (Bedside RN) Dietary Evaluation Review Comments: 1. Continue current diet 2. Consider adding Alberto Bid (180kcal, 5 gpro) if wound worsens Expected Outcomes/Goals: 1. Pt will consume >75% of needs within 3-5 days Date of Service: Aug 27, 2024 Billing Provider: MARYLOU STANTON MD Common Visit Codes: [id number] INP/OBS CARE(HIGH) KRZYSZTOF LEWIS PHOTOGEOLOGIST Aug 27, 2024 17:28
== END 2024-08-27 18:47 | disposition short-term general hospital (02) | DRG 192 ==
LOC: ER 16:36 → TELE 08-16 02:23 → TELE-CENTR 08-16 23:05
PROVIDERS: ADMIT Student in an Organized Health Care Education/Training Program; ATTEND Student in an Organized Health Care Education/Training Program
PROC: 4A023N7 Measurement of Cardiac Sampling and Pressure, Left Heart, Percutaneous Approach (ICD-10-PCS; principal; 2024-08-21)
PROC: B211YZZ Fluoroscopy of Multiple Coronary Arteries using Other Contrast (ICD-10-PCS; 2024-08-21)
PROC: B215YZZ Fluoroscopy of Left Heart using Other Contrast (ICD-10-PCS; 2024-08-21)
DX: I13.0 Hypertensive heart and chronic kidney disease with heart failure and stage 1 through stage 4 chronic kidney disease, or unspecified chronic kidney disease (principal); N17.0 Acute kidney failure with tubular necrosis; I21.A1 Myocardial infarction type 2; I25.10 Atherosclerotic heart disease of native coronary artery without angina pectoris; I50.43 Acute on chronic combined systolic (congestive) and diastolic (congestive) heart failure; L03.116 Cellulitis of left lower limb; E11.22 Type 2 diabetes mellitus with diabetic chronic kidney disease; E11.65 Type 2 diabetes mellitus with hyperglycemia; N18.9 Chronic kidney disease, unspecified; E66.9 Obesity, unspecified; I44.0 Atrioventricular block, first degree; I45.10 Unspecified right bundle-branch block; Z79.84 Long term (current) use of oral hypoglycemic drugs; Z79.899 Other long term (current) drug therapy; Z68.32 Body mass index [BMI] 32.0-32.9, adult
CPT/HCPCS: 36415; 71045; 73120; 80048; 80053; 80061; 81001; 82570; 82962; 83036; 83735; 83880; 84156; 84443; 84484; 85025; 85610; 85730; 86850; 86900; 86901; 93005; 93306; 93458; 93970; 99152; G0378; J1815; J2250; Q9967